=== PATIENT | female | born 1985 | race Caucasian/White ===

== ENCOUNTER 2016-05-05 07:38 | Inpatient (IN) | payer OTHER ==
[~2016-05-05] VITALS: Ht 160 cm; Wt 58.0 kg
[2016-05-05] MEDS ORDERED: CHARCOAL ACTIVATED LIQUID 25 GM/120 ML BTL As Ordered ONE (08:02)
[2016-05-05] MEDS ORDERED: ONDANSETRON 4MG/2ML VIAL (J2405) As Ordered ONE (08:16)
[2016-05-05 08:19] LABS: MEAN CORPUSCULAR HEMOGLOBIN 29.3 pg (27.0-33.0); MEAN CORPUSCULAR HGB CONC 34.2 g/dl (32.0-36.5); MEAN CORPUSCULAR VOLUME 85.6 fl (80.0-96.0); RED CELL DISTRIBUTION WIDTH 12.6 % (11.5-14.5); WHITE BLOOD COUNT 4.6 K/mm3 (4.0-10.0)
[2016-05-05 08:33] LABS: CONTROL LINE HCG INT CTR LINE PRESENT
[2016-05-05 08:56] LABS: ALBUMIN 4.1 GM/DL (3.2-5.2); ALBUMIN/GLOBULIN RATIO 1.78 (1.00-1.93); ALKALINE PHOSPHATASE 143 U/L (45-117); ALT/SGPT 32 U/L (12-78); ANION GAP 13 MEQ/L (8-16); AST/SGOT 27 U/L (15-37); BILIRUBIN,DIRECT 0.2 MG/DL (0.0-0.2); BILIRUBIN,TOTAL 1.1 MG/DL (0.2-1.0); BLOOD UREA NITROGEN 18 MG/DL (7-18); CALCIUM LEVEL 9.5 MG/DL (8.5-10.1); CARBON DIOXIDE LEVEL 29 MEQ/L (21-32); CHLORIDE LEVEL 101 MEQ/L (98-107); CREATININE FOR GFR 0.93 MG/DL (0.55-1.02); GLOMERULAR FILTRATION RATE > 60.0 (>60); GLUCOSE, FASTING 80 MG/DL (70-105); POTASSIUM SERUM 3.4 MEQ/L (3.5-5.1); SODIUM LEVEL 143 MEQ/L (136-145); TOTAL PROTEIN 6.4 GM/DL (6.4-8.2)
[2016-05-05 09:29] LABS: AMPHETAMINES LEVEL URINE NEGATIVE (NEGATIVE); BENZODIAZEPINES URINE POSITIVE (NEGATIVE); COCAINE METABOLITE URINE NEGATIVE (NEGATIVE); CONTROL LINE INT CTR LINE PRESENT; METHADONE URINE NEGATIVE (NEGATIVE); OPIATES URINE NEGATIVE (NEGATIVE); TRICYCLIC ANTIDEPRESS URINE NEGATIVE (NEGATIVE)
[2016-05-05] MEDS ORDERED: ALPR0.5T3 PO (15:35)
[2016-05-05] MEDS ORDERED: DRIS50002 PO (15:35)
[2016-05-05] MEDS ORDERED: OMEP40CA2 PO (15:35)
[2016-05-05] MEDS ORDERED: SERT-141 PO (15:35)
[2016-05-05] MEDS ORDERED: ACETAMINOPHEN 325 MG TAB As Ordered ONE (17:11)
--- NOTE | 2016-05-05 21:40 | EDDOCDS ---
Nurse's Notes [facility] Name: Farhana Pena Age: 30 yrs Sex: Female : 1985 Arrival Date: 05/05/2016 Time: 07:38 Bed [facility] MD: Diagnosis: Major depressive disorder, recurrent, moderate;Suicide attempt Presentation: 05/05 07:48 Presenting complaint: Patient states: ''I tried to overdose but it didn't work'', dwg admits to taking 15 Xanax last night at 830pm, 12 Zoloft at 530am today, and 5 ''painkillers'' at 7am today. Distraught after here kids were taken away from yesterday by their father. Suicide/Homicide risk assessment- The patient admits to and/or has been reported to be having suicidal ideations. The patient reports that he/she has experienced a significant life altering event in the last 30 days. Status: Patient is not a patient service rep or dependent. Transition of care: patient was not received from another setting of care. 07:48 Acuity: CECILLE Level 2 dw 07:48 Method Of Arrival: Wheelchair [facility] 07:56 Adult Sepsis Screening: Patient has new or worsening altered mentation (1 point). dwg Patient's respiratory rate is less than 22. Systolic blood pressure is greater than 100. Patient has a qSOFA score of 1- Negative Sepsis Screen. Red Flag criteria, patient assessed and taken directly to a bed. Triage Assessment: 07:53 General: Appears Awake and alert. Behavior is cooperative, flat. Pain: Location: lumbar dwg area, left low back and right low back. 21:37 HIV screening NA for this visit Offered previously. [facility] AUDITOR/QUALITY: 07:53 LMP 04/26/2016 dwg Historical: - Allergies: Denies any allergies; - Home Meds: 1. Unable to obtain, will contact [employer] on [email or web address] for med list 2. alprazolam 0.5 mg Oral tab 1 tab 3 times per day (Last dose: 05/05/2016) 3. Sertraline 50 mg daily - PMHx: Depression; iud in place; - PSHx: Gastric bypass Mar 2015; - The history from nurses notes was reviewed: and I agree with what is documented. - Social history: Smoking status: Patient uses tobacco products, current every day smoker. No barriers to communication noted, The patient speaks fluent Hungarian. - : Unable to assess if pt is on anticoagulants. Unable to Verify Home Med List with the patient / caregiver. - Hospitalizations: : No recent hospitalization is reported. - Exposure Risk Screening:: None identified. - Immunization history:: All immunizations up-to-date. - Family history: Not pertinent. - Social history:: the patient is a non-smoker, the patient drinks alcohol. Screenin:22 Screening information is obtained from the patient. Fall risk: No risks identified. mcp Assistance ADL's: requires no assistance with activities of daily living. Abuse/DV Screen: The patient / caregiver reports he/she is: not in a situation that causes fear, pain or injury. Nutritional screening: No deficits noted. Advance Directives: Currently, there is no health care proxy. There is no active DNR order. There is no Power of Oyster Un[employer]. home support is adequate. Assessment: 08:24 General: Appears in no apparent distress, Behavior is cooperative. Pain: Denies pain. mcp Neurological: Level of Consciousness is awake, alert, Oriented to person, place, time, Moves all extremities. Speech is normal, Pupils are PERRLA. Respiratory: Airway is patent Respiratory effort is even, unlabored, Breath sounds are clear bilaterally. GI: Abdomen is non- distended Bowel sounds present X 4 quads. Abd is soft and non tender X 4 quads. Derm: Skin is pink, warm & dry. 09:04 General: Awakened to give urine sample. OOB to bedside commode--steady gait. mcp 10:00 General: Appear sleeping on stretcher. . Respiratory: Airway is patent Respiratory mcp effort is even, unlabored. Derm: Skin is pink, warm & dry. 11:00 General: Appears in no apparent distress, comfortable, Behavior is cooperative. Pain: mcp Denies pain. Neurological: No deficits noted. Respiratory: Airway is patent Respiratory effort is even, unlabored. Derm: Skin is pink, warm & dry. 12:00 General: Appears in no apparent distress, comfortable, Behavior is cooperative. Pain: mcp Denies pain. Neurological: No deficits noted. Respiratory: Airway is patent Respiratory effort is even, unlabored. Derm: Skin is pink, warm & dry. 13:06 General: Took phone call from poison control, patient to be cleared for MHE at 2pm. NSR dwg on monitor. 14:19 Reassessment: Patient now resting on stretcher - had been retching. Now quiet and on kcs left side. Respirations easy. Color =pink. Security observing.. 15:22 Reassessment: Patient sleeping on stretcher - respirations easy. Color = pink. No kcs further retching. Security observing.. 16:42 Reassessment: Patient resting on stretcher - eyes closed. Respirations easy. Color = kcs pink. Security observing.. 17:03 Reassessment: Patient sleeping - roused with some urging. Denies nausea. States her kcs abdomen feels like it is on fire - provider informed. security observing.. 18:17 Reassessment: Dinner tray served - patient not eating.. kcs 20:00 General: Appears in no apparent distress, comfortable, Behavior is cooperative. slm General: security observing . Respiratory: Airway is patent Respiratory effort is even, unlabored. Derm: Skin is pink, warm & dry. 21:06 General: Appears in no apparent distress, comfortable, Behavior is appropriate for age, slm cooperative, pleasant, quiet. General: pt resting on stretcher security observing . Pain: Location: abdomen Pain currently is 6 out of 10 on a pain scale. Respiratory: Airway is patent Respiratory effort is even, unlabored. Derm: Skin is pink, warm & dry. Derm:. 21:36 General: Appears in no apparent distress, comfortable, Behavior is cooperative. slm General: pt admitted to [facility] . Respiratory: Airway is patent Respiratory effort is even, unlabored. Derm: Skin is pink, warm & dry. Mental Health Eval: 14:22 Mental health consult is initiated at 14:00. Status: The patient is not a ml4 patient service rep or dependent. [facility] Behavioral Health: The patient is not an established patient of [facility] Behavioral Health. Referral Information: Evaluation referral is generated by children's Father . The patient was referred for evaluation because pt admitted to her ex she intentionally took an OD in attempt to kill herself, therefore he brought her to [facility]. Subjective: The patients chief complaint is pt states, "I tried to kill myself, but apparently I didn't do a good job." Pt reports feeling depressed after boyfriend terminated their relationship 2 wks ago. Since the break-up, she's been drinking 1 bottle of vodka daily which triggered children's Father(ex ) to take away their 2 children(age 11 and 12) last night due to being an unfit Mother. Pt states, "I have nothing left to live for and I'm a horrible person." States she ingested 15 tablets of Xanax last night around 8:30 pm, then 12 tablets of Zoloft at 5:30 am, along with 5 painkillers at 7 am. Admits she would've ingested more medication, however did not have any left. Additionally, pt reports suffering from AH. She describes AH as "having conversations about me and saying I'm going to assisted." Pt denies command AH. She is very guarded at bedside and is not willing to discuss stressors further, yet continues to express SI with plan to OD. . Delusions are denied. Patient's mood is depressed, hopeless, Auditory Hallucinations are reported by the patient. 14:35 Mental Health history: depression, suicide attempt by OD(Ritalin) at age 12, was seen \\T\\ ml4 [facility] ED, but never transferred to an adolescent facility. Mental Health Admissions: [facility] OCT, 2006 Current Outpatient Mental Health Services: None. Current living environment is Family / Home Support: poor family support The patient currently lives alone after Father took away 2 children who were previously residing with pt. The patient is . Patient presents to Emergency Department with the following symptoms within the past 2 weeks: agitation, alcohol abuse, anger, anxiety, decreased appetite, depressed mood, auditory hallucinations stated by patient feelings of helplessness/hopelessness, poor concentration, poor impulse control, relational problem, sleep disturbance - insomnia, suicidal ideation with attempt/gesture by pills. Substance abuse: Patient uses of liquor, 1 bottle daily. Patient uses tobacco 1/2 pack Frequency daily. Mental status exam: Patients appearance is unkempt, Patient's behavior is cooperative, Speech is normal. Affect is restricted. Mood is depressed. Auditory Hallucinations are reported by the patient. Appetite is poor. Memory is good. Energy level is normal. Content of thought is depressive. due to suicide attempt and continues to express SI with plan Thought process is intact. Cognitive level is oriented to person, place, time and situation Patient's insight is poor. Judgement is poor. Rapport with interviewer is guarded. Suicidal Ideation present with a plan to kill self by pills. Homicidal ideation is denied. Disposition: Medically cleared for disposition by Vivek Waldron MD Psychiatric Consult is performed by phone with Dr Arlene Vargas. [facility] Admission Criteria: The patient has had a suicide attempt in the recent past. as described above . The patient is experiencing suicidal ideation. The patient requires continuous observation and/or control to protect self, others or property. The patient's care requires a multi-modal treatment plan under close supervision and coordination due to the complexity and severity of the patient's symptoms. The patient requires administration and monitoring of psychoactive medications by skilled medical providers due to the side effects of the psychoactive medications or significant dosage adjustments. Legal Status: Patient's legal status will be Emergency admission: . [place] Safe Act: [place] Safe Act is applicable to this patient. The patient poses a risk to self or other and the Nursing Progress Worker has been notified. He/She will enter the patient's data. DSM-V Differential Diagnosis: Major Depressive Disorder severe (F33.2). Narrative: Notice of Status and Rights, FAQ, and Bill of Rights was given at bedside. Awaiting: transfer to [facility]. Vital Signs: 07:53 BP 140 / 94; Pulse 87; Resp 20; Temp 96.6; Pulse Ox 98% on R/A; Weight 58.97 kg; Height dwg 5 ft. 6 in. (167.64 cm); Pain 8/10; 08:30 BP 153 / 95 (auto/); dwg 08:30 Pulse 79 MON; Pulse Ox 95% ; dwg 08:45 BP 150 / 99 (auto/); dwg 08:45 Pulse 73 MON; Pulse Ox 97% ; dwg 09:00 BP 147 / 89 (auto/); dwg 09:00 Pulse 73 MON; dwg 09:15 BP 149 / 88 (auto/); dwg 09:15 Pulse 79 MON; dwg 09:30 BP 148 / 85 (auto/); dwg 09:30 Pulse 80 MON; dwg 09:45 BP 150 / 90 (auto/); dwg 09:45 Pulse 81 MON; dwg 10:00 BP 149 / 90 (auto/); dwg 10:00 Pulse 79 MON; dwg 10:15 BP 146 / 92 (auto/); dwg 10:15 Pulse 81 MON; dwg 10:30 BP 133 / 87 (auto/); dwg 10:30 Pulse 78 MON; dwg 10:45 BP 139 / 86 (auto/); dwg 10:45 Pulse 81 MON; dwg 11:00 BP 138 / 84 (auto/); dwg 11:00 Pulse 80 MON; dwg 11:15 BP 147 / 85 (auto/); dwg 11:15 Pulse 74 MON; Pulse Ox 95% ; dwg 11:45 BP 154 / 88 (auto/); dwg 11:45 Pulse 70 MON; Pulse Ox 94% ; dwg 12:00 BP 147 / 87 (auto/); dwg 12:00 Pulse 71 MON; Pulse Ox 95% ; dwg 12:15 BP 146 / 86 (auto/); dwg 12:15 Pulse 69 MON; Pulse Ox 96% ; dwg 12:30 BP 149 / 83 (auto/); dwg 12:30 Pulse 70 MON; Pulse Ox 96% ; dwg 12:45 BP 148 / 78 (auto/); dwg 12:45 Pulse 77 MON; Pulse Ox 97% ; dwg 13:00 BP 137 / 74 (auto/); dwg 13:00 Pulse 71 MON; Pulse Ox 96% ; dwg 13:15 BP 134 / 79 (auto/); dwg 13:16 Pulse 68 MON; Pulse Ox 96% ; dwg 17:03 BP 143 / 78; Pulse 81; Resp 18; Temp 100.5(TE); Pulse Ox 96% on R/A; kcs 18:40 Temp 100.4(TE); kcs 20:00 BP 140 / 81; Pulse 67; Resp 16; Temp 96.5(T); Pulse Ox 95% ; Pain 5/10; mas 21:35 BP 136 / 90; Pulse 64; Resp 18; Temp 96.6(T); Pulse Ox 98% ; Pain 6/10; mas 07:53 Body Mass Index 20.98 (58.97 kg, 167.64 cm) [facility] Vitals: 07:53 Log In Time: May 05, 2016 at 07:35. [facility] ED Course: 07:39 Patient visited by Rico Xiao. mm15 07:39 Patient moved to Waiting mm15 07:47 Patient moved to 2 deg 07:50 Triage Initiated dwg 07:52 Vivek Waldron MD is Attending Physician. pc 07:52 Patient visited by Vivek Waldron MD. pc 07:55 EKG done. (by ED staff). Reviewed by Vivek Waldron MD. dem1 07:56 Pt greeted and oriented to ED. Patient advised of names of staff involved in care, dem1 location of call ya, wait times and NPO status. Patient has correct armband on for positive identification. Placed in psych safe attire. Bed in low position. Side rails up X2. boat canvas installer on. Pulse ox on. NIBP on. 07:57 Patient visited by Lindy Feldman. dem1 08:00 Security observing. pjf 08:00 Acetaminophen Level Sent. mcp 08:00 Basic Metabolic Profile Sent. [facility] 08:01 Complete Blood Count Sent. mcp 08:01 Ethyl Alcohol (ethanol) Sent. mcp 08:01 HCG,Serum Qualitative Sent. mcp 08:01 Liver Profile Sent. [facility] 08:01 Salicylate Level Sent. [facility] 08:01 Thyroid Stimulating Hormone Sent. mcp 08:15 Psych Safety Check: Location: Psych Room. Visual Assessment: Cooperative. pjf 08:22 The patient / caregiver is instructed regarding the plan of care and ED course. [facility] 08:22 Inserted saline lock: 18 gauge in right antecubital area and blood collected. The [facility] patient tolerated the procedure well. Labs drawn. (by ED staff). Sent per order to lab. 08:26 Patient visited by Rtuh Jasso RN. mcp 08:30 Patient visited by Zhen Gill Security Aide. pjf 08:43 Poison Control notified at 08:[address] Waldron. mcp 08:51 Patient visited by Zhen Gill Security Aide. pjf 08:55 Drug Eval Toxicology ED Only Sent. mcp 09:00 Patient visited by Zhen Gill Security Aide. pjf 09:04 Patient visited by Ruth Jasso RN. mcp 09:13 Patient visited by Zhen Gill Security Aide. pjf 10:16 Patient visited by Vivek Waldron MD. pc 10:48 Patient visited by Ruth Jasso, PAMELA. mcp 10:52 Property removed, secured in belongings bag- Placed in locker #3. pjf 12:13 Patient visited by Vivek Waldron MD. pc 13:23 Patient visited by Vivek Waldron MD. pc 13:30 Patient moved to [facility] dwg 13:31 [facility] Payment Agreement was scanned into [employer] and attached to record. mm15 13:34 Patient visited by Zhen Gill Security Aide. pjf 13:35 Patient visited by Ruth Jasso RN. mcp 13:59 Patient visited by Kathi Pritchett PSA. ml4 14:14 Patient visited by Zhen Gill Security Aide. pjf 14:34 Patient visited by Zhen Gill Security Aide. pjf 14:51 Patient visited by Zhen Gill Security Aide. pjf 15:04 Patient visited by Zhen Gill Security Aidwaqar. pjf 15:10 Arlene Vargas is Hospitalizing Provider. pc 15:15 Psych Safety Check: Location: Psych Room. Visual Assessment: Cooperative. pjf 15:30 Psych Safety Check: Location: Psych Room. Visual Assessment: Cooperative. pjf 15:45 Psych Safety Check: Location: Psych Room. Visual Assessment: Cooperative. pjf 16:00 Psych Safety Check: Location: Psych Room. Visual Assessment: Cooperative. pjf 16:58 Patient visited by Zhen Gill Security Aide. pjf 17:30 Patient visited by Zhen Gill Security Aide. pjf 17:57 Patient visited by Zhen Gill Security Aide. pjf 18:40 Patient visited by Zhen Gill Security Aide. pjf 18:54 Patient visited by Zhen Gill Security Aide. pjf 19:04 Patient visited by Zhen Gill Security Aidwaqar. pjf 19:06 Report given to Alaina Hart LPN. kcs 19:19 Patient visited by Francisco Hawthorne. mas 19:30 Patient visited by Francisco Hawthorne. mas 19:45 Patient visited by Francisco Hawthorne. mas 20:00 Alaina Hart LPN is Primary Nurse. slm 20:00 Patient visited by Francisco Hawthorne. mas 20:01 Patient visited by Alaina Hart LPN. slm 20:15 Patient visited by Francisco Hawthorne. mas 20:30 Patient visited by Francisco Hawthorne. mas 20:45 Patient visited by Francisco Hawthorne. mas 21:00 Patient visited by Francisco Hawthorne. mas 21:07 Patient visited by Alaina Hart LPN. slm 21:16 Patient visited by Francisco Hawthorne. mas 21:30 Patient visited by Francisco Hawthorne. mas 21:37 Patient visited by Alaina Hart LPN. slm 21:37 No procedures done that require assistance. slm Administered Medications: 08:15 Drug: Activated Charcoal (1g/kg) 50 grams [activated charcoal 25 gram/120 mL oral mcp suspension (4800 drps)] Route: PO; 08:22 Drug: Ondansetron 4 mg [ondansetron HCl 2 mg/mL intravenous solution (2 mL)] Route: mcp IVP; Site: right antecubital; 17:17 Drug: Acetaminophen 650 mg [acetaminophen 325 mg tablet (2 tabs)] Route: PO; kcs Order Results: Lab Order: Acetaminophen Level; SPEC'M 05/05/16 07:59 Test: ACETAMINOPHEN LEVEL; Value: 3.1; Range: 10.0-30.0; Abnormal: Below low normal; Units: UG/ML; Status: F Lab Order: Basic Metabolic Profile; SPEC'M 05/05/16 07:59 Test: GLUCOSE, FASTING; Value: 80; Range: 70-105; Units: MG/DL; Status: F Test: BLOOD UREA NITROGEN; Value: 18; Range: 7-18; Units: MG/DL; Status: F Test: CREATININE FOR GFR; Value: 0.93; Range: 0.55-1.02; Units: MG/DL; Status: F Test: SODIUM LEVEL; Range: 136-145; Units: MEQ/L; Status: I Test: POTASSIUM SERUM; Range: 3.5-5.1; Units: MEQ/L; Status: I Test: CHLORIDE LEVEL; Range: 98-107; Units: MEQ/L; Status: I Test: CARBON DIOXIDE LEVEL; Range: 21-32; Units: MEQ/L; Status: I Test: ANION GAP; Range: 8-16; Units: MEQ/L; Status: I Test: CALCIUM LEVEL; Range: 8.5-10.1; Units: MG/DL; Status: I Test: GLOMERULAR FILTRATION RATE; Value: > 60.0; Range: >60; Status: F Test: SODIUM LEVEL; Value: 143; Range: 136-145; Units: MEQ/L; Status: F Test: POTASSIUM SERUM; Value: 3.4; Range: 3.5-5.1; Abnormal: Below low normal; Units: MEQ/L; Status: F Test: CHLORIDE LEVEL; Value: 101; Range: 98-107; Units: MEQ/L; Status: F Test: CARBON DIOXIDE LEVEL; Value: 29; Range: 21-32; Units: MEQ/L; Status: F Test: ANION GAP; Value: 13; Range: 8-16; Units: MEQ/L; Status: F Test: CALCIUM LEVEL; Value: 9.5; Range: 8.5-10.1; Units: MG/DL; Status: F Test Note: ; Units are mL/min/1.73 m2 Chronic Kidney Disease Staging per NKF: Stage I & II GFR >=60 Normal to Mildly Decreased Stage III GFR 30-59 Moderately Decreased Stage IV GFR 15-29 Severely Decreased Stage V GFR <15 Very Little GFR Left ESRD GFR <15 on SAMPLE WEAVER Lab Order: Complete Blood Count; [facility]'M 05/05/16 07:59 Test: WHITE BLOOD COUNT; Value: 4.6; Range: 4.0-10.0; Units: K/mm3; Status: F Test: RED BLOOD COUNT; Value: 5.43; Range: 4.00-5.40; Abnormal: Above high normal; Units: M/mm3; Status: F Test: HEMOGLOBIN; Value: 15.9; Range: 12.0-16.0; Units: g/dl; Status: F Test: HEMATOCRIT; Value: 46.5; Range: 36.0-47.0; Units: %; Status: F Test: MEAN CORPUSCULAR VOLUME; Value: 85.6; Range: 80.0-96.0; Units: fl; Status: F Test: MEAN CORPUSCULAR HEMOGLOBIN; Value: 29.3; Range: 27.0-33.0; Units: pg; Status: F Test: MEAN CORPUSCULAR HGB CONC; Value: 34.2; Range: 32.0-36.5; Units: g/dl; Status: F Test: RED CELL DISTRIBUTION WIDTH; Value: 12.6; Range: 11.5-14.5; Units: %; Status: F Test: PLATELET COUNT, AUTOMATED; Value: 196; Range: 150-450; Units: k/mm3; Status: F Lab Order: Drug Eval Toxicology ED Only; [facility]' 05/05/16 08:53 Test: AMPHETAMINES LEVEL URINE; Value: NEGATIVE; Range: NEGATIVE; Status: F Test: BARBITURATES URINE; Value: NEGATIVE; Range: NEGATIVE; Status: F Test: BENZODIAZEPINES URINE; Value: POSITIVE; Range: NEGATIVE; Abnormal: Above high normal; Status: F Test: CANNABINOIDS URINE; Value: NEGATIVE; Range: NEGATIVE; Status: F Test: COCAINE METABOLITE URINE; Value: NEGATIVE; Range: NEGATIVE; Status: F Test: METHADONE URINE; Value: NEGATIVE; Range: NEGATIVE; Status: F Test: OPIATES URINE; Value: NEGATIVE; Range: NEGATIVE; Status: F Test: TRICYCLIC ANTIDEPRESS URINE; Value: NEGATIVE; Range: NEGATIVE; Status: F Test Note: ; ALL PRESUMPTIVE POSITIVE FINDINGS ARE UNCONFIRMED NORMAL VALUES THRESHOLD IN NG/ML AMPHETAMINES 1000 METHAMPHETAMINES 1000 BARBITURATES 300 BENZODIAZEPINES 300 CANNABINOIDS (THC) 50 COCAINE METABOLITE 300 METHADONE 300 OPIATES 300 PHENCYCLIDINE 25 TRICYCLIC ANTIDEPRESSANTS 1000 RESULTS ARE FOR MEDICAL PURPOSES ONLY. ALL URINE SPECIMENS WILL BE SAVED FOR 3 DAYS. IF CONFIRMATION OF A PRESUMPTIVE POSTIVE SCREEN RESULT IS DESIRED, CALL CHEMISTRY ([phone]) AND REQUEST URINE TO BE SENT TO REFERENCE LAB. FOR A LIST OF CLOSELY RELATED COMPOUNDS PLEASE CALL THE LAB. Lab Order: Ethyl Alcohol (ethanol); SPEC'M 05/05/16 07:59 Test: ETHYL ALCOHOL (ETHANOL); Value: 0.004; Range: 0.000-0.010; Units: %; Status: F Lab Order: HCG,Serum Qualitative; SPEC'M 05/05/16 07:59 Test: HCG, SERUM QUALITATIVE; Value: NEGATIVE; Range: NEGATIVE; Status: F Lab Order: Liver Profile; SPEC'M 05/05/16 07:59 Test: AST/SGOT; Value: 27; Range: 15-37; Units: U/L; Status: F Test: ALT/SGPT; Value: 32; Range: 12-78; Units: U/L; Status: F Test: ALKALINE PHOSPHATASE; Value: 143; Range: 45-117; Abnormal: Above high normal; Units: U/L; Status: F Test: BILIRUBIN,TOTAL; Value: 1.1; Range: 0.2-1.0; Abnormal: Above high normal; Units: MG/DL; Status: F Test: BILIRUBIN,DIRECT; Value: 0.2; Range: 0.0-0.2; Units: MG/DL; Status: F Test: TOTAL PROTEIN; Value: 6.4; Range: 6.4-8.2; Units: GM/DL; Status: F Test: ALBUMIN; Value: 4.1; Range: 3.2-5.2; Units: GM/DL; Status: F Test: ALBUMIN/GLOBULIN RATIO; Value: 1.78; Range: 1.00-1.93; Status: F Lab Order: Salicylate Level; SPEC'M 05/05/16 07:59 Test: SALICYLATE LEVEL; Value: 3.3; Range: 5.0-30.0; Abnormal: Below low normal; Units: MG/DL; Status: F Lab Order: Thyroid Stimulating Hormone; SPEC'M 05/05/16 07:59 Test: THYROID STIMULATING HORMONE; Value: 0.765; Range: 0.358-3.740; Units: uIU/ML; Status: F Outcome: 15:10 Decision to Hospitalize by Provider. 21:36 Discharge Assessment: Patient awake, alert and oriented x 3. No cognitive and/or slm functional deficits noted. Patient verbalized understanding of disposition instructions. patient administered narcotics - no. The following High Risk Discharge criteria are identified: None. Admitted to Psych accompanied by tech, via wheelchair, with chart. Condition: stable. No special radiology studies were completed. 21:39 Patient left the ED. slm Signatures: Vivek Waldron MD MD pc Sleeman, Kacey RN Maribel Arriaga, Japanese Interpreter Unit deg Jovani Brumfield RN RN dwg Peters, Mary, RN RN mcp Ferendzo, Paul, Security Aide Securpjf Yarely, Kathi, PSA PSA ml4 Francisco Hawthorne Demeishia dem1 Rico Xiao mm15 Alaina Hart LPN LPN nena Corrections: (The following items were deleted from the chart) 14:22 Referral Information: Evaluation referral is generated by children's Father . The ml4 patient was referred for evaluation because pt admitted to her children's Father she intentionally took an OD in attempt to kill herself, therefore he brought her to [facility]. ml4 14:22 Subjective: The patients chief complaint is pt states, "I tried to kill myself, ml4 but apparently I didn't do a good job." . ml4 MTDD
--- NOTE | 2016-05-05 21:40 | EDDOCDS ---
Physician Documentation [facility] Name: Farhana Pena Age: 30 yrs Sex: Female : 1985 Arrival Date: 05/05/2016 Time: 07:38 Bed U3 Private MD: Disposition: 05/05 15:09 Critical Care: Critical care not applicable. pc Disposition: 05/05/16 15:10 Hospitalization ordered by Arlene Vargas for Inpatient Admission. Preliminary diagnosis are Major depressive disorder, recurrent, moderate, Suicide attempt. - Bed requested for Admit. - Status is Inpatient Admission. slm - Condition is Stable. - Problem is new. - Symptoms are unchanged. HPI: 08:00 This 30 yrs old Female presents to ER via Wheelchair with complaints of pc Possible Overdose. 08:00 The history is obtained from the patient. The patient presents to the emergency pc department with depression, suicide attempt, intentional drug overdose. The patient's intention was to commit suicide. At their worst, the symptoms were moderate. In the emergency department, the symptoms are unchanged. Her children were taken away by there father yesterday and she attempted suicide by taking Xanax last evening, Zoloft and a narcotic this morning, without success. The patient has not experienced similar symptoms in the past. The patient has not recently seen a physician. Historical: - Allergies: Denies any allergies; - Home Meds: 1. Unable to obtain, [facility] for med list 2. alprazolam 0.5 mg Oral tab 1 tab 3 times per day (Last dose: 05/05/2016) 3. Sertraline 50 mg daily - PMHx: Depression; iud in place; - PSHx: Gastric bypass Mar 2015; - The history from nurses notes was reviewed: and I agree with what is documented. - Social history: Smoking status: Patient uses tobacco products, current every day smoker. No barriers to communication noted, The patient speaks fluent [place]. - : Unable to assess if pt is on anticoagulants. Unable to Verify Home Med List with the patient / caregiver. - Hospitalizations: : No recent hospitalization is reported. - Exposure Risk Screening:: None identified. - Immunization history:: All immunizations up-to-date. - Family history: Not pertinent. - Social history:: the patient is a non-smoker, the patient drinks alcohol. DIRECTOR OF INTELLIGENCE: 07:53 LMP 04/26/2016 dwg ROS: 08:00 All systems are negative except as listed. The psychiatric and neurological components pc are also addressed in the HPI. Exam: 08:00 General Appearance: alert, no acute distress. pc 08:00 ENT: ear, nose and throat normal, pharynx normal. 08:00 Eyes: pupils equal, round and reactive to light, extraocular motions intact. 08:00 Neck: The exam reveals no acute abnormalities. ROM is normal and painless. No nuchal rigidity is noted.. 08:00 Respiratory: breathing is even and unlabored, breath sounds are normal. 08:00 Cardiovascular: regular pulse rate, regular heart rhythm, normal heart sounds, equal and full pulses bilaterally. 08:00 Abdomen: soft, non-tender, no organomegaly, normal bowel sounds. 08:00 Skin: skin color is normal, warm, dry. 08:00 Extremities: The extremities have a grossly normal appearance, are non-tender, without acute ROM abnormalities. 08:00 Neuro: alert, oriented to person, place and time, cranial nerves normal as tested, no motor deficits, no sensory deficits. 08:00 Psych: mood is depressed, suicidal, affect is flat. Vital Signs: 07:53 BP 140 / 94; Pulse 87; Resp 20; Temp 96.6; Pulse Ox 98% on R/A; Weight 58.97 kg / dwg 130.01 lbs; Height 5 ft. 6 in. (167.64 cm); Pain 8/10; 08:30 BP 153 / 95 (auto/); dwg 08:30 Pulse 79 MON; Pulse Ox 95% ; dwg 08:45 BP 150 / 99 (auto/); dwg 08:45 Pulse 73 MON; Pulse Ox 97% ; dwg 09:00 BP 147 / 89 (auto/); dwg 09:00 Pulse 73 MON; dwg 09:15 BP 149 / 88 (auto/); dwg 09:15 Pulse 79 MON; dwg 09:30 BP 148 / 85 (auto/); dwg 09:30 Pulse 80 MON; dwg 09:45 BP 150 / 90 (auto/); dwg 09:45 Pulse 81 MON; dwg 10:00 BP 149 / 90 (auto/); dwg 10:00 Pulse 79 MON; dwg 10:15 BP 146 / 92 (auto/); dwg 10:15 Pulse 81 MON; dwg 10:30 BP 133 / 87 (auto/); dwg 10:30 Pulse 78 MON; dwg 10:45 BP 139 / 86 (auto/); dwg 10:45 Pulse 81 MON; dwg 11:00 BP 138 / 84 (auto/); dwg 11:00 Pulse 80 MON; dwg 11:15 BP 147 / 85 (auto/); dwg 11:15 Pulse 74 MON; Pulse Ox 95% ; dwg 11:45 BP 154 / 88 (auto/); dwg 11:45 Pulse 70 MON; Pulse Ox 94% ; dwg 12:00 BP 147 / 87 (auto/); dwg 12:00 Pulse 71 MON; Pulse Ox 95% ; dwg 12:15 BP 146 / 86 (auto/); dwg 12:15 Pulse 69 MON; Pulse Ox 96% ; dwg 12:30 BP 149 / 83 (auto/); dwg 12:30 Pulse 70 MON; Pulse Ox 96% ; dwg 12:45 BP 148 / 78 (auto/); dwg 12:45 Pulse 77 MON; Pulse Ox 97% ; dwg 13:00 BP 137 / 74 (auto/); dwg 13:00 Pulse 71 MON; Pulse Ox 96% ; dwg 13:15 BP 134 / 79 (auto/); dwg 13:16 Pulse 68 MON; Pulse Ox 96% ; dwg 17:03 BP 143 / 78; Pulse 81; Resp 18; Temp 100.5(TE); Pulse Ox 96% on R/A; kcs 18:40 Temp 100.4(TE); kcs 20:00 BP 140 / 81; Pulse 67; Resp 16; Temp 96.5(T); Pulse Ox 95% ; Pain 5/10; mas 21:35 BP 136 / 90; Pulse 64; Resp 18; Temp 96.6(T); Pulse Ox 98% ; Pain 6/10; mas 07:53 Body Mass Index 20.98 (58.97 kg, 167.64 cm) dwg MDM: 07:54 Activated Charcoal (1g/kg) Suspension 50 grams PO once ordered. pc 07:54 Consult PFS/PSA/Teachers Aide: Patient's case requires discussion with on-call pc Psychiatrist ordered. 07:54 PSA/PFS to call Nursing Microfiche Camera Operator, to enter patient data on [place] Safe [place] if patient pc involuntarily admitted or transferred for SI or HI ordered. 07:54 Call Poison Control ordered. pc 07:54 Service Manager/Pulse Ox/q 15 min VS ordered. pc 07:54 Confirm accurate psychiatric medication list and times of last dosage ordered. pc 07:54 Detain Pt Until Medically/PFS Cleared ordered. pc 07:54 IV Saline Lock ordered. pc 07:55 Acetaminophen Level Ordered. EDMS 07:56 Basic Metabolic Profile Ordered. EDMS 07:56 Complete Blood Count Ordered. EDMS 07:56 Drug Eval Toxicology ED Only Ordered. EDMS 07:56 Ethyl Alcohol (ethanol) Ordered. EDMS 07:56 HCG,Serum Qualitative Ordered. EDMS 07:56 Liver Profile Ordered. EDMS 07:56 Salicylate Level Ordered. EDMS 07:56 Thyroid Stimulating Hormone Ordered. EDMS 07:56 ECG WITH READING ER PHYS+CARDIAG ordered. EDMS 08:00 Differential diagnosis: depression, suicide attempt, polysubstance overdose. Plan: pc labs, EKG, Poison Control, PFS. Test interpretation: EKG. 08:14 Ondansetron 4 mg IVP once ordered. pc 09:34 Acetaminophen Level Reviewed. pc 09:34 Basic Metabolic Profile Reviewed. pc 09:34 Complete Blood Count Reviewed. pc 09:34 Drug Eval Toxicology ED Only Reviewed. pc 09:34 Liver Profile Reviewed. pc 09:34 Salicylate Level Reviewed. pc 09:34 Ethyl Alcohol (ethanol) Reviewed. pc 09:34 HCG,Serum Qualitative Reviewed. pc 09:34 Thyroid Stimulating Hormone Reviewed. pc 13:26 Financial registration complete. mm15 13:31 [facility] [place] Payment Agreement was scanned into legalPAD and attached to record. mm15 14:13 Consult PFS/PSA/Teachers Aide: Patient's case requires discussion with on-call ml4 Psychiatrist complete. 14:13 PSA/PFS to call Nursing Microfiche Camera Operator, to enter patient data [place] Safe [place] if patient ml4 involuntarily admitted or transferred for SI or HI complete. 15:09 The patient has been medically cleared for psychiatric evaluation, admission and/or pc transfer. [place] Safe Act reporting: The patient poses a significant risk to self or others, and PSA/PFS has notified the Nursing Microfiche Camera Operator and he/she will complete the required marketing database analyst. Data reviewed: old medical records, vital signs, nurses notes, EKG(s), lab test results. Test interpretation: LAB - all labs as ordered have been reviewed, interpreted and considered in the overall management of the clinical presentation;. The patient has been re-examined and re-evaluated. There is no appreciated change of the patient's symptoms at this time. Disposition: The historical points, examination findings, and any diagnostic results supporting the provided diagnosis, were discussed with the patient or legal guardian. The need for further work-up and/or treatment in the hospital was explained. 16:23 REGULAR DIET PLASTIC MCDANIEL+DIET ordered. EDMS 17:13 Acetaminophen Tablet 650 mg PO once ordered. kcs 18:57 Admit to [facility]: ordered. EDMS EC:00 Rate is 86 beats/min. Rhythm is regular, Normal Sinus Rhythm. QRS [place] is Normal. HI pc interval is normal. QRS interval is normal. QT interval is normal. No Q waves. T waves are Normal. No ST changes noted. Clinical impression: Normal Sinus Rhythm. Administered Medications: 08:15 Drug: Activated Charcoal (1g/kg) 50 grams [activated charcoal 25 gram/120 mL oral mcp suspension (4800 drps)] Route: PO; 08:22 Drug: Ondansetron 4 mg [ondansetron HCl 2 mg/mL intravenous solution (2 mL)] Route: mcp IVP; Site: right antecubital; 17:17 Drug: Acetaminophen 650 mg [acetaminophen 325 mg tablet (2 tabs)] Route: PO; [facility] Signatures: Dispatcher [employer] EDNH Vivek Waldron MD MD pc Sleeman, Kacey RN Jovani Zuniga RN RN dwg Treadwell, Michelle, PSA PSA ml4 Rico Xiao mm15 Alaina Hart LPN LPN slm Peters, Mary RN [facility] The chart was reviewed and I authenticate all verbal orders and agree with the evaluation and treatment provided.Attachments: 13:31 [facility] Payment Agreement mm15 MTDD
[2016-05-05 21:45] VITALS: BP 160/89
[2016-05-05] MEDS ORDERED: MAALOX 30 ML SUSP *UDC PO PRN (23:15)
[2016-05-05] MEDS ORDERED: MOM 30ML SUSPENSION UDC PO PRN (23:15)
[2016-05-05] MEDS: traZODone 50 MG TAB PO PRN (23:44)
[2016-05-05] MEDS: ACETAMINOPHEN TAB 650MG DOSE (2X325MG) PO PRN (23:45)
[2016-05-06 06:28] VITALS: BP 143/78
[2016-05-06] MEDS ORDERED: SERTRALINE 100 MG TAB PO SCH (09:00)
--- NOTE | 2016-05-06 09:47 | HPEPDOC ---
Medical History and Physical Date of Admission May 05, 2016 at 21:48 History and Physical PCP: Dr Andersen ATTENDING: Dr. Julián Courtney HPI: 30yoF admitted to [facility] for Unspecified depressive disorder, being medically examined today. Patient had admitted to taking 15 Xanax, 12 Zoloft and 5 "pain killers " prior to admission. Patient was medically stabilized in the emergency room and received activated charcoal. Pt states she has vomited x 8 since admission. Reports upper abdominal discomfort. Across the right upper quadrant and left upper quadrant. States she has been keeping some liquids down. She has history of gastric bypass procedure 08/02. She states she does have history of intermittent vomiting. She is requesting STI screening related to recent sexual contact. She reports it was consensual intercourse. Denies any fevers, chills, weakness, fatigue, NICK, CP, SOB, cough, palpitations, or changes in bowel or bladder habits. PMHx: Depression History of SI Anxiety GERD Tobacco use PSHX: History of gastric sleeve Gastric dilation procedures Cholecystectomy Gastric bypass 08/02- follows with Dr. 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 Illicit Drugs: Denies IV Drug Use: Denies Tattoos done unprofessionally: Denies FAMHX: Mother: Alive, history of MS Father: Alive, well Siblings: Alive, well Children: Alive, daughter with history of depression Unexpected deaths due to medical reasons: None. ROS: As noted in HPI, otherwise 11pt ROS of systems reviewed and remarkable only for LMP 04/26/16 PE: GEN: 30 yo F, appears stated age. Well-nourished, well developed. No acute distress. Alert and oriented x 3. Pleasant, interactive. HEENT: Normocephalic, atraumatic. Pupils are equal, round, and reactive to light. Extraocular movements are intact. No nystagmus appreciated. Sclera are nonicteric. Conjunctiva without injection. Nose midline. Nasal turbinates without bogginess. EACs both patent BL. TMs both visualized and haro with good cone of light, no bulging or erythema. No facial asymmetry. Dry mucous membranes. Dentition fair. Pharynx pink and moist, no cobblestoning. Neck supple , trachea midline. No lymphadenopathy or thyromegaly appreciated. CHEST: Regular rate and rhythm, +S1, +S2 LUNGS: Clear to auscultation bilaterally. No wheezes, rales, or rhonchi. Breathing appears symmetric and easy. Patient is speaking in full sentences. No accessory muscle use. ABD: Flat, soft, TTP RUQ/LUQ, non-distended. +Bowel sounds throughout. No rebound or guarding. No costovertebral angle tenderness. EXT: Pulses 2+ bilaterally dorsalis pedis and radial. No lower extremity edema appreciated. SKIN: Wells, dry, warm. Capillary refill <2sec. No rashes. NEURO: Alert and oriented x 3. Cranial nerves III-XII are intact. No focal deficits appreciated. EKG: pending. A&P: 30yoF admitted to [facility] for Unspecified depressive disorder 1. Psych. Plan per Psychiatry. Obtain baseline EKG to assure the safety of psychiatric medications as they can prolong the QT interval. 2. Nicotine dependence. Patch available. 3. Abdominal pain/vomiting. CBC, CMP, lipase. Consider further testing pending results. 4. Follow up with PCP on discharge. 5. STI screening. Urine for chlamydia and gonorrhea requested. HIV/hepatitis/ RPR screening requested. 6. GERD. Remains on Prilosec 40 mg daily. 7. Hypokalemia. CMP pending. 8. Pt has requested Plan B contraception related to recent unprotected intercourse. Quant HCG <1.0. Discussed with Dr Castillo RESIDENT IN DIAGNOSTIC RADIOLOGY, who agrees no contraindications to administering. This was ordered, discussed again with pt, who wishes to proceed. 9. Staff member present throughout exam, [place] Pyrometallurgical Engineer. Vital Signs Vital Signs Label Value Date Time Patient Temperature 96.3 degrees F 05/06/16627 Temperature Source Tympanic 05/06/16627 Pulse 61 05/06/16627 Respiratory Rate 18 bpm 05/06/16627 Blood Pressure Assessment 143/78 (99) 05/06/16627 Laboratory Data Labs 24H Item Value Date Time White Blood Count 4.6 K/mm3 05/05/16 075 Red Blood Count 5.43 M/mm3 H 05/05/16 075 Hemoglobin 15.9 g/dl 05/05/16758 Hematocrit 46.5 % 05/05/16758 Mean Corpuscular Volume 85.6 fl 05/05/16758 Mean Corpuscular Hemoglobin 29.3 pg 05/05/16758 Mean Corpuscular Hemoglobin Concent 34.2 g/dl 05/05/16758 Red Cell Distribution Width 12.6 % 05/05/16758 Platelet Count 196 k/mm3 05/05/16 0759 Sodium Level 143 MEQ/L 05/05/16 0759 Potassium Level 3.4 MEQ/L L 05/05/16758 Chloride Level 101 MEQ/L 05/05/16 075 Carbon Dioxide Level 29 MEQ/L 05/05/16 075 Anion Gap 13 MEQ/L 05/05/16 075 Blood Urea Nitrogen 18 MG/DL 05/05/16 075 Creatinine 0.93 MG/DL 05/05/16758 Glomerular Filtration Rate > 60.0 05/05/16758 Fasting Glucose 80 MG/DL 05/05/16 0759 Calcium Level 9.5 MG/DL 05/05/16 0759 Total Bilirubin 1.1 MG/DL H 05/05/16 0759 Direct Bilirubin 0.2 MG/DL 05/05/16 075 Aspartate Amino Transf (AST/SGOT) 27 U/L 05/05/16 075 Alanine Aminotransferase (ALT/SGPT) 32 U/L 05/05/16 075 Alkaline Phosphatase 143 U/L H 05/05/16 0759 Total Protein 6.4 GM/DL 05/05/16758 Albumin 4.1 GM/DL 05/05/16 075 Albumin/Globulin Ratio 1.78 05/05/16 075 Thyroid Stimulating Hormone (TSH) 0.765 uIU/ML 05/05/16 075 Human Chorionic Gonadotropin, Qual NEGATIVE 05/05/16758 Home Medications Scheduled Omeprazole (Omeprazole) 40 Mg Cap 40 MG PO DAILY Sertraline Hcl (Sertraline HCl) 50 Mg Tab 50 MG PO DAILY Vitamin D (Drisdol) 50,000 Unit Cap 50,000 UNIT PO QWEEK TAKES ON SUNDAYS Scheduled PRN Alprazolam (Alprazolam) 0.5 Mg Tab 0.5 MG PO TID PRN PRN ANXIETY Allergies Coded Allergies: No Known Allergies (Verified Allergy, Unknown, 11/01/06) Sherry Talavera May 06, 2016 09:47
[2016-05-06] MEDS: OMEPRAZOLE 20 MG CAP PO SCH (10:06)
[2016-05-06 10:07] LABS: BASO % 0.3 % (0.0-1.0); EOS # 0.1 K/mm3 (0.0-0.50); EOS % 2.3 % (0.0-3.0); LARGE UNSTAINED CELL # 0.1 K/mm3 (0.0-0.4); LARGE UNSTAINED CELL % 1.4 % (0.0-4.0); LYMPH % 17.4 % (24.0-44.0); MEAN CORPUSCULAR HEMOGLOBIN 29.1 pg (27.0-33.0); MEAN CORPUSCULAR VOLUME 85.5 fl (80.0-96.0); MONO # 0.2 K/mm3 (0.0-0.8); MONO % 3.7 % (0.0-5.0); NEUTROPHILS # 4.2 K/mm3 (1.8-7.7); NEUTROPHILS % 74.9 % (36.0-66.0); PLATELET COUNT, AUTOMATED 195 k/mm3 (150-450); RED CELL DISTRIBUTION WIDTH 12.6 % (11.5-14.5); WHITE BLOOD COUNT 5.6 K/mm3 (4.0-10.0)
[2016-05-06 10:25] LABS: ALBUMIN 3.7 GM/DL (3.2-5.2); ALBUMIN/GLOBULIN RATIO 1.42 (1.00-1.93); ALKALINE PHOSPHATASE 127 U/L (45-117); ALT/SGPT 26 U/L (12-78); ANION GAP 10 MEQ/L (8-16); AST/SGOT 20 U/L (15-37); BILIRUBIN,TOTAL 0.9 MG/DL (0.2-1.0); BLOOD UREA NITROGEN 17 MG/DL (7-18); CARBON DIOXIDE LEVEL 31 MEQ/L (21-32); CHLORIDE LEVEL 100 MEQ/L (98-107); CREATININE FOR GFR 0.87 MG/DL (0.55-1.02); GLOMERULAR FILTRATION RATE > 60.0 (>60); GLUCOSE, FASTING 84 MG/DL (70-105); HCG, SERUM QUANTITATIVE < 1.0 MIU/ML; SODIUM LEVEL 141 MEQ/L (136-145); TOTAL PROTEIN 6.3 GM/DL (6.4-8.2)
[2016-05-06 11:43] LABS: CONTROL LINE INT CTR LINE PRESENT; HIV SCRN NEGATIVE (NEGATIVE); HIV SCRN1 NEGATIVE (NEGATIVE)
[2016-05-06] MEDS ORDERED: ULIPRISTAL ACETATE 30 MG TAB (ELLA) PO ONE (13:00)
[2016-05-06] MEDS: ACETAMINOPHEN TAB 650MG DOSE (2X325MG) PO PRN (17:38)
[2016-05-06 18:00] VITALS: BP 140/88
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
--- NOTE | 2016-05-06 19:34 | ECGEPIP ---
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
[2016-05-07 06:59] VITALS: BP 121/85
[2016-05-07 07:00] VITALS: BP 121/85
[2016-05-07] MEDS: OMEPRAZOLE 20 MG CAP PO SCH (08:40)
[2016-05-07] MEDS: SERTRALINE 100 MG TAB PO SCH (08:40)
[2016-05-07 11:21] VITALS: BP 129/81
[2016-05-07 14:00] VITALS: BP 138/77
--- NOTE | 2016-05-07 17:31 | ECGEPIP ---
Stationary ECG Study [facility] [place] Test Date: 2016-05-07 Pat Name: ROSANNE KEE Department: Room: [place] [address] Gender: F Software Lead: SANA : 1985 Requested By: Sherry Talavera Order Number: [id number] Reading MD: Denver Tellez Measurements Intervals [place] Rate: 67 P: 71 NM: 127 QRS: 73 QRSD: 88 T: 58 QT: 415 QTc: 440 Interpretive Statements SINUS RHYTHM Normal Electronically Signed On 05-07-2016 17:31:00 EST by Denver Tellez
[2016-05-07] MEDS: ALPRAZolam 0.5 MG TAB PO PRN (17:56)
[2016-05-07 18:00] VITALS: BP 124/81
[2016-05-07 21:00] VITALS: BP 128/82
[2016-05-07] MEDS: traZODone 50 MG TAB PO PRN (21:49)
--- NOTE | 2016-05-07 22:39 | EDDOCDS ---
Nurse's Notes [facility] Name: Farhana Pena Age: 30 yrs Sex: Female : 1985 Arrival Date: 05/05/2016 Time: 07:38 Bed [facility] MD: Diagnosis: Major depressive disorder, recurrent, moderate;Suicide attempt Presentation: 05/05 07:48 Presenting complaint: Patient states: ''I tried to overdose but it didn't work'', dwg admits to taking 15 Xanax last night at 830pm, 12 Zoloft at 530am today, and 5 ''painkillers'' at 7am today. Distraught after here kids were taken away from yesterday by their father. Suicide/Homicide risk assessment- The patient admits to and/or has been reported to be having suicidal ideations. The patient reports that he/she has experienced a significant life altering event in the last 30 days. 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 Transition of care: patient was not received from another setting of care. 07:48 Acuity: CECILLE Level 2 dw 07:48 Method Of Arrival: Wheelchair [facility] 07:56 Adult Sepsis Screening: Patient has new or worsening altered mentation (1 point). dwg Patient's respiratory rate is less than 22. Systolic blood pressure is greater than 100. Patient has a qSOFA score of 1- Negative Sepsis Screen. Red Flag criteria, patient assessed and taken directly to a bed. Triage Assessment: 07:53 General: Appears Awake and alert. Behavior is cooperative, flat. Pain: Location: lumbar dwg area, left low back and right low back. 21:37 HIV screening NA for this visit Offered previously. 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 Unable to obtain, [facility] [employer] for med list 2. alprazolam 0.5 mg Oral tab 1 tab 3 times per day (Last dose: 05/05/2016) 3. Sertraline 50 mg daily - PMHx: Depression; iud in place; - PSHx: Gastric bypass Mar 2015; - The history from nurses notes was reviewed: and I agree with what is documented. - Social history: Smoking status: Patient uses tobacco products, current every day smoker. No barriers to communication noted, The patient speaks fluent Mohawk. - : Unable to assess if pt is on anticoagulants. Unable to Verify Home Med List with the patient / caregiver. - Hospitalizations: : No recent hospitalization is reported. - Exposure Risk Screening:: None identified. - Immunization history:: All immunizations up-to-date. - Family history: Not pertinent. - Social history:: the patient is a non-smoker, the patient drinks alcohol. Screenin:22 Screening information is obtained from the patient. Fall risk: No risks identified. mcp Assistance ADL's: requires no assistance with activities of daily living. Abuse/DV Screen: The patient / caregiver reports he/she is: not in a situation that causes fear, pain or injury. Nutritional screening: No deficits noted. Advance Directives: Currently, there is no health care proxy. There is no active DNR order. There is no Power of Apiarist. home support is adequate. Assessment: 08:24 General: Appears in no apparent distress, Behavior is cooperative. Pain: Denies pain. mcp Neurological: Level of Consciousness is awake, alert, Oriented to person, place, time, Moves all extremities. Speech is normal, Pupils are PERRLA. Respiratory: Airway is patent Respiratory effort is even, unlabored, Breath sounds are clear bilaterally. GI: Abdomen is non- distended Bowel sounds present X 4 quads. Abd is soft and non tender X 4 quads. Derm: Skin is pink, warm & dry. 09:04 General: Awakened to give urine sample. OOB to bedside commode--steady gait. mcp 10:00 General: Appear sleeping on stretcher. . Respiratory: Airway is patent Respiratory mcp effort is even, unlabored. Derm: Skin is pink, warm & dry. 11:00 General: Appears in no apparent distress, comfortable, Behavior is cooperative. Pain: mcp Denies pain. Neurological: No deficits noted. Respiratory: Airway is patent Respiratory effort is even, unlabored. Derm: Skin is pink, warm & dry. 12:00 General: Appears in no apparent distress, comfortable, Behavior is cooperative. Pain: mcp Denies pain. Neurological: No deficits noted. Respiratory: Airway is patent Respiratory effort is even, unlabored. Derm: Skin is pink, warm & dry. 13:06 General: Took phone call from poison control, patient to be cleared for MHE at 2pm. NSR dwg on monitor. 14:19 Reassessment: Patient now resting on stretcher - had been retching. Now quiet and on kcs left side. Respirations easy. Color =pink. Security observing.. 15:22 Reassessment: Patient sleeping on stretcher - respirations easy. Color = pink. No kcs further retching. Security observing.. 16:42 Reassessment: Patient resting on stretcher - eyes closed. Respirations easy. Color = kcs pink. Security observing.. 17:03 Reassessment: Patient sleeping - roused with some urging. Denies nausea. States her kcs abdomen feels like it is on fire - provider informed. security observing.. 18:17 Reassessment: Dinner tray served - patient not eating.. kcs 20:00 General: Appears in no apparent distress, comfortable, Behavior is cooperative. slm General: security observing . Respiratory: Airway is patent Respiratory effort is even, unlabored. Derm: Skin is pink, warm & dry. 21:06 General: Appears in no apparent distress, comfortable, Behavior is appropriate for age, slm cooperative, pleasant, quiet. General: pt resting on stretcher security observing . Pain: Location: abdomen Pain currently is 6 out of 10 on a pain scale. Respiratory: Airway is patent Respiratory effort is even, unlabored. Derm: Skin is pink, warm & dry. Derm:. 21:36 General: Appears in no apparent distress, comfortable, Behavior is cooperative. slm General: pt admitted to [facility] . Respiratory: Airway is patent Respiratory effort is even, unlabored. Derm: Skin is pink, warm & dry. Mental Health Eval: 14:22 Mental health consult is initiated at 14:00. 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 [facility] Behavioral Health: The patient is not an established patient of [facility] Behavioral Health. Referral Information: Evaluation referral is generated by children's Father . The patient was referred for evaluation because pt admitted to her ex she intentionally took an OD in attempt to kill herself, therefore he brought her to [facility]. Subjective: The patients chief complaint is pt states, "I tried to kill myself, but apparently I didn't do a good job." Pt reports feeling depressed after boyfriend terminated their relationship 2 wks ago. Since the break-up, she's been drinking 1 bottle of vodka daily which triggered children's Father(ex ) to take away their 2 children(age 11 and 12) last night due to being an unfit Mother. Pt states, "I have nothing left to live for and I'm a horrible person." States she ingested 15 tablets of Xanax last night around 8:30 pm, then 12 tablets of Zoloft at 5:30 am, along with 5 painkillers at 7 am. Admits she would've ingested more medication, however did not have any left. Additionally, pt reports suffering from AH. She describes AH as "having conversations about me and saying I'm going to senior living." Pt denies command AH. She is very guarded at bedside and is not willing to discuss stressors further, yet continues to express SI with plan to OD. . Delusions are denied. Patient's mood is depressed, hopeless, Auditory Hallucinations are reported by the patient. 14:35 Mental Health history: depression, suicide attempt by OD(Ritalin) at age 12, was seen \\T\\ ml4 [facility] ED, but never transferred to an adolescent facility. Mental Health Admissions: [facility], 2006 Current Outpatient Mental Health Services: None. Current living environment is Family / Home Support: poor family support The patient currently lives alone after Father took away 2 children who were previously residing with pt. The patient is . Patient presents to Emergency Department with the following symptoms within the past 2 weeks: agitation, alcohol abuse, anger, anxiety, decreased appetite, depressed mood, auditory hallucinations stated by patient feelings of helplessness/hopelessness, poor concentration, poor impulse control, relational problem, sleep disturbance - insomnia, suicidal ideation with attempt/gesture by pills. Substance abuse: Patient uses of liquor, 1 bottle daily. Patient uses tobacco 1/2 pack Frequency daily. Mental status exam: Patients appearance is unkempt, Patient's behavior is cooperative, Speech is normal. Affect is restricted. Mood is depressed. Auditory Hallucinations are reported by the patient. Appetite is poor. Memory is good. Energy level is normal. Content of thought is depressive. due to suicide attempt and continues to express SI with plan Thought process is intact. Cognitive level is oriented to person, place, time and situation Patient's insight is poor. Judgement is poor. Rapport with interviewer is guarded. Suicidal Ideation present with a plan to kill self by pills. Homicidal ideation is denied. Disposition: Medically cleared for disposition by Vivek Waldron MD Psychiatric Consult is performed by phone with Dr Arlene Vargas. [facility] Admission Criteria: The patient has had a suicide attempt in the recent past. as described above . The patient is experiencing suicidal ideation. The patient requires continuous observation and/or control to protect self, others or property. The patient's care requires a multi-modal treatment plan under close supervision and coordination due to the complexity and severity of the patient's symptoms. The patient requires administration and monitoring of psychoactive medications by skilled medical providers due to the side effects of the psychoactive medications or significant dosage adjustments. Legal Status: Patient's legal status will be Emergency admission: . [place] Safe Act: [place] Safe [place] is applicable to this patient. The patient poses a risk to self or other and the Nursing Production Recovery Operator has been notified. He/She will enter the patient's data. DSM-V Differential Diagnosis: Major Depressive Disorder severe (F33.2). Narrative: Notice of Status and Rights, FAQ, and Bill of Rights was given at bedside. Awaiting: transfer to [facility]. 05/06 13:15 Insurance Pre-Certification: approved by: Approved by Fritz Patel\\ [facility] for 5 days with ms review on 05/09 with Ruth Patel\\ [phone]. [phone] Authorization # [id number].. Vital Signs: 05/05 07:53 BP 140 / 94; Pulse 87; Resp 20; Temp 96.6; Pulse Ox 98% on R/A; Weight 58.97 kg; Height dwg 5 ft. 6 in. (167.64 cm); Pain 8/10; 08:30 BP 153 / 95 (auto/); dwg 08:30 Pulse 79 MON; Pulse Ox 95% ; dwg 08:45 BP 150 / 99 (auto/); dwg 08:45 Pulse 73 MON; Pulse Ox 97% ; dwg 09:00 BP 147 / 89 (auto/); dwg 09:00 Pulse 73 MON; dwg 09:15 BP 149 / 88 (auto/); dwg 09:15 Pulse 79 MON; dwg 09:30 BP 148 / 85 (auto/); dwg 09:30 Pulse 80 MON; dwg 09:45 BP 150 / 90 (auto/); dwg 09:45 Pulse 81 MON; dwg 10:00 BP 149 / 90 (auto/); dwg 10:00 Pulse 79 MON; dwg 10:15 BP 146 / 92 (auto/); dwg 10:15 Pulse 81 MON; dwg 10:30 BP 133 / 87 (auto/); dwg 10:30 Pulse 78 MON; dwg 10:45 BP 139 / 86 (auto/); dwg 10:45 Pulse 81 MON; dwg 11:00 BP 138 / 84 (auto/); dwg 11:00 Pulse 80 MON; dwg 11:15 BP 147 / 85 (auto/); dwg 11:15 Pulse 74 MON; Pulse Ox 95% ; dwg 11:45 BP 154 / 88 (auto/); dwg 11:45 Pulse 70 MON; Pulse Ox 94% ; dwg 12:00 BP 147 / 87 (auto/); dwg 12:00 Pulse 71 MON; Pulse Ox 95% ; dwg 12:15 BP 146 / 86 (auto/); dwg 12:15 Pulse 69 MON; Pulse Ox 96% ; dwg 12:30 BP 149 / 83 (auto/); dwg 12:30 Pulse 70 MON; Pulse Ox 96% ; dwg 12:45 BP 148 / 78 (auto/); dwg 12:45 Pulse 77 MON; Pulse Ox 97% ; dwg 13:00 BP 137 / 74 (auto/); dwg 13:00 Pulse 71 MON; Pulse Ox 96% ; dwg 13:15 BP 134 / 79 (auto/); dwg 13:16 Pulse 68 MON; Pulse Ox 96% ; dwg 17:03 BP 143 / 78; Pulse 81; Resp 18; Temp 100.5(TE); Pulse Ox 96% on R/A; kcs 18:40 Temp 100.4(TE); kcs 20:00 BP 140 / 81; Pulse 67; Resp 16; Temp 96.5(T); Pulse Ox 95% ; Pain 5/10; mas 21:35 BP 136 / 90; Pulse 64; Resp 18; Temp 96.6(T); Pulse Ox 98% ; Pain 6/10; mas 07:53 Body Mass Index 20.98 (58.97 kg, 167.64 cm) dwg Vitals: 07:53 Log In Time: May 05, 2016 at 07:35. [facility] ED Course: 07:39 Patient visited by Rico Xiao. mm15 07:39 Patient moved to Waiting mm15 07:47 Patient moved to 2 deg 07:50 Triage Initiated dwg 07:52 Vivek Waldron MD is Attending Physician. pc 07:52 Patient visited by Vivek Waldron MD. pc 07:55 EKG done. (by ED staff). Reviewed by Vivek Waldron MD. dem1 07:56 Pt greeted and oriented to ED. Patient advised of names of staff involved in care, dem1 location of call ya, wait times and NPO status. Patient has correct armband on for positive identification. Placed in psych safe attire. Bed in low position. Side rails up X2. surveillance monitor on. Pulse ox on. NIBP on. 07:57 Patient visited by Lindy Feldman. dem1 08:00 Security observing. pjf 08:00 Acetaminophen Level Sent. mcp 08:00 Basic Metabolic Profile Sent. [facility] 08:01 Complete Blood Count Sent. mcp 08:01 Ethyl Alcohol (ethanol) Sent. mcp 08:01 HCG,Serum Qualitative Sent. mcp 08:01 Liver Profile Sent. mcp 08:01 Salicylate Level Sent. mcp 08:01 Thyroid Stimulating Hormone Sent. [facility] 08:15 Psych Safety Check: Location: Psych Room. Visual Assessment: Cooperative. pjf 08:22 The patient / caregiver is instructed regarding the plan of care and ED course. [facility] 08:22 Inserted saline lock: 18 gauge in right antecubital area and blood collected. The [facility] patient tolerated the procedure well. Labs drawn. (by ED staff). Sent per order to lab. 08:26 Patient visited by Ruth Jasso RN. mcp 08:30 Patient visited by Zhen Gill Security Aide. pjf 08:43 Poison Control notified at 08:[address] Waldron. mcp 08:51 Patient visited by Zhen Gill Security Aide. pjf 08:55 Drug Eval Toxicology ED Only Sent. mcp 09:00 Patient visited by Zhen Gill Security Aide. pjf 09:04 Patient visited by Ruth Jasso RN. mcp 09:13 Patient visited by Zhen Gill Security Aide. pjf 10:16 Patient visited by Vivek Waldron MD. pc 10:48 Patient visited by Ruth Jasso, PAMELA. mcp 10:52 Property removed, secured in belongings bag- Placed in locker #3. pjf 12:13 Patient visited by Vivek Waldron MD. pc 13:23 Patient visited by Vivek Waldron MD. pc 13:30 Patient moved to [facility] dwg 13:31 [facility] Payment Agreement was scanned into [employer] and attached to record. mm15 13:34 Patient visited by Zhen Gill Security Aide. pjf 13:35 Patient visited by Ruth Jasso, PAMELA. mcp 13:59 Patient visited by Kathi Pritchett PSA. ml4 14:14 Patient visited by Zhen Gill Security Aide. pjf 14:34 Patient visited by Zhen Gill Security Aide. pjf 14:51 Patient visited by Zhen Gill Security Aide. pjf 15:04 Patient visited by Zhen Gill Security Aide. pjf 15:10 Arlene Vargas is Hospitalizing Provider. pc 15:15 Psych Safety Check: Location: Psych Room. Visual Assessment: Cooperative. pjf 15:30 Psych Safety Check: Location: Psych Room. Visual Assessment: Cooperative. pjf 15:45 Psych Safety Check: Location: Psych Room. Visual Assessment: Cooperative. pjf 16:00 Psych Safety Check: Location: Psych Room. Visual Assessment: Cooperative. pjf 16:58 Patient visited by Zhen Gill Security Aidwaqar. pjf 17:30 Patient visited by Zhen Gill Security Aide. pjf 17:57 Patient visited by Zhen Gill Security Aidwaqar. pjf 18:40 Patient visited by Zhen Gill Security Aidwaqar. pjf 18:54 Patient visited by Zhen Gill Security Aide. pjf 19:04 Patient visited by Zhen Gill Security Aide. pjf 19:06 Report given to Alaina Hart LPN. kcs 19:19 Patient visited by Francisco Hawthorne. mas 19:30 Patient visited by Francisco Hawthorne. mas 19:45 Patient visited by Francisco Hawthorne. mas 20:00 Alaina Hart LPN is Primary Nurse. slm 20:00 Patient visited by Francisco Hawthorne. mas 20:01 Patient visited by Alaina Hart LPN. slm 20:15 Patient visited by Francisco Hawthorne. mas 20:30 Patient visited by Francisco Hawthorne. mas 20:45 Patient visited by Francisco Hawthorne. mas 21:00 Patient visited by Francisco Hawthorne. mas 21:07 Patient visited by Alaina Hart LPN. slm 21:16 Patient visited by Francisco Hawthorne. mas 21:30 Patient visited by Francisco Hawthorne. mas 21:37 Patient visited by Alaina Hart LPN. slm 21:37 No procedures done that require assistance. [facility] 05/06 11:54 ECG/EKG was scanned into [employer] and attached to record. gb Administered Medications: 05/05 08:15 Drug: Activated Charcoal (1g/kg) 50 grams [activated charcoal 25 gram/120 mL oral mcp suspension (4800 drps)] Route: PO; 08:22 Drug: Ondansetron 4 mg [ondansetron HCl 2 mg/mL intravenous solution (2 mL)] Route: mcp IVP; Site: right antecubital; 17:17 Drug: Acetaminophen 650 mg [acetaminophen 325 mg tablet (2 tabs)] Route: PO; kcs Order Results: Lab Order: Acetaminophen Level; SPEC'M 05/05/16 07:59 Test: ACETAMINOPHEN LEVEL; Value: 3.1; Range: 10.0-30.0; Abnormal: Below low normal; Units: UG/ML; Status: F Lab Order: Basic Metabolic Profile; SPEC'M 05/05/16 07:59 Test: GLUCOSE, FASTING; Value: 80; Range: 70-105; Units: MG/DL; Status: F Test: BLOOD UREA NITROGEN; Value: 18; Range: 7-18; Units: MG/DL; Status: F Test: CREATININE FOR GFR; Value: 0.93; Range: 0.55-1.02; Units: MG/DL; Status: F Test: SODIUM LEVEL; Range: 136-145; Units: MEQ/L; Status: I Test: POTASSIUM SERUM; Range: 3.5-5.1; Units: MEQ/L; Status: I Test: CHLORIDE LEVEL; Range: 98-107; Units: MEQ/L; Status: I Test: CARBON DIOXIDE LEVEL; Range: 21-32; Units: MEQ/L; Status: I Test: ANION GAP; Range: 8-16; Units: MEQ/L; Status: I Test: CALCIUM LEVEL; Range: 8.5-10.1; Units: MG/DL; Status: I Test: GLOMERULAR FILTRATION RATE; Value: > 60.0; Range: >60; Status: F Test: SODIUM LEVEL; Value: 143; Range: 136-145; Units: MEQ/L; Status: F Test: POTASSIUM SERUM; Value: 3.4; Range: 3.5-5.1; Abnormal: Below low normal; Units: MEQ/L; Status: F Test: CHLORIDE LEVEL; Value: 101; Range: 98-107; Units: MEQ/L; Status: F Test: CARBON DIOXIDE LEVEL; Value: 29; Range: 21-32; Units: MEQ/L; Status: F Test: ANION GAP; Value: 13; Range: 8-16; Units: MEQ/L; Status: F Test: CALCIUM LEVEL; Value: 9.5; Range: 8.5-10.1; Units: MG/DL; Status: F Test Note: ; Units are mL/min/1.73 m2 Chronic Kidney Disease Staging per NKF: Stage I & II GFR >=60 Normal to Mildly Decreased Stage III GFR 30-59 Moderately Decreased Stage IV GFR 15-29 Severely Decreased Stage V GFR <15 Very Little GFR Left ESRD GFR <15 on [employer] Lab Order: Complete Blood Count; SPEC'M 05/05/16 07:59 Test: WHITE BLOOD COUNT; Value: 4.6; Range: 4.0-10.0; Units: K/mm3; Status: F Test: RED BLOOD COUNT; Value: 5.43; Range: 4.00-5.40; Abnormal: Above high normal; Units: M/mm3; Status: F Test: HEMOGLOBIN; Value: 15.9; Range: 12.0-16.0; Units: g/dl; Status: F Test: HEMATOCRIT; Value: 46.5; Range: 36.0-47.0; Units: %; Status: F Test: MEAN CORPUSCULAR VOLUME; Value: 85.6; Range: 80.0-96.0; Units: fl; Status: F Test: MEAN CORPUSCULAR HEMOGLOBIN; Value: 29.3; Range: 27.0-33.0; Units: pg; Status: F Test: MEAN CORPUSCULAR HGB CONC; Value: 34.2; Range: 32.0-36.5; Units: g/dl; Status: F Test: RED CELL DISTRIBUTION WIDTH; Value: 12.6; Range: 11.5-14.5; Units: %; Status: F Test: PLATELET COUNT, AUTOMATED; Value: 196; Range: 150-450; Units: k/mm3; Status: F Lab Order: Drug Eval Toxicology ED Only; SPEC'05/05/16 08:53 Test: AMPHETAMINES LEVEL URINE; Value: NEGATIVE; Range: NEGATIVE; Status: F Test: BARBITURATES URINE; Value: NEGATIVE; Range: NEGATIVE; Status: F Test: BENZODIAZEPINES URINE; Value: POSITIVE; Range: NEGATIVE; Abnormal: Above high normal; Status: F Test: CANNABINOIDS URINE; Value: NEGATIVE; Range: NEGATIVE; Status: F Test: COCAINE METABOLITE URINE; Value: NEGATIVE; Range: NEGATIVE; Status: F Test: METHADONE URINE; Value: NEGATIVE; Range: NEGATIVE; Status: F Test: OPIATES URINE; Value: NEGATIVE; Range: NEGATIVE; Status: F Test: TRICYCLIC ANTIDEPRESS URINE; Value: NEGATIVE; Range: NEGATIVE; Status: F Test Note: ; ALL PRESUMPTIVE POSITIVE FINDINGS ARE UNCONFIRMED NORMAL VALUES THRESHOLD IN NG/ML AMPHETAMINES 1000 METHAMPHETAMINES 1000 BARBITURATES 300 BENZODIAZEPINES 300 CANNABINOIDS (THC) 50 COCAINE METABOLITE 300 METHADONE 300 OPIATES 300 PHENCYCLIDINE 25 TRICYCLIC ANTIDEPRESSANTS 1000 RESULTS ARE FOR MEDICAL PURPOSES ONLY. ALL URINE SPECIMENS WILL BE SAVED FOR 3 DAYS. IF CONFIRMATION OF A PRESUMPTIVE POSTIVE SCREEN RESULT IS DESIRED, CALL CHEMISTRY ([phone]) AND REQUEST URINE TO BE SENT TO REFERENCE LAB. FOR A LIST OF CLOSELY RELATED COMPOUNDS PLEASE CALL THE LAB. Lab Order: Ethyl Alcohol (ethanol); SPEC'M 05/05/16 07:59 Test: ETHYL ALCOHOL (ETHANOL); Value: 0.004; Range: 0.000-0.010; Units: %; Status: F Lab Order: HCG,Serum Qualitative; SPEC'M 05/05/16 07:59 Test: HCG, SERUM QUALITATIVE; Value: NEGATIVE; Range: NEGATIVE; Status: F Lab Order: Liver Profile; SPEC'M 05/05/16 07:59 Test: AST/SGOT; Value: 27; Range: 15-37; Units: U/L; Status: F Test: ALT/SGPT; Value: 32; Range: 12-78; Units: U/L; Status: F Test: ALKALINE PHOSPHATASE; Value: 143; Range: 45-117; Abnormal: Above high normal; Units: U/L; Status: F Test: BILIRUBIN,TOTAL; Value: 1.1; Range: 0.2-1.0; Abnormal: Above high normal; Units: MG/DL; Status: F Test: BILIRUBIN,DIRECT; Value: 0.2; Range: 0.0-0.2; Units: MG/DL; Status: F Test: TOTAL PROTEIN; Value: 6.4; Range: 6.4-8.2; Units: GM/DL; Status: F Test: ALBUMIN; Value: 4.1; Range: 3.2-5.2; Units: GM/DL; Status: F Test: ALBUMIN/GLOBULIN RATIO; Value: 1.78; Range: 1.00-1.93; Status: F Lab Order: Salicylate Level; SPEC'05/05/16 07:59 Test: SALICYLATE LEVEL; Value: 3.3; Range: 5.0-30.0; Abnormal: Below low normal; Units: MG/DL; Status: F Lab Order: Thyroid Stimulating Hormone; SPEC'05/05/16 07:59 Test: THYROID STIMULATING HORMONE; Value: 0.765; Range: 0.358-3.740; Units: uIU/ML; Status: F Outcome: 15:10 Decision to Hospitalize by Provider. 21:36 Discharge Assessment: Patient awake, alert and oriented x 3. No cognitive and/or slm functional deficits noted. Patient verbalized understanding of disposition instructions. patient administered narcotics - no. The following High Risk Discharge criteria are identified: None. Admitted to Psych accompanied by tech, via wheelchair, with chart. Condition: stable. No special radiology studies were completed. 21:39 Patient left the ED. slm Signatures: Vivek Waldron MD MD pc Sleeman, Kacey, RN RN Maribel Gutierrez, Studio Engineer Unit deg Jovani Brumfield, RN Ruth June, RN PAMELA Khan, Ruth, PSA PSA ms Nick, Tracy, Reg Reg Bridget, Zhen, Security Aide Securp Yarely, Kathi, PSA PSA ml4 Christoph, Francisco gary Feldman, Lindy dem1 Rico Xiao mm15 Alaina Hart,HOT MILL SHEARER HOT MILL SHEARER slm Corrections: (The following items were deleted from the chart) 14:22 Referral Information: Evaluation referral is generated by children's Father . The ml4 patient was referred for evaluation because pt admitted to her children's Father she intentionally took an OD in attempt to kill herself, therefore he brought her to [facility]. ml4 14:22 Subjective: The patients chief complaint is pt states, "I tried to kill myself, ml4 but apparently I didn't do a good job." . ml4 Chart Complete MTDD
--- NOTE | 2016-05-07 22:39 | EDDOCDS ---
Physician Documentation [facility] Name: Farhana Pena Age: 30 yrs Sex: Female : 1985 Arrival Date: 05/05/2016 Time: 07:38 Bed U3 Private MD: Disposition: 05/05 15:09 Critical Care: Critical care not applicable. pc Disposition: 05/05/16 15:10 Hospitalization ordered by Arlene Vargas for Inpatient Admission. Preliminary diagnosis are Major depressive disorder, recurrent, moderate, Suicide attempt. - Bed requested for Admit. - Status is Inpatient Admission. slm - Condition is Stable. - Problem is new. - Symptoms are unchanged. HPI: 08:00 This 30 yrs old Female presents to ER via Wheelchair with complaints of pc Possible Overdose. 08:00 The history is obtained from the patient. The patient presents to the emergency pc department with depression, suicide attempt, intentional drug overdose. The patient's intention was to commit suicide. At their worst, the symptoms were moderate. In the emergency department, the symptoms are unchanged. Her children were taken away by there father yesterday and she attempted suicide by taking Xanax last evening, Zoloft and a narcotic this morning, without success. The patient has not experienced similar symptoms in the past. The patient has not recently seen a physician. Historical: - Allergies: Denies any allergies; - Home Meds: 1. Unable to obtain, will contact [facility] [address] for med list 2. alprazolam 0.5 mg Oral tab 1 tab 3 times per day (Last dose: 05/05/2016) 3. Sertraline 50 mg daily - PMHx: Depression; iud in place; - PSHx: Gastric bypass Mar 2015; - The history from nurses notes was reviewed: and I agree with what is documented. - Social history: Smoking status: Patient uses tobacco products, current every day smoker. No barriers to communication noted, The patient speaks fluent Serbian. - : Unable to assess if pt is on anticoagulants. Unable to Verify Home Med List with the patient / caregiver. - Hospitalizations: : No recent hospitalization is reported. - Exposure Risk Screening:: None identified. - Immunization history:: All immunizations up-to-date. - Family history: Not pertinent. - Social history:: the patient is a non-smoker, the patient drinks alcohol. 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 The psychiatric and neurological components pc are also addressed in the HPI. Exam: 08:00 General Appearance: alert, no acute distress. pc 08:00 ENT: ear, nose and throat normal, pharynx normal. 08:00 Eyes: pupils equal, round and reactive to light, extraocular motions intact. 08:00 Neck: The exam reveals no acute abnormalities. ROM is normal and painless. No nuchal rigidity is noted.. 08:00 Respiratory: breathing is even and unlabored, breath sounds are normal. 08:00 Cardiovascular: regular pulse rate, regular heart rhythm, normal heart sounds, equal and full pulses bilaterally. 08:00 Abdomen: soft, non-tender, no organomegaly, normal bowel sounds. 08:00 Skin: skin color is normal, warm, dry. 08:00 Extremities: The extremities have a grossly normal appearance, are non-tender, without acute ROM abnormalities. 08:00 Neuro: alert, oriented to person, place and time, cranial nerves normal as tested, no motor deficits, no sensory deficits. 08:00 Psych: mood is depressed, suicidal, affect is flat. Vital Signs: 07:53 BP 140 / 94; Pulse 87; Resp 20; Temp 96.6; Pulse Ox 98% on R/A; Weight 58.97 kg / dwg 130.01 lbs; Height 5 ft. 6 in. (167.64 cm); Pain 8/10; 08:30 BP 153 / 95 (auto/); dwg 08:30 Pulse 79 MON; Pulse Ox 95% ; dwg 08:45 BP 150 / 99 (auto/); dwg 08:45 Pulse 73 MON; Pulse Ox 97% ; dwg 09:00 BP 147 / 89 (auto/); dwg 09:00 Pulse 73 MON; dwg 09:15 BP 149 / 88 (auto/); dwg 09:15 Pulse 79 MON; dwg 09:30 BP 148 / 85 (auto/); dwg 09:30 Pulse 80 MON; dwg 09:45 BP 150 / 90 (auto/); dwg 09:45 Pulse 81 MON; dwg 10:00 BP 149 / 90 (auto/); dwg 10:00 Pulse 79 MON; dwg 10:15 BP 146 / 92 (auto/); dwg 10:15 Pulse 81 MON; dwg 10:30 BP 133 / 87 (auto/); dwg 10:30 Pulse 78 MON; dwg 10:45 BP 139 / 86 (auto/); dwg 10:45 Pulse 81 MON; dwg 11:00 BP 138 / 84 (auto/); dwg 11:00 Pulse 80 MON; dwg 11:15 BP 147 / 85 (auto/); dwg 11:15 Pulse 74 MON; Pulse Ox 95% ; dwg 11:45 BP 154 / 88 (auto/); dwg 11:45 Pulse 70 MON; Pulse Ox 94% ; dwg 12:00 BP 147 / 87 (auto/); dwg 12:00 Pulse 71 MON; Pulse Ox 95% ; dwg 12:15 BP 146 / 86 (auto/); dwg 12:15 Pulse 69 MON; Pulse Ox 96% ; dwg 12:30 BP 149 / 83 (auto/); dwg 12:30 Pulse 70 MON; Pulse Ox 96% ; dwg 12:45 BP 148 / 78 (auto/); dwg 12:45 Pulse 77 MON; Pulse Ox 97% ; dwg 13:00 BP 137 / 74 (auto/); dwg 13:00 Pulse 71 MON; Pulse Ox 96% ; dwg 13:15 BP 134 / 79 (auto/); dwg 13:16 Pulse 68 MON; Pulse Ox 96% ; dwg 17:03 BP 143 / 78; Pulse 81; Resp 18; Temp 100.5(TE); Pulse Ox 96% on R/A; kcs 18:40 Temp 100.4(TE); kcs 20:00 BP 140 / 81; Pulse 67; Resp 16; Temp 96.5(T); Pulse Ox 95% ; Pain 5/10; mas 21:35 BP 136 / 90; Pulse 64; Resp 18; Temp 96.6(T); Pulse Ox 98% ; Pain 6/10; mas 07:53 Body Mass Index 20.98 (58.97 kg, 167.64 cm) dwg MDM: 07:54 Activated Charcoal (1g/kg) Suspension 50 grams PO once ordered. pc 07:54 Consult PFS/PSA/Accounts Receivable Representative: Patient's case requires discussion with on-call pc Psychiatrist ordered. 07:54 PSA/PFS to call Nursing Engineering Designer, to enter patient data on [place] if patient pc involuntarily admitted or transferred for SI or HI ordered. 07:54 Call Poison Control ordered. pc 07:54 Power Generation Turbine Room Operator/Pulse Ox/q 15 min VS ordered. pc 07:54 Confirm accurate psychiatric medication list and times of last dosage ordered. pc 07:54 Detain Pt Until Medically/PFS Cleared ordered. pc 07:54 IV Saline Lock ordered. pc 07:55 Acetaminophen Level Ordered. EDMS 07:56 Basic Metabolic Profile Ordered. EDMS 07:56 Complete Blood Count Ordered. EDMS 07:56 Drug Eval Toxicology ED Only Ordered. EDMS 07:56 Ethyl Alcohol (ethanol) Ordered. EDMS 07:56 HCG,Serum Qualitative Ordered. EDMS 07:56 Liver Profile Ordered. EDMS 07:56 Salicylate Level Ordered. EDMS 07:56 Thyroid Stimulating Hormone Ordered. EDMS 07:56 ECG WITH READING ER PHYS+CARDIAG ordered. EDMS 08:00 Differential diagnosis: depression, suicide attempt, polysubstance overdose. Plan: pc labs, EKG, Poison Control, PFS. Test interpretation: EKG. 08:14 Ondansetron 4 mg IVP once ordered. pc 09:34 Acetaminophen Level Reviewed. pc 09:34 Basic Metabolic Profile Reviewed. pc 09:34 Complete Blood Count Reviewed. pc 09:34 Drug Eval Toxicology ED Only Reviewed. pc 09:34 Liver Profile Reviewed. pc 09:34 Salicylate Level Reviewed. pc 09:34 Ethyl Alcohol (ethanol) Reviewed. pc 09:34 HCG,Serum Qualitative Reviewed. pc 09:34 Thyroid Stimulating Hormone Reviewed. pc 13:26 Financial registration complete. mm15 13:31 [facility] Payment Agreement was scanned into [employer] and attached to record. mm15 14:13 Consult PFS/PSA/Accounts Receivable Representative: Patient's case requires discussion with on-call ml4 Psychiatrist complete. 14:13 PSA/PFS to call Nursing Engineering Designer, to enter patient data [place] if patient ml4 involuntarily admitted or transferred for SI or HI complete. 15:09 The patient has been medically cleared for psychiatric evaluation, admission and/or pc transfer. [place] Safe [place] reporting: The patient poses a significant risk to self or others, and PSA/PFS has notified the Nursing Engineering Designer and he/she will complete the required data integrity specialist. Data reviewed: old medical records, vital signs, nurses notes, EKG(s), lab test results. Test interpretation: LAB - all labs as ordered have been reviewed, interpreted and considered in the overall management of the clinical presentation;. The patient has been re-examined and re-evaluated. There is no appreciated change of the patient's symptoms at this time. Disposition: The historical points, examination findings, and any diagnostic results supporting the provided diagnosis, were discussed with the patient or legal guardian. The need for further work-up and/or treatment in the hospital was explained. 16:23 REGULAR DIET PLASTIC MCDANIEL+DIET ordered. EDMS 17:13 Acetaminophen Tablet 650 mg PO once ordered. kcs 18:57 Admit to [facility]: ordered. EDAR 05/06 11:54 ECG/EKG was scanned into [employer] and attached to record. EC/16 08:00 Rate is 86 beats/min. Rhythm is regular, Normal Sinus Rhythm. QRS [place] is Normal. [place] pc interval is normal. QRS interval is normal. QT interval is normal. No Q waves. T waves are Normal. No ST changes noted. Clinical impression: Normal Sinus Rhythm. Administered Medications: 08:15 Drug: Activated Charcoal (1g/kg) 50 grams [activated charcoal 25 gram/120 mL oral mcp suspension (4800 drps)] Route: PO; 08:22 Drug: Ondansetron 4 mg [ondansetron HCl 2 mg/mL intravenous solution (2 mL)] Route: mcp IVP; Site: right antecubital; 17:17 Drug: Acetaminophen 650 mg [acetaminophen 325 mg tablet (2 tabs)] Route: PO; [facility] Signatures: Dispatcher [email or web address] [facility] Vivek Waldron MD MD pc Sleeman, Kacey RN Jovani Zuniga RN RN Tracy Hernandez, Reg Reg gb Yarely, Kathi, PSA PSA ml4 Rico Xiao mm15 Alaina Hart LPN LPN slm Peters, Mary RN [facility] The chart was reviewed and I authenticate all verbal orders and agree with the evaluation and treatment provided.Attachments: 13:31 [facility] Payment Agreement mm15 05/06 11:54 ECG/EKG Chart Complete MTDD
--- NOTE | 2016-05-07 22:39 | EDDOCDS ---
Physician Documentation [facility] Name: Farhana Pena Age: 30 yrs Sex: Female : 1985 Arrival Date: 05/05/2016 Time: 07:38 Bed U3 Private MD: Disposition: 05/05 15:09 Critical Care: Critical care not applicable. pc Disposition: 05/05/16 15:10 Hospitalization ordered by Arlene Vargas for Inpatient Admission. Preliminary diagnosis are Major depressive disorder, recurrent, moderate, Suicide attempt. - Bed requested for Admit. - Status is Inpatient Admission. slm - Condition is Stable. - Problem is new. - Symptoms are unchanged. HPI: 08:00 This 30 yrs old Female presents to ER via Wheelchair with complaints of pc Possible Overdose. 08:00 The history is obtained from the patient. The patient presents to the emergency pc department with depression, suicide attempt, intentional drug overdose. The patient's intention was to commit suicide. At their worst, the symptoms were moderate. In the emergency department, the symptoms are unchanged. Her children were taken away by there father yesterday and she attempted suicide by taking Xanax last evening, Zoloft and a narcotic this morning, without success. The patient has not experienced similar symptoms in the past. The patient has not recently seen a physician. Historical: - Allergies: Denies any allergies; - Home Meds: 1. Unable to obtain, will contact [facility] on [address] for med list 2. alprazolam 0.5 mg Oral tab 1 tab 3 times per day (Last dose: 05/05/2016) 3. Sertraline 50 mg daily - PMHx: Depression; iud in place; - PSHx: Gastric bypass Mar 2015; - The history from nurses notes was reviewed: and I agree with what is documented. - Social history: Smoking status: Patient uses tobacco products, current every day smoker. No barriers to communication noted, The patient speaks fluent Ghanaian. - : Unable to assess if pt is on anticoagulants. Unable to Verify Home Med List with the patient / caregiver. - Hospitalizations: : No recent hospitalization is reported. - Exposure Risk Screening:: None identified. - Immunization history:: All immunizations up-to-date. - Family history: Not pertinent. - Social history:: the patient is a non-smoker, the patient drinks alcohol. 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 The psychiatric and neurological components pc are also addressed in the HPI. Exam: 08:00 General Appearance: alert, no acute distress. pc 08:00 ENT: ear, nose and throat normal, pharynx normal. 08:00 Eyes: pupils equal, round and reactive to light, extraocular motions intact. 08:00 Neck: The exam reveals no acute abnormalities. ROM is normal and painless. No nuchal rigidity is noted.. 08:00 Respiratory: breathing is even and unlabored, breath sounds are normal. 08:00 Cardiovascular: regular pulse rate, regular heart rhythm, normal heart sounds, equal and full pulses bilaterally. 08:00 Abdomen: soft, non-tender, no organomegaly, normal bowel sounds. 08:00 Skin: skin color is normal, warm, dry. 08:00 Extremities: The extremities have a grossly normal appearance, are non-tender, without acute ROM abnormalities. 08:00 Neuro: alert, oriented to person, place and time, cranial nerves normal as tested, no motor deficits, no sensory deficits. 08:00 Psych: mood is depressed, suicidal, affect is flat. Vital Signs: 07:53 BP 140 / 94; Pulse 87; Resp 20; Temp 96.6; Pulse Ox 98% on R/A; Weight 58.97 kg / dwg 130.01 lbs; Height 5 ft. 6 in. (167.64 cm); Pain 8/10; 08:30 BP 153 / 95 (auto/); dwg 08:30 Pulse 79 MON; Pulse Ox 95% ; dwg 08:45 BP 150 / 99 (auto/); dwg 08:45 Pulse 73 MON; Pulse Ox 97% ; dwg 09:00 BP 147 / 89 (auto/); dwg 09:00 Pulse 73 MON; dwg 09:15 BP 149 / 88 (auto/); dwg 09:15 Pulse 79 MON; dwg 09:30 BP 148 / 85 (auto/); dwg 09:30 Pulse 80 MON; dwg 09:45 BP 150 / 90 (auto/); dwg 09:45 Pulse 81 MON; dwg 10:00 BP 149 / 90 (auto/); dwg 10:00 Pulse 79 MON; dwg 10:15 BP 146 / 92 (auto/); dwg 10:15 Pulse 81 MON; dwg 10:30 BP 133 / 87 (auto/); dwg 10:30 Pulse 78 MON; dwg 10:45 BP 139 / 86 (auto/); dwg 10:45 Pulse 81 MON; dwg 11:00 BP 138 / 84 (auto/); dwg 11:00 Pulse 80 MON; dwg 11:15 BP 147 / 85 (auto/); dwg 11:15 Pulse 74 MON; Pulse Ox 95% ; dwg 11:45 BP 154 / 88 (auto/); dwg 11:45 Pulse 70 MON; Pulse Ox 94% ; dwg 12:00 BP 147 / 87 (auto/); dwg 12:00 Pulse 71 MON; Pulse Ox 95% ; dwg 12:15 BP 146 / 86 (auto/); dwg 12:15 Pulse 69 MON; Pulse Ox 96% ; dwg 12:30 BP 149 / 83 (auto/); dwg 12:30 Pulse 70 MON; Pulse Ox 96% ; dwg 12:45 BP 148 / 78 (auto/); dwg 12:45 Pulse 77 MON; Pulse Ox 97% ; dwg 13:00 BP 137 / 74 (auto/); dwg 13:00 Pulse 71 MON; Pulse Ox 96% ; dwg 13:15 BP 134 / 79 (auto/); dwg 13:16 Pulse 68 MON; Pulse Ox 96% ; dwg 17:03 BP 143 / 78; Pulse 81; Resp 18; Temp 100.5(TE); Pulse Ox 96% on R/A; kcs 18:40 Temp 100.4(TE); kcs 20:00 BP 140 / 81; Pulse 67; Resp 16; Temp 96.5(T); Pulse Ox 95% ; Pain 5/10; mas 21:35 BP 136 / 90; Pulse 64; Resp 18; Temp 96.6(T); Pulse Ox 98% ; Pain 6/10; mas 07:53 Body Mass Index 20.98 (58.97 kg, 167.64 cm) dwg MDM: 07:54 Activated Charcoal (1g/kg) Suspension 50 grams PO once ordered. pc 07:54 Consult PFS/PSA/Staff Combat Information Center Officer: Patient's case requires discussion with on-call pc Psychiatrist ordered. 07:54 PSA/PFS to call Nursing Route Process Administrator, to enter patient data [place] if patient pc involuntarily admitted or transferred for SI or HI ordered. 07:54 Call Poison Control ordered. pc 07:54 Senior Production Planner/Pulse Ox/q 15 min VS ordered. pc 07:54 Confirm accurate psychiatric medication list and times of last dosage ordered. pc 07:54 Detain Pt Until Medically/PFS Cleared ordered. pc 07:54 IV Saline Lock ordered. pc 07:55 Acetaminophen Level Ordered. EDMS 07:56 Basic Metabolic Profile Ordered. EDMS 07:56 Complete Blood Count Ordered. EDMS 07:56 Drug Eval Toxicology ED Only Ordered. EDMS 07:56 Ethyl Alcohol (ethanol) Ordered. EDMS 07:56 HCG,Serum Qualitative Ordered. EDMS 07:56 Liver Profile Ordered. EDMS 07:56 Salicylate Level Ordered. EDMS 07:56 Thyroid Stimulating Hormone Ordered. EDMS 07:56 ECG WITH READING ER PHYS+CARDIAG ordered. EDMS 08:00 Differential diagnosis: depression, suicide attempt, polysubstance overdose. Plan: pc labs, EKG, Poison Control, PFS. Test interpretation: EKG. 08:14 Ondansetron 4 mg IVP once ordered. pc 09:34 Acetaminophen Level Reviewed. pc 09:34 Basic Metabolic Profile Reviewed. pc 09:34 Complete Blood Count Reviewed. pc 09:34 Drug Eval Toxicology ED Only Reviewed. pc 09:34 Liver Profile Reviewed. pc 09:34 Salicylate Level Reviewed. pc 09:34 Ethyl Alcohol (ethanol) Reviewed. pc 09:34 HCG,Serum Qualitative Reviewed. pc 09:34 Thyroid Stimulating Hormone Reviewed. pc 13:26 Financial registration complete. mm15 13:31 [facility] [place] Agreement was scanned into [employer] and attached to record. mm15 14:13 Consult PFS/PSA/Staff Combat Information Center Officer: Patient's case requires discussion with on-call ml4 Psychiatrist complete. 14:13 PSA/PFS to call Nursing Route Process Administrator, to enter patient data on [place] if patient ml4 involuntarily admitted or transferred for SI or HI complete. 15:09 The patient has been medically cleared for psychiatric evaluation, admission and/or pc transfer. [place] Safe Act reporting: The patient poses a significant risk to self or others, and PSA/PFS has notified the Nursing Route Process Administrator and he/she will complete the required enterprise data architect. Data reviewed: old medical records, vital signs, nurses notes, EKG(s), lab test results. Test interpretation: LAB - all labs as ordered have been reviewed, interpreted and considered in the overall management of the clinical presentation;. The patient has been re-examined and re-evaluated. There is no appreciated change of the patient's symptoms at this time. Disposition: The historical points, examination findings, and any diagnostic results supporting the provided diagnosis, were discussed with the patient or legal guardian. The need for further work-up and/or treatment in the hospital was explained. 16:23 REGULAR DIET PLASTIC MCDANIEL+DIET ordered. EDMS 17:13 Acetaminophen Tablet 650 mg PO once ordered. kcs 18:57 Admit to [facility]: ordered. EDKY 05/06 11:54 ECG/EKG was scanned into [employer] and attached to record. EC/16 08:00 Rate is 86 beats/min. Rhythm is regular, Normal Sinus Rhythm. QRS [place] is Normal. [place] pc interval is normal. QRS interval is normal. QT interval is normal. No Q waves. T waves are Normal. No ST changes noted. Clinical impression: Normal Sinus Rhythm. Administered Medications: 08:15 Drug: Activated Charcoal (1g/kg) 50 grams [activated charcoal 25 gram/120 mL oral mcp suspension (4800 drps)] Route: PO; 08:22 Drug: Ondansetron 4 mg [ondansetron HCl 2 mg/mL intravenous solution (2 mL)] Route: mcp IVP; Site: right antecubital; 17:17 Drug: Acetaminophen 650 mg [acetaminophen 325 mg tablet (2 tabs)] Route: PO; [place] Signatures: Dispatcher [employer] [facility] Vivek Waldron MD MD pc Sleeman, Kacey RN Jovani Zuniga RN RN Tracy Hernandez, Reg Reg gb Yarely, Kathi, PSA PSA ml4 Rico Xiao mm15 Alaina Hart LPN LPN slm Peters, Mary RN [facility] The chart was reviewed and I authenticate all verbal orders and agree with the evaluation and treatment provided.Attachments: 13:31 [facility] Payment Agreement mm15 05/06 11:54 ECG/EKG Chart Complete MTDD
[2016-05-08 06:17] VITALS: BP 97/52
[2016-05-08] MEDS ORDERED: VITAMIN D 50,000 UNITS CAPSULE (ERGOCALCIFEROL 1.25MG) PO SCH (09:00)
[2016-05-08] MEDS: OMEPRAZOLE 20 MG CAP PO SCH (09:10)
[2016-05-08] MEDS: SERTRALINE 100 MG TAB PO SCH (09:10)
[2016-05-08 10:44] VITALS: BP 105/64
[2016-05-08 18:00] VITALS: BP 108/76
[2016-05-08] MEDS: ALPRAZolam 0.5 MG TAB PO PRN (18:52)
[2016-05-08] MEDS: traZODone 50 MG TAB PO PRN (21:03)
[2016-05-09 06:44] VITALS: BP 104/70
[2016-05-09] MEDS: OMEPRAZOLE 20 MG CAP PO SCH (08:17)
[2016-05-09] MEDS: SERTRALINE 100 MG TAB PO SCH (08:18)
[2016-05-09] MEDS: BACTRIM 160MG/800MG DS TAB PO SCH ×2 (09:30→21:13)
[2016-05-09] MEDS: DOCUSATE SODIUM 100 MG CAP PO SCH ×2 (09:30→21:13)
--- NOTE | 2016-05-09 09:54 | IPNPDOC ---
Subjective Date Seen The patient was seen on 05/09/16. Subjective Chief Complaint/HPI The patient is a 30-year-old female admitted with a reason for visit of Unspecified Depressive D/O. Events since last encounter Requested to re evaluate related to UC result. Pt reports constipation and requests Colace. Skin: Denies: Breakdown, Lesions, Rash Pulmonary: Denies: Cough, Dyspnea Cardiovascular: Denies: Chest Pain, Lt Headedness, Orthopnea, Palpitations, Paroxysmal Noc. Dyspnea Genitourinary: Reports: Other Symptoms (decreased UO. ), Denies: Dysuria, Frequency, Incontinence, Retention Objective Physical Examination General Exam: Positive: Alert Eye Exam: Positive: PERRLA Chest Exam: Positive: Clear to auscultation, Normal air movement Heart Exam: Positive: Normal S1, Normal S2, Rate Normal, Regular Rhythm, Negative: Murmurs, Rubs Abdomen Exam: Positive: Normal bowel sounds, Soft, Negative: Hepatospenomegaly, Tenderness Skin Exam: Positive: Nl turgor and temperature Neuro Exam: Positive: Normal Gait Assessment /Plan Problems (1) UTI (urinary tract infection) Status: Acute Problem Text: * UC E Coli >100,000CFU. * Add Bactrim DS BID x 7 days. * SCr WNL. * Monitor. (2) Constipation Status: Acute Problem Text: * Colace 100mg BIS * MOM as needed. Plan/VTE VTE Prophylaxis Ordered?: No (ambulatory. ) VS, I&O, 24H, Fishbone Vital Signs/I&O Vital Signs Date Time Temp Pulse Resp B/P Pulse Ox O2 Delivery O2 Flow Rate FiO2 05/09/16 06:44 97.9 68 18 104/70 05/05/16 21:45 98 Room Air Laboratory Data Microbiology Microbiology 05/06/16 Urine Culture - Final, Complete Escherichia Coli Sherry Talavera May 09, 2016 09:53
--- NOTE | 2016-05-09 10:05 | IPN ---
DATE: 05/07/2016 SUBJECTIVE: "I'm feeling a little better." OBJECTIVE: Patient is improving slowly. Patient is motivated for treatment. Denies side effect from medication. Is sleeping well with the help of trazodone. No evidence of psychotic symptoms. MENTAL STATUS EXAMINATION: Patient is dressed in [facility]. Patient is cooperative during the exam, has fair eye contact. Speech is slow and monotone. Mood is depressed and anxious. Affect is congruent with mood. No delusions or hallucinations. Memory is fair. Patient is fully oriented. Associations are intact. Thinking is logical. Thought content is appropriate. Patient is able to contract for safety during the interview. Denies suicidal or homicidal ideation. Insight and judgment is limited. ASSESSMENT: 1. Depression. 2. Overdose. PLAN: 1. Continue with Zoloft 100 mg by mouth every morning. 2. Continue with Xanax as needed for anxiety. 3. Continue with trazodone 50 mg by mouth nightly as needed for insomnia. 4. Continue medication management and individual and group therapy.
--- NOTE | 2016-05-09 11:40 | IPN ---
DATE: 05/08/2016 SUBJECTIVE: "I'm sleeping better now with the help of the medication." OBJECTIVE: Patient reports some improvement. Although, she continues depressed with some degree of psychomotor retardation and restricted facial expression. No evidence of psychotic symptoms. Denies side effect from the medication. MENTAL STATUS EXAMINATION: Patient is dressed in [facility]. Patient is cooperative during exam. Has fair eye contact. Speech is slow and monotone. Mood is depressed and anxious. Affect is restricted. No delusions or hallucinations. Memory is intact. Patient is fully oriented. Associations are intact. Thinking is logical. Thought content is appropriate. Patient is able to contract for safety in our unit and denies suicidal or homicidal ideation during the interview. Insight and judgment is limited. ASSESSMENT: 1. Major depressive disorder. 2. Suicidal ideation/status post overdose prior to admission. PLAN: 1. Continue with Zoloft 100 mg by mouth every morning. 2. Continue with Xanax 0.5 mg by mouth twice a day as needed. 3. Continue with trazodone 50 mg by mouth nightly as needed for insomnia.
--- NOTE | 2016-05-09 13:21 | IPNPDOC ---
[facility] Progress Note Progress Note DATE OF SERVICE: 05/09/16 SUBJECTIVE: Patient reports speaking with her girls over the weekend. She reports regret for her overdose. Patient has been attending groups. Patient is encouraged to continue attending groups and to participate in them. Patient reports sleep and appetite are within normal limits. Patient is med compliant. She denies medication side effects. Patient has displayed no bizarre or inappropriate behaviors nor has she made any inappropriate or bizarre statements. Patient denies SI and HI. Patient denies AH and VH. OBJECTIVE: VITAL SIGNS: See below. NEW TEST RESULTS: See below. CURRENT MEDICATIONS: See below. MENTAL STATUS EXAMINATION: Patient is dressed in [facility]. Patient is Calm, cooperative during exam. She has fair eye contact. Speech is slow but spontaneous Mood is depressed and anxious. Affect is restricted. No delusions or hallucinations. Memory is intact. Patient is fully oriented. Associations are intact. Thinking is linear and goal-directed. Thought content is worry about her girls. Patient is able to contract for safety in our unit and denies suicidal or homicidal ideation during the interview. Insight and judgment is limited. ASSESSMENT: 1. Major depressive disorder. 2. Suicidal ideation/status post overdose prior to admission. PLAN: 1. Continue with Zoloft 100 mg by mouth every morning. 2. Continue with Xanax 0.5 mg by mouth twice a day as needed. 3. Continue with Trazodone 50 mg by mouth nightly as needed for insomnia. TIME SPENT: 30 minutes. Vital Signs Vital Signs Date Time Temp Pulse Resp B/P Pulse Ox O2 Delivery O2 Flow Rate FiO2 05/09/16 06:44 97.9 68 18 104/70 05/05/16 21:45 98 Room Air Current Medications Current Medications Acetaminophen (Tylenol Tab) 650 mg Q6HP PRN PO HEADACHE or DISCOMFORT Last administered on 05/06/16 17:38; Start 05/05/16 at 23:15; Stop 06/04/16 at 23:14 Al Hydrox/Mg Hydrox/Simethicone (Mylanta) 30 ml Q4HP PRN PO HEARTBURN/ INDIGESTION Last administered on 05/06/16 10:43; Start 05/05/16 at 23:15; Stop 06/04/16 at 23:14 Alprazolam (Xanax) 0.5 mg BIDP PRN PO ANXIETY Last administered on 05/08/16 18 :52; Start 05/06/16 at 18:15; Stop 05/13/16 at 18:14 Docusate Sodium (Colace) 100 mg BID PO Last administered on 05/09/16 09:30; Start 05/09/16 at 09:00; Stop 06/08/16 at 08:59 Home Med (Med Rec Complete!) ASDIRECTED XX ; Start 05/05/16 at 15:45; Stop at 15:45; Status DC Magnesium Hydroxide (Milk Of Magnesia) 30 ml DAILYPRN PRN PO CONSTIPATION; Start 05/05/16 at 23:15; Stop 06/04/16 at 23:14 Omeprazole (PriLOSEC) 40 mg DAILY PO Last administered on 05/09/16 08:17; Start 05/06/16 at 09:00; Stop 06/05/16 at 08:59 Sertraline HCl (Zoloft) 100 mg QAM PO ; Start 05/06/16 at 09:00; Stop 06/05/16 at 08:59; Status Cancel Sertraline HCl (Zoloft) 100 mg QAM PO Last administered on 05/09/16 08:18; Start 05/07/16 at 09:00; Stop 06/06/16 at 08:59 Trazodone HCl (Desyrel) 50 mg QHSP PRN PO INSOMNIA Last administered on 21:03; Start 05/05/16 at 23:15; Stop 06/04/16 at 23:14 Trimethoprim/ Sulfamethoxazole (Bactrim Ds, Septra Ds 160mg/ 800mg) 1 tab BID PO Last administered on 05/09/16 09:30; Start 05/09/16 at 09:00; Stop at 23:59 Vitamin D (Drisdol) 50,000 units De Guzman@09 PO Last administered on 05/08/16 09:10 ; Start 05/08/16 at 09:00; Stop 06/07/16 at 08:59 Allergies Coded Allergies: No Known Allergies (Verified Allergy, Unknown, 11/01/06) ELÍAS VILLEGAS MD May 09, 2016 13:20 ELÍAS VILLEGAS MD May 09, 2016 13:20
[2016-05-09 18:00] VITALS: BP 112/65
[2016-05-09] MEDS: traZODone 50 MG TAB PO PRN (21:13)
[2016-05-09] MEDS: ALPRAZolam 0.5 MG TAB PO PRN (21:14)
[2016-05-10 06:36] VITALS: BP 162/88
[2016-05-10] MEDS: DOCUSATE SODIUM 100 MG CAP PO SCH ×2 (08:36→21:06)
[2016-05-10] MEDS: SERTRALINE 100 MG TAB PO SCH (08:36)
[2016-05-10] MEDS: BACTRIM 160MG/800MG DS TAB PO SCH ×2 (08:36→21:06)
[2016-05-10] MEDS: OMEPRAZOLE 20 MG CAP PO SCH (08:36)
[2016-05-10 18:00] VITALS: BP 128/68
[2016-05-10] MEDS: ALPRAZolam 0.5 MG TAB PO PRN (21:06)
[2016-05-10] MEDS: traZODone 50 MG TAB PO PRN (21:09)
[2016-05-11 06:42] VITALS: BP 112/62
[2016-05-11] MEDS: OMEPRAZOLE 20 MG CAP PO SCH (08:25)
[2016-05-11] MEDS: SERTRALINE 100 MG TAB PO SCH (08:25)
[2016-05-11] MEDS: DOCUSATE SODIUM 100 MG CAP PO SCH (08:25)
[2016-05-11] MEDS: BACTRIM 160MG/800MG DS TAB PO SCH (08:25)
[2016-05-11] MEDS ORDERED: SMZ-800T PO (08:44)
[2016-05-11] MEDS ORDERED: SERT-138 PO (11:53)
[2016-05-11] MEDS ORDERED: TRAZO50TA PO (11:55)
[2016-05-11] MEDS ORDERED: XANA0.5T PO (11:56)
--- NOTE | 2016-05-11 12:10 | IPNPDOC ---
[facility] Progress Note Progress Note DATE OF SERVICE: 05/10/16 TIME SPENT: minutes. Vital Signs Vital Signs Date Time Temp Pulse Resp B/P Pulse Ox O2 Delivery O2 Flow Rate FiO2 05/11/16 06:42 97.3 87 20 112/62 05/05/16 21:45 98 Room Air Current Medications Current Medications Acetaminophen (Tylenol Tab) 650 mg Q6HP PRN PO HEADACHE or DISCOMFORT Last administered on 05/06/16 17:38; Start 05/05/16 at 23:15; Stop 06/04/16 at 23:14 Al Hydrox/Mg Hydrox/Simethicone (Mylanta) 30 ml Q4HP PRN PO HEARTBURN/ INDIGESTION Last administered on 05/06/16 10:43; Start 05/05/16 at 23:15; Stop 06/04/16 at 23:14 Alprazolam (Xanax) 0.5 mg BIDP PRN PO ANXIETY Last administered on 05/10/16 21 :06; Start 05/06/16 at 18:15; Stop 05/13/16 at 18:14 Docusate Sodium (Colace) 100 mg BID PO Last administered on 05/11/16 08:25; Start 05/09/16 at 09:00; Stop 06/08/16 at 08:59 Home Med (Med Rec Complete!) ASDIRECTED XX ; Start 05/05/16 at 15:45; Stop at 15:45; Status DC Magnesium Hydroxide (Milk Of Magnesia) 30 ml DAILYPRN PRN PO CONSTIPATION; Start 05/05/16 at 23:15; Stop 06/04/16 at 23:14 Omeprazole (PriLOSEC) 40 mg DAILY PO Last administered on 05/11/16 08:25; Start 05/06/16 at 09:00; Stop 06/05/16 at 08:59 Sertraline HCl (Zoloft) 100 mg QAM PO ; Start 05/06/16 at 09:00; Stop 06/05/16 at 08:59; Status Cancel Sertraline HCl (Zoloft) 100 mg QAM PO Last administered on 05/11/16 08:25; Start 05/07/16 at 09:00; Stop 06/06/16 at 08:59 Trazodone HCl (Desyrel) 50 mg QHSP PRN PO INSOMNIA Last administered on 21:09; Start 05/05/16 at 23:15; Stop 06/04/16 at 23:14 Trimethoprim/ Sulfamethoxazole (Bactrim Ds, Septra Ds 160mg/ 800mg) 1 tab BID PO Last administered on 05/11/16 08:25; Start 05/09/16 at 09:00; Stop at 23:59 Vitamin D (Drisdol) 50,000 units De Guzman@09 PO Last administered on 05/08/16 09:10 ; Start 05/08/16 at 09:00; Stop 06/07/16 at 08:59 Allergies Coded Allergies: No Known Allergies (Verified Allergy, Unknown, 11/01/06) ELÍAS VILLEGAS MD May 11, 2016 12:10
--- NOTE | 2016-05-11 12:33 | DS.PDOC ---
[facility] Discharge Summary Discharge Summary DATE OF ADMISSION: May 05, 2016 at 21:48 DATE OF DISCHARGE: 05/11/16 DISCHARGE DIAGNOSES: 1. . 2. . 3. . REASON FOR ADMISSION: CONSULTANTS INVOLVED: TREATMENT AND PROGRESS ON THE UNIT : . HOSPITAL COURSE: DISCHARGE ASSESSMENT: MENTAL STATUS EXAMINATION ON DISCHARGE: Patient is a -year old female, who is [pleasant, cooperative, well kempt], [tall , overweight, thin, elderly, obese, frail build]. Speech is [pressured, tangential, circumstantial, flight of ideas, [normal in rate, volume, and articulation, and is coherent and spontaneous]. Language skills are . Thought processes including: [clear, Not goal-directed or Goal directed]. Thought content: [irrational, logical, illogical, tangential, paranoid]. Abstract reasoning, and computation: . Description of associations: [loose, tangential, circumstantial, intact]. Description of abnormal or psychotic thoughts: [hallucinations, delusions, preoccupation with violence, homicidal or suicidal ideation, and obsessions]. Judgment: [fair, good, very limited, poor,]. Insight: [very limited, good, fair. poor]. Orientation to [time, place and person]. Recent and remote memory: [Immediate, short-term and long-term memory is intact] . Attention span and concentration: [Poor, good, fair]. Language: [Normal]. Fund of knowledge: [adequate, intact, poor, fair, good]. Mood: [irrational, elated, irritable, distracted, depressed, anxious, restricted , neutral, fully communicative]. Affect: [appropriate, reactive, flat, constricted, animated, irrational, expansive, restricted, depressed, anxious, agitated, hypomania, lability]. MEDICATIONS ON DISCHARGE: - for . - for . - for . PLAN/FOLLOWUP ARRANGEMENTS: . The amount of time spent in the coordination of care for this patient was approximately minutes. Vital Signs Vital Sign - Last 24 Hours 05/10/16 05/11/16 18:00 06:42 Temp 98.1 97.3 Pulse 71 87 Resp 16 20 B/P 128/68 112/62 Laboratory Data Microbiology Microbiology 05/06/16 Urine Culture - Final, Complete Escherichia Coli Medications Scheduled Omeprazole (Omeprazole) 40 Mg Cap 40 MG PO DAILY (Reported) Sertraline HCl (Sertraline HCl) 100 Mg Tab #7 100 MG PO QAM DEPRESSION Sertraline Hcl (Sertraline HCl) 50 Mg Tab 50 MG PO DAILY (Reported) Trimethoprim/Sulfamethoxazole (Smz-Tmp Ds 800-160 mg) 1 Tab Tab #8 1 TAB PO BID infection Vitamin D (Drisdol) 50,000 Unit Cap 50,000 UNIT PO QWEEK (Reported) TAKES ON SUNDAYS Scheduled PRN Alprazolam (Alprazolam) 0.5 Mg Tab 0.5 MG PO TID PRN PRN ANXIETY (Reported) Alprazolam (Xanax) 0.5 Mg Tab #7 0.5 MG PO DAILYPRN PRN PRN ANXIETY/AGITATION Trazodone HCl (Trazodone HCl) 50 Mg Tab #7 50 MG PO QHSP PRN PRN INSOMNIA Allergies Coded Allergies: No Known Allergies (Verified Allergy, Unknown, 11/01/06) ELÍAS VILLEGAS MD May 11, 2016 12:33
[2016-05-11] MEDS ORDERED: COLA100C PO (12:40)
== END 2016-05-11 13:30 | disposition home or self-care (01) | DRG 753 ==
LOC: M ED 07:38 → M PSY 21:48
PROVIDERS: ADMIT Psychiatry & Neurology Psychiatry; ATTEND Psychiatry & Neurology Psychiatry
DX: F31.60 Bipolar disorder, current episode mixed, unspecified (principal); F10.20 Alcohol dependence, uncomplicated; E87.6 Hypokalemia; K21.9 Gastro-esophageal reflux disease without esophagitis; F17.200 Nicotine dependence, unspecified, uncomplicated; K59.00 Constipation, unspecified

== ENCOUNTER → 2016-05-12 | Outpatient (CLI) | payer OTHER ==
[~2016-05-12] MED LIST: ALPR0.5T3 PO; COLA100C PO; DRIS50002 PO; OMEP40CA2 PO; SERT-138 PO; SERT-141 PO; SMZ-800T PO; TRAZO50TA PO; XANA0.5T PO
== END ==
LOC: M OUTALCOH 08:26
PROVIDERS: ATTEND Psychiatry & Neurology Psychiatry
DX: Z13.9 Encounter for screening, unspecified (principal); F10.20 Alcohol dependence, uncomplicated

== ENCOUNTER → 2016-06-17 | Outpatient (RCR) | payer OTHER ==
[~2016-06-17] MED LIST changes: -SERT-141 PO; +SERT50TA PO
== END ==
LOC: M OUTALCOH 05-20 09:46
PROVIDERS: ATTEND Psychiatry & Neurology Psychiatry
DX: F10.20 Alcohol dependence, uncomplicated (principal); F17.200 Nicotine dependence, unspecified, uncomplicated

== ENCOUNTER 2016-06-30 14:04 | Emergency (ER) | payer OTHER ==
[~2016-06-30] VITALS: Ht 160 cm; Wt 56.7 kg
[~2016-06-30 14:04] MED LIST changes: -COLA100C PO; +COLA100C3 PO
[2016-06-30] MEDS ORDERED: LAMO100T PO (14:14)
[2016-06-30] MEDS ORDERED: LITH300C PO (14:14)
[2016-06-30] MEDS ORDERED: LATU20TA PO (14:14)
[2016-06-30] MEDS ORDERED: VIVI380I IM (14:14)
[2016-06-30] MEDS ORDERED: NS 1,000 ML IV ONE (15:00)
[2016-06-30] MEDS ORDERED: DICYCLOMINE INJ 20MG/2ML (J0500) IM ONE (15:15)
[2016-06-30] MEDS ORDERED: METOCLOPRAMIDE INJ 10MG/2ML VIAL (J2765) IV ONE (15:15)
[2016-06-30 16:05] LABS: BASO # 0.1 K/mm3 (0.0-0.2); BASO % 1.5 % (0.0-1.0); EOS # 0.2 K/mm3 (0.0-0.50); EOS % 5.2 % (0.0-3.0); LARGE UNSTAINED CELL # 0.1 K/mm3 (0.0-0.4); LARGE UNSTAINED CELL % 1.7 % (0.0-4.0); MEAN CORPUSCULAR HEMOGLOBIN 29.3 pg (27.0-33.0); MEAN CORPUSCULAR VOLUME 88.9 fl (80.0-96.0); MONO # 0.3 K/mm3 (0.0-0.8); MONO % 6.2 % (0.0-5.0); NEUTROPHILS % 65.4 % (36.0-66.0); PLATELET COUNT, AUTOMATED 182 k/mm3 (150-450); RED CELL DISTRIBUTION WIDTH 12.4 % (11.5-14.5); WHITE BLOOD COUNT 4.6 K/mm3 (4.0-10.0)
[2016-06-30 16:17] LABS: ALBUMIN 3.7 GM/DL (3.2-5.2); ALBUMIN/GLOBULIN RATIO 1.48 (1.00-1.93); ALKALINE PHOSPHATASE 77 U/L (45-117); ALT/SGPT 24 U/L (12-78); AMYLASE 38 U/L (25-115); ANION GAP 5 MEQ/L (8-16); AST/SGOT 11 U/L (15-37); BILIRUBIN,DIRECT 0.1 MG/DL (0.0-0.2); BILIRUBIN,TOTAL 0.4 MG/DL (0.2-1.0); BLOOD UREA NITROGEN 18 MG/DL (7-18); CALCIUM LEVEL 8.8 MG/DL (8.5-10.1); CARBON DIOXIDE LEVEL 29 MEQ/L (21-32); CHLORIDE LEVEL 106 MEQ/L (98-107); CREATININE FOR GFR 0.88 MG/DL (0.55-1.02); GLOMERULAR FILTRATION RATE > 60.0 (>60); GLUCOSE, FASTING 89 MG/DL (70-105); POTASSIUM SERUM 4.3 MEQ/L (3.5-5.1); SODIUM LEVEL 140 MEQ/L (136-145); TOTAL PROTEIN 6.2 GM/DL (6.4-8.2)
[2016-06-30] MEDS ORDERED: SIME1CAP PO (17:52)
--- NOTE | 2016-06-30 17:53 | REP ---
ABDOMINAL SERIES: Supine and erect views of the abdomen demonstrate no free air and no compelling evidence for small bowel obstruction. There is moderate fecal retention. Metallic clips and sutures are seen in the upper abdomen. No abnormal calcifications are seen. An accompanying view of the chest demonstrates no acute infiltrate. Heart is normal in size. IMPRESSION: No free air and no compelling evidence for small bowel obstruction. Moderate fecal retention. Signed by Jovani Tran MD 07/01/2016 03:20 P
[2016-06-30 18:00] VITALS: BP 128/70
== END 2016-06-30 18:02 | disposition home or self-care (01) ==
LOC: M ED 15:40
DX: K56.41 Fecal impaction (principal); R14.1 Gas pain; Z98.84 Bariatric surgery status; F41.9 Anxiety disorder, unspecified; F33.9 Major depressive disorder, recurrent, unspecified; Z79.899 Other long term (current) drug therapy; F17.210 Nicotine dependence, cigarettes, uncomplicated
CPT/HCPCS: 74022; 80048; 80076; 80178; 81025; 82150; 83605; 83690; 85025; 96372; 96374; 99283; J0500; J2765

== ENCOUNTER → 2016-07-01 | Outpatient (CLI) | payer OTHER ==
[~2016-07-01] MED LIST changes: +LAMO100T PO; +LATU20TA PO; +LITH300C PO; +SIME1CAP PO; +VIVI380I IM
[2016-07-01 13:25] LABS: MEAN CORPUSCULAR HEMOGLOBIN 29.8 pg (27.0-33.0); MEAN CORPUSCULAR HGB CONC 33.3 g/dl (32.0-36.5); MEAN CORPUSCULAR VOLUME 89.5 fl (80.0-96.0); RED CELL DISTRIBUTION WIDTH 12.3 % (11.5-14.5); WHITE BLOOD COUNT 4.4 K/mm3 (4.0-10.0)
[2016-07-01 13:39] LABS: LITHIUM LEVEL 0.31 MEQ/L (0.60-1.20)
== END ==
LOC: M LAB 12:41
PROVIDERS: ATTEND Psychiatry & Neurology Psychiatry
DX: Z51.81 Encounter for therapeutic drug level monitoring (principal); Z79.899 Other long term (current) drug therapy

== ENCOUNTER 2016-07-15 08:45 | Outpatient (RCR) | payer OTHER | END 2016-07-17 | LOC: M OUTALCOH 08:45 | PROVIDERS: ATTEND Psychiatry & Neurology Psychiatry | DX: Z13.9 Encounter for screening, unspecified (principal); F10.20 Alcohol dependence, uncomplicated; F17.200 Nicotine dependence, unspecified, uncomplicated ==

== ENCOUNTER → 2016-08-16 | Outpatient (CLI) | payer OTHER | LOC: M LAB 11:42 | PROVIDERS: ATTEND Psychiatry & Neurology Psychiatry | DX: Z79.899 Other long term (current) drug therapy (principal) ==

== ENCOUNTER → 2016-08-17 | Outpatient (RCR) | payer OTHER | LOC: M OUTALCOH 07-18 13:41 | PROVIDERS: ATTEND Psychiatry & Neurology Psychiatry | DX: Z13.9 Encounter for screening, unspecified (principal); F10.20 Alcohol dependence, uncomplicated; F17.200 Nicotine dependence, unspecified, uncomplicated ==

== ENCOUNTER → 2016-09-16 | Outpatient (RCR) | payer MEDICAID ==
[~2016-09-16] MED LIST changes: +CHAN1PAK11 PO; -COLA100C3 PO; +COLA100C5 PO; +HYDR-3363 PO; +LATU40TA PO; -SMZ-800T PO; +SULF1TAB23 PO
== END ==
LOC: M OUTALCOH 08-22 10:59
PROVIDERS: ATTEND Psychiatry & Neurology Psychiatry
DX: Z13.9 Encounter for screening, unspecified (principal); F10.20 Alcohol dependence, uncomplicated; F17.200 Nicotine dependence, unspecified, uncomplicated

== ENCOUNTER 2016-10-14 14:00 | Outpatient (RCR) | payer MEDICAID ==
[~2016-10-14 14:00] MED LIST changes: -CHAN1PAK11 PO; -HYDR-3363 PO; -LATU40TA PO
== END 2016-10-17 ==
LOC: M OUTALCOH 14:00
PROVIDERS: ATTEND Psychiatry & Neurology Psychiatry
DX: Z13.9 Encounter for screening, unspecified (principal); F10.20 Alcohol dependence, uncomplicated; F17.200 Nicotine dependence, unspecified, uncomplicated

== ENCOUNTER 2016-11-16 11:00 | Outpatient (RCR) | payer MEDICAID | END 2016-11-17 | LOC: M OUTALCOH 11:00 | PROVIDERS: ATTEND Psychiatry & Neurology Psychiatry | DX: Z13.9 Encounter for screening, unspecified (principal); F10.20 Alcohol dependence, uncomplicated; F17.200 Nicotine dependence, unspecified, uncomplicated ==

== ENCOUNTER → 2016-11-29 | Outpatient (REF) | payer MEDICAID ==
[~2016-11-29] MED LIST changes: +CHAN1PAK11 PO; +HYDR-3363 PO; +LATU40TA PO
[2016-11-29 12:06] LABS: CONTROL LINE HCG INT CTR LINE PRESENT
[2016-11-29 12:22] LABS: BASO # 0.1 K/mm3 (0.0-0.2); EOS # 0.2 K/mm3 (0.0-0.50); LARGE UNSTAINED CELL # 0.1 K/mm3 (0.0-0.4); LYMPH # 1.2 K/mm3 (1.5-4.5); LYMPH % 37.5 % (24.0-44.0); MEAN CORPUSCULAR HEMOGLOBIN 29.7 pg (27.0-33.0); MEAN CORPUSCULAR HGB CONC 33.2 g/dl (32.0-36.5); MEAN CORPUSCULAR VOLUME 89.4 fl (80.0-96.0); MONO # 0.2 K/mm3 (0.0-0.8); MONO % 6.6 % (0.0-5.0); NEUTROPHILS # 1.4 K/mm3 (1.8-7.7); NEUTROPHILS % 45.9 % (36.0-66.0); PLATELET COUNT, AUTOMATED 156 k/mm3 (150-450); RED CELL DISTRIBUTION WIDTH 11.9 % (11.5-14.5)
[2016-11-29 12:27] LABS: ALBUMIN 3.6 GM/DL (3.2-5.2); ALBUMIN/GLOBULIN RATIO 1.57 (1.00-1.93); ALKALINE PHOSPHATASE 65 U/L (45-117); ALT/SGPT 19 U/L (12-78); ANION GAP 7 MEQ/L (8-16); AST/SGOT 12 U/L (15-37); BILIRUBIN,TOTAL 0.4 MG/DL (0.2-1.0); BLOOD UREA NITROGEN 18 MG/DL (7-18); CARBON DIOXIDE LEVEL 28 MEQ/L (21-32); CHLORIDE LEVEL 109 MEQ/L (98-107); CREATININE FOR GFR 0.64 MG/DL (0.55-1.02); FREE T4 0.93 NG/DL (0.76-1.46); GLOMERULAR FILTRATION RATE > 60.0 (>60); GLUCOSE, FASTING 71 MG/DL (70-105); POTASSIUM SERUM 3.9 MEQ/L (3.5-5.1); SODIUM LEVEL 144 MEQ/L (136-145); TOTAL PROTEIN 5.9 GM/DL (6.4-8.2)
== END ==
LOC: M LAB REF 11:44
PROVIDERS: ATTEND Family Medicine Addiction Medicine
DX: N91.0 Primary amenorrhea (principal)

== ENCOUNTER 2016-12-16 11:00 | Outpatient (RCR) | payer MEDICAID ==
[~2016-12-16 11:00] MED LIST changes: -CHAN1PAK11 PO; -HYDR-3363 PO; -LATU40TA PO
== END 2016-12-17 ==
LOC: M OUTALCOH 11:00
PROVIDERS: ATTEND Psychiatry & Neurology Psychiatry
DX: F10.20 Alcohol dependence, uncomplicated (principal); F17.200 Nicotine dependence, unspecified, uncomplicated

== ENCOUNTER → 2016-12-20 | Outpatient (CLI) | payer OTHER ==
[~2016-12-20] MED LIST changes: +CHAN1PAK11 PO; +HYDR-3363 PO; +LATU40TA PO
[2016-12-20 10:44] LABS: MEAN CORPUSCULAR HEMOGLOBIN 28.9 pg (27.0-33.0); MEAN CORPUSCULAR VOLUME 87.6 fl (80.0-96.0); RED CELL DISTRIBUTION WIDTH 11.9 % (11.5-14.5); WHITE BLOOD COUNT 4.1 10^3/uL (4.0-10.0)
[2016-12-20 11:20] LABS: VITAMIN B12 LEVEL 299 PG/ML (247-911)
[2016-12-20 11:25] LABS: ALKALINE PHOSPHATASE 65 U/L (45-117); ALT/SGPT 21 U/L (12-78); ANION GAP 1 MEQ/L (8-16); AST/SGOT 12 U/L (15-37); BILIRUBIN,TOTAL 0.4 MG/DL (0.2-1.0); BLOOD UREA NITROGEN 14 MG/DL (7-18); CALCIUM LEVEL 8.7 MG/DL (8.5-10.1); CARBON DIOXIDE LEVEL 33 MEQ/L (21-32); CHLORIDE LEVEL 106 MEQ/L (98-107); CHOLESTEROL LEVEL 118 MG/DL (<200); CREATININE FOR GFR 0.62 MG/DL (0.55-1.02); GLOMERULAR FILTRATION RATE > 60.0 (>60); GLUCOSE, FASTING 77 MG/DL (70-105); POTASSIUM SERUM 4.5 MEQ/L (3.5-5.1); SODIUM LEVEL 140 MEQ/L (136-145); TRIGLYCERIDES LEVEL 59 MG/DL (<150)
[2016-12-20 11:26] LABS: ALBUMIN 3.5 GM/DL (3.2-5.2); ALBUMIN/GLOBULIN RATIO 1.59 (1.00-1.93); FERRITIN 22 NG/ML (8-252); PERCENT SATURATION 13.9 % (13.2-45.0); T UPTAKE 31 % (30-39); THYROXINE (T4) 9.1 UG/DL (4.5-12.0); TOTAL IRON BINDING CAPACITY 287 UG/DL (250-450); TOTAL PROTEIN 5.7 GM/DL (6.4-8.2)
== END ==
LOC: M LAB 10:11
PROVIDERS: ATTEND Registered Nurse
DX: K91.2 Postsurgical malabsorption, not elsewhere classified (principal)

== ENCOUNTER 2017-01-14 11:47 | Emergency (ER) | payer MEDICAID, OTHER ==
[~2017-01-14] VITALS: Ht 160 cm; Wt 56.8 kg
[2017-01-14 11:47] VITALS: BP 128/81
[~2017-01-14 11:47] MED LIST changes: -CHAN1PAK11 PO; -HYDR-3363 PO; -LATU40TA PO
[2017-01-14] MEDS ORDERED: CHAN1PAK11 PO (11:58)
[2017-01-14] MEDS ORDERED: LITH300C PO (11:58)
[2017-01-14] MEDS ORDERED: LATU40TA PO (11:58)
[2017-01-14] MEDS ORDERED: HYDR-3363 PO (12:54)
[2017-01-14] MEDS ORDERED: hydrOXYzine 25 MG TAB PO ONE (13:00)
== END 2017-01-14 13:11 | disposition home or self-care (01) ==
LOC: M ED 11:47
DX: F41.9 Anxiety disorder, unspecified (principal); F33.9 Major depressive disorder, recurrent, unspecified; Z98.84 Bariatric surgery status; Z79.899 Other long term (current) drug therapy; F17.210 Nicotine dependence, cigarettes, uncomplicated

== ENCOUNTER 2017-02-14 10:00 | Outpatient (RCR) | payer MEDICAID ==
[~2017-02-14 10:00] MED LIST changes: +CHAN1PAK11 PO; +HYDR-3363 PO; +LATU40TA PO
== END 2017-02-16 ==
LOC: M OUTALCOH 10:00
PROVIDERS: ATTEND Psychiatry & Neurology Psychiatry
DX: F10.20 Alcohol dependence, uncomplicated (principal); F17.200 Nicotine dependence, unspecified, uncomplicated

== ENCOUNTER 2017-02-17 10:56 | Outpatient (RCR) | payer MEDICAID | END 2017-03-19 | LOC: M OUTALCOH 02-20 16:00 | DX: F10.20 Alcohol dependence, uncomplicated (principal); F17.200 Nicotine dependence, unspecified, uncomplicated ==

== ENCOUNTER 2017-03-21 14:10 | Outpatient (RCR) | payer MEDICAID | END 2017-04-19 | LOC: M OUTALCOH 14:10 | DX: F10.20 Alcohol dependence, uncomplicated (principal); F17.200 Nicotine dependence, unspecified, uncomplicated ==

== ENCOUNTER → 2017-04-28 | Outpatient (CLI) | payer OTHER ==
[2017-04-28 10:00] LABS: ESTIMATED AVERAGE GLUCOSE 94 MG/DL (60-110); HEMOGLOBIN A1c 4.9 %
[2017-04-28 10:15] LABS: ALBUMIN 3.7 GM/DL (3.2-5.2); ALBUMIN/GLOBULIN RATIO 1.61 (1.00-1.93); ALKALINE PHOSPHATASE 66 U/L (45-117); ALT/SGPT 20 U/L (12-78); ANION GAP 3 MEQ/L (8-16); AST/SGOT 10 U/L (7-37); BILIRUBIN,TOTAL 0.4 MG/DL (0.2-1.0); BLOOD UREA NITROGEN 15 MG/DL (7-18); CALCIUM LEVEL 8.6 MG/DL (8.5-10.1); CARBON DIOXIDE LEVEL 31 MEQ/L (21-32); CHLORIDE LEVEL 108 MEQ/L (98-107); CHOLESTEROL LEVEL 138 MG/DL (<200); CREATININE FOR GFR 0.79 MG/DL (0.55-1.30); GLOMERULAR FILTRATION RATE > 60.0 (>60); GLUCOSE, FASTING 81 MG/DL (70-100); HDL CHOLESTEROL 60 MG/DL (>40); LDL CHOLESTEROL 66.4 MG/DL (<100); NON-HDL-C 78 MG/DL; POTASSIUM SERUM 4.3 MEQ/L (3.5-5.1); SODIUM LEVEL 142 MEQ/L (136-145); TRIGLYCERIDES LEVEL 58 MG/DL (<150)
[2017-04-28 10:16] LABS: LITHIUM LEVEL 0.85 MEQ/L (0.60-1.20)
== END ==
LOC: M LAB 08:49
DX: Z51.81 Encounter for therapeutic drug level monitoring (principal); Z79.899 Other long term (current) drug therapy
CPT/HCPCS: 80178

== ENCOUNTER 2017-05-02 14:22 | Outpatient (RCR) | payer MEDICAID | END 2017-05-17 | LOC: M OUTALCOH 14:22 | DX: F10.20 Alcohol dependence, uncomplicated (principal); F17.200 Nicotine dependence, unspecified, uncomplicated ==

== ENCOUNTER → 2017-05-22 | Outpatient (REF) | payer MEDICAID ==
[2017-05-22 15:07] LABS: URIC ACID 2.9 MG/DL (2.6-6.0)
[2017-05-22 15:07] LABS: RHEUMATOID FACTOR QUANT < 10.0 IU/ML (0-15.0)
[2017-05-23 14:14] LABS: ANTINUCLEAR ANTIBODIES DIRECT Negative (Negative)
== END ==
LOC: M LAB REF 14:28
DX: M25.50 Pain in unspecified joint (principal)

== ENCOUNTER 2017-06-09 08:00 | Outpatient (RCR) | payer MEDICAID | END 2017-06-17 | LOC: M OUTALCOH 08:00 | DX: F10.20 Alcohol dependence, uncomplicated (principal); F17.200 Nicotine dependence, unspecified, uncomplicated ==

== ENCOUNTER 2017-06-13 11:44 | Emergency (ER) | payer OTHER, MEDICAID | END 2017-06-13 16:08 | disposition left against medical advice (07) | LOC: M ED 16:08 | DX: M79.641 Pain in right hand (principal); M25.569 Pain in unspecified knee; Z53.21 Procedure and treatment not carried out due to patient leaving prior to being seen by health care provider ==

== ENCOUNTER → 2017-06-22 | Outpatient (REF) | payer OTHER ==
[2017-06-22 18:00] LABS: C REACTIVE PROTEIN QUANTITATIV < 0.30 MG/DL (0.00-0.30)
[2017-06-22 18:49] LABS: ERYTHROCYTE SEDIMENTATION RATE 4 mm/hr (0-20)
== END ==
LOC: M LAB REF 16:26
DX: M06.4 Inflammatory polyarthropathy (principal)

== ENCOUNTER 2018-06-08 20:08 | Emergency (ER) | payer OTHER ==
[~2018-06-08] VITALS: Ht 160 cm; Wt 65.9 kg
[~2018-06-08 20:08] MED LIST changes: -DRIS50002 PO; +DRIS50003 PO; +SERT-141 PO; -SERT50TA PO; -SULF1TAB23 PO; +SULF1TAB93 PO
[2018-06-08 21:04] LABS: BASO # 0.1 10^3/uL (0.0-0.2); BASO % 0.7 % (0.0-1.0); EOS # 0.2 10^3/uL (0.0-0.50); EOS % 2.3 % (0.0-3.0); HEMATOCRIT 35.2 % (36.0-47.0); HEMOGLOBIN 11.6 g/dl (12.0-15.5); LYMPH # 1.7 10^3/uL (1.5-4.5); LYMPH % 24.5 % (24.0-44.0); MEAN CORPUSCULAR HEMOGLOBIN 29.5 pg (27.0-33.0); MEAN CORPUSCULAR VOLUME 89.6 fl (80.0-96.0); MONO # 0.5 10^3/uL (0.0-0.8); MONO % 7.5 % (0.0-5.0); NEUTROPHILS # 4.5 10^3/uL (1.8-7.7); NEUTROPHILS % 64.6 % (36.0-66.0); PLATELET COUNT, AUTOMATED 178 10^3/uL (150-450); RED BLOOD COUNT 3.93 10^6/uL (4.00-5.40)
--- NOTE | 2018-06-08 21:59 | REPVR ---
EXAM: US First Trimester, Transabdominal EXAM DATE/TIME: 06/08/2018 9:16 PM CLINICAL HISTORY: 33 years old, female; Signs and symptoms; Lmp or gestational age (in weeks): 11w 1d; Other: Vaginal bleeding; ; Additional info: Vaginal bleeding/11 weeks TECHNIQUE: Imaging protocol: Real-time transabdominal obstetrical ultrasound of the maternal pelvis and a first trimester , less than 14 weeks 0 days, with image documentation. COMPARISON: No relevant prior studies available. FINDINGS: GESTATION: Gestation: Single gestational sac within the uterus. Heart rate: heart rate is 169 beats per minute. Placenta: Unremarkable. No subchorionic bleed. Amniotic fluid: Amniotic and chorionic fluid are normal for gestational age. BIOMETRY: Estimated gestational age: Gestational age based on crown-rump length is 11 weeks 3 days. Gestational age based on LMP is 11 weeks 1 day. [place]-Rump length: Single fetus demonstrated with a crown-rump length of 46 millimeters. MATTI 12/25/2018. MATERNAL: Uterus: Unremarkable. Cervix: Unremarkable. Right adnexa: Unremarkable. Left adnexa: Unremarkable. Intraperitoneal: No intraperitoneal free fluid. IMPRESSION: Unremarkable oral gestation of 11 weeks 3 days based on crown-rump length. Electronically signed by: Zhen Feng On 06/08/2018 21:59:17 PM
[2018-06-08 22:46] VITALS: BP 113/62
== END 2018-06-08 22:49 | disposition home or self-care (01) ==
LOC: M ED 20:08
DX: O20.0 Threatened abortion (principal); Z3A.11 11 weeks gestation of pregnancy

== ENCOUNTER → 2018-10-03 | Outpatient (CLI) | payer OTHER ==
[~2018-10-03] MED LIST changes: +TRAZ1TAB10 PO; -TRAZO50TA PO
[2018-10-03 09:45] LABS: BASO % 0.5 % (0.0-1.0); EOS # 0.1 10^3/uL (0.0-0.50); EOS % 1.6 % (0.0-3.0); HEMATOCRIT 32.8 % (36.0-47.0); HEMOGLOBIN 10.5 g/dl (12.0-15.5); LYMPH # 1.7 10^3/uL (1.5-4.5); LYMPH % 22.4 % (24.0-44.0); MEAN CORPUSCULAR HEMOGLOBIN 30.3 pg (27.0-33.0); MEAN CORPUSCULAR VOLUME 94.8 fl (80.0-96.0); MONO # 0.6 10^3/uL (0.0-0.8); MONO % 7.2 % (0.0-5.0); NEUTROPHILS # 5.2 10^3/uL (1.8-7.7); NEUTROPHILS % 67.6 % (36.0-66.0); PLATELET COUNT, AUTOMATED 143 10^3/uL (150-450); RED BLOOD COUNT 3.46 10^6/uL (4.00-5.40); WHITE BLOOD COUNT 7.7 10^3/uL (4.0-10.0)
== END ==
LOC: M LAB 08:55
PROVIDERS: ATTEND Obstetrics & Gynecology Obstetrics
DX: Z34.82 Encounter for supervision of other normal pregnancy, second trimester (principal)

== ENCOUNTER → 2019-08-28 | Outpatient (CLI) | payer OTHER ==
[~2019-08-28] MED LIST changes: -LAMO100T PO; +LAMO100T3 PO; -OMEP40CA2 PO; +OMEP40CA97 PO
--- NOTE | 2019-08-28 11:26 | REP ---
LEFT KNEE, SIX VIEWS: Six views of the left knee performed. There is no acute fracture or dislocation. There is an unfused ossicle at the anterior tibial tubercle. Joint spaces appear unremarkable. I see no joint effusion. IMPRESSION: No acute abnormalities. Electronically Signed by Jovani Tran MD 08/29/2019 11:14 A
== END ==
LOC: M WUC 10:23
PROVIDERS: ATTEND Physician Assistant
DX: M25.562 Pain in left knee (principal)

== ENCOUNTER → 2019-08-28 | Outpatient (CLI) | payer OTHER ==
[2019-08-28 12:33] LABS: BASO # 0.1 10^3/uL (0.0-0.2); BASO % 1.6 % (0.0-1.0); EOS # 0.2 10^3/uL (0.0-0.5); EOS % 4.3 % (0.0-3.0); HEMATOCRIT 38.3 % (36.0-47.0); LYMPH % 21.7 % (24.0-44.0); MEAN CORPUSCULAR HEMOGLOBIN 25.8 pg (27.0-33.0); MEAN CORPUSCULAR HGB CONC 31.3 g/dl (32.0-36.5); MEAN CORPUSCULAR VOLUME 82.2 fl (80.0-96.0); MONO # 0.4 10^3/uL (0.0-0.8); MONO % 8.1 % (0.0-5.0); NEUTROPHILS # 2.9 10^3/uL (1.5-8.5); NEUTROPHILS % 64.1 % (36.0-66.0); PLATELET COUNT, AUTOMATED 193 10^3/uL (150-450); RED BLOOD COUNT 4.66 10^6/uL (4.00-5.40); WHITE BLOOD COUNT 4.5 10^3/uL (4.0-10.0)
[2019-08-28 13:11] LABS: BLOOD UREA NITROGEN 18 MG/DL (7-18); CREATININE FOR GFR 0.86 MG/DL (0.55-1.30); GLUCOSE, FASTING 81 MG/DL (70-100)
[2019-08-28 13:12] LABS: ALBUMIN 3.7 GM/DL (3.2-5.2); ALT/SGPT 23 U/L (12-78); BILIRUBIN,DIRECT 0.1 MG/DL (0.0-0.2); BILIRUBIN,TOTAL 0.4 MG/DL (0.2-1.0); CALCIUM LEVEL 9.3 MG/DL (8.5-10.1); CARBON DIOXIDE LEVEL 30 MEQ/L (21-32); CHLORIDE LEVEL 106 MEQ/L (98-107); CHOLESTEROL LEVEL 201 MG/DL (<200); CHOLESTEROL RISK RATIO 3.526 (<5); GLOMERULAR FILTRATION RATE > 60.0 (>60); HDL CHOLESTEROL 57 MG/DL (>40); LDL CHOLESTEROL 111 MG/DL (<100); LITHIUM LEVEL < 0.20 MEQ/L (0.60-1.20); NON-HDL-C 144 MG/DL; POTASSIUM SERUM 4.2 MEQ/L (3.5-5.1); SODIUM LEVEL 139 MEQ/L (136-145); TOTAL 25(OH) VITAMIN D 27.8 NG/ML (30.0-100.0); TOTAL PROTEIN 6.7 GM/DL (6.4-8.2); TRIGLYCERIDES LEVEL 163 MG/DL (<150); VITAMIN B12 LEVEL 423 PG/ML (247-911)
== END ==
LOC: M WUC 10:34
PROVIDERS: ATTEND Nurse Practitioner Psychiatric/Mental Health
DX: Z51.81 Encounter for therapeutic drug level monitoring (principal); Z79.899 Other long term (current) drug therapy; F31.81 Bipolar II disorder

== ENCOUNTER → 2020-04-02 | Outpatient (CLI) | payer OTHER ==
[2020-04-02 10:38] LABS: BASO # 0.1 10^3/uL (0.0-0.2); BASO % 1.7 % (0.0-1.0); EOS # 0.3 10^3/uL (0.0-0.5); EOS % 6.3 % (0.0-3.0); HEMATOCRIT 40.9 % (36.0-47.0); HEMOGLOBIN 12.4 g/dl (12.0-15.5); LYMPH % 19.1 % (24.0-44.0); MEAN CORPUSCULAR HEMOGLOBIN 25.1 pg (27.0-33.0); MEAN CORPUSCULAR HGB CONC 30.3 g/dl (32.0-36.5); MEAN CORPUSCULAR VOLUME 82.8 fl (80.0-96.0); MONO # 0.4 10^3/uL (0.0-0.8); MONO % 7.1 % (0.0-5.0); NEUTROPHILS # 3.4 10^3/uL (1.5-8.5); NEUTROPHILS % 65.6 % (36.0-66.0); PLATELET COUNT, AUTOMATED 239 10^3/uL (150-450); RED BLOOD COUNT 4.94 10^6/uL (4.00-5.40); WHITE BLOOD COUNT 5.2 10^3/uL (4.0-10.0)
[2020-04-02 11:20] LABS: ALBUMIN 3.8 GM/DL (3.2-5.2); ALT/SGPT 14 U/L (12-78); BILIRUBIN,DIRECT 0.1 MG/DL (0.0-0.2); BILIRUBIN,TOTAL 0.5 MG/DL (0.2-1.0); BLOOD UREA NITROGEN 12 MG/DL (7-18); CALCIUM LEVEL 8.9 MG/DL (8.5-10.1); CARBON DIOXIDE LEVEL 28 MEQ/L (21-32); CHLORIDE LEVEL 104 MEQ/L (98-107); CHOLESTEROL LEVEL 179 MG/DL (<200); CHOLESTEROL RISK RATIO 3.314 (<5); CREATININE FOR GFR 0.91 MG/DL (0.55-1.30); GLOMERULAR FILTRATION RATE > 60.0 (>60); GLUCOSE, FASTING 71 MG/DL (70-100); GLUCOSE,RANDOM 71 MG/DL (LESS THAN 200); HDL CHOLESTEROL 54 MG/DL (>40); LDL CHOLESTEROL 96 MG/DL (<100); LITHIUM LEVEL 0.39 MEQ/L (0.60-1.20); NON-HDL-C 125 MG/DL; PHOSPHORUS LEVEL 3.3 MG/DL (2.5-4.9); POTASSIUM SERUM 4.5 MEQ/L (3.5-5.1); SODIUM LEVEL 139 MEQ/L (136-145); TOTAL PROTEIN 6.3 GM/DL (6.4-8.2); TRIGLYCERIDES LEVEL 144 MG/DL (<150)
[2020-04-02 11:25] LABS: THYROGLOBULIN ANTIBODY < 15.0 U/ML (<60.0); TOTAL 25(OH) VITAMIN D 17.6 NG/ML (30.0-100.0)
== END ==
LOC: M PLALAB 08:50
PROVIDERS: ATTEND Registered Nurse
DX: F31.81 Bipolar II disorder (principal); Z51.81 Encounter for therapeutic drug level monitoring; E55.9 Vitamin D deficiency, unspecified; Z13.6 Encounter for screening for cardiovascular disorders; Z13.1 Encounter for screening for diabetes mellitus

== ENCOUNTER 2020-09-25 20:44 | Emergency (ER) | payer OTHER ==
[~2020-09-25] VITALS: Ht 160 cm; Wt 68.0 kg
[~2020-09-25 20:44] MED LIST changes: +BACTDSTA PO; -LATU40TA PO; +LATU40TA2 PO; +OMEP40CA4 PO; -OMEP40CA97 PO; -SULF1TAB93 PO
[2020-09-25] MEDS ORDERED: EMGA120I SC (20:53)
[2020-09-25] MEDS ORDERED: LATU1TAB PO (20:53)
[2020-09-25] MEDS ORDERED: LITH300T2 PO (20:53)
[2020-09-25] MEDS ORDERED: NORE1PAT TD (20:53)
[2020-09-25 21:15] LABS: HEMATOCRIT 42.8 % (36.0-47.0); HEMOGLOBIN 12.9 g/dl (12.0-15.5); MEAN CORPUSCULAR HEMOGLOBIN 24.4 pg (27.0-33.0); MEAN CORPUSCULAR HGB CONC 30.1 g/dl (32.0-36.5); MEAN CORPUSCULAR VOLUME 81.1 fl (80.0-96.0); PLATELET COUNT, AUTOMATED 284 10^3/uL (150-450); RED BLOOD COUNT 5.28 10^6/uL (4.00-5.40); WHITE BLOOD COUNT 8.7 10^3/uL (4.0-10.0)
[2020-09-25 21:39] LABS: AMPHETAMINES LEVEL URINE NEGATIVE (NEGATIVE); BARBITURATES URINE NEGATIVE (NEGATIVE); BENZODIAZEPINES URINE NEGATIVE (NEGATIVE); CANNABINOIDS URINE NEGATIVE (NEGATIVE); COCAINE METABOLITE URINE NEGATIVE (NEGATIVE); METHADONE URINE NEGATIVE (NEGATIVE); OPIATES URINE NEGATIVE (NEGATIVE); PHENCYCLIDINE URINE NEGATIVE (NEGATIVE)
[2020-09-25 21:45] LABS: ACETAMINOPHEN LEVEL < 2.0 UG/ML (10.0-30.0); ALT/SGPT 14 U/L (12-78); BILIRUBIN,DIRECT 0.1 MG/DL (0.0-0.2); BILIRUBIN,TOTAL 0.2 MG/DL (0.2-1.0); BLOOD UREA NITROGEN 17 MG/DL (7-18); CALCIUM LEVEL 9.2 MG/DL (8.5-10.1); CARBON DIOXIDE LEVEL 31 MEQ/L (21-32); CHLORIDE LEVEL 105 MEQ/L (98-107); CREATININE FOR GFR 1.08 MG/DL (0.55-1.30); ETHYL ALCOHOL (ETHANOL) < 0.003 % (0.000-0.010); GLOMERULAR FILTRATION RATE > 60.0 (>60); GLUCOSE, FASTING 82 MG/DL (70-100); POTASSIUM SERUM 3.8 MEQ/L (3.5-5.1); SODIUM LEVEL 140 MEQ/L (136-145); TOTAL PROTEIN 7.3 GM/DL (6.4-8.2)
[2020-09-25 21:49] LABS: HCG, SERUM QUALITATIVE NEGATIVE (NEGATIVE)
[2020-09-26 00:19] VITALS: BP 176/98
== END 2020-09-26 00:39 | disposition home or self-care (01) ==
LOC: M ED 20:44
DX: F43.0 Acute stress reaction (principal); F31.9 Bipolar disorder, unspecified; F17.210 Nicotine dependence, cigarettes, uncomplicated; Z79.3 Long term (current) use of hormonal contraceptives; Z79.899 Other long term (current) drug therapy; Z98.84 Bariatric surgery status

== ENCOUNTER → 2020-12-01 | Outpatient (CLI) | payer OTHER ==
[~2020-12-01] MED LIST changes: +EMGA120I SC; +LATU1TAB PO; +LATU40TA PO; -LATU40TA2 PO; +LITH300T2 PO; +NORE1PAT TD
== END ==
LOC: M WUC 09:28
PROVIDERS: ATTEND Registered Nurse
DX: Z51.81 Encounter for therapeutic drug level monitoring (principal); Z13.9 Encounter for screening, unspecified

== ENCOUNTER → 2021-02-16 | Outpatient (CLI) | payer OTHER ==
[~2021-02-16] MED LIST changes: -LATU40TA PO; +LATU40TA2 PO
== END ==
LOC: M WUC 09:53
PROVIDERS: ATTEND Nurse Practitioner Family
DX: F31.81 Bipolar II disorder (principal)

== ENCOUNTER 2022-02-07 20:24 | Emergency (ER) | payer OTHER ==
[~2022-02-07] VITALS: Ht 160 cm; Wt 66.4 kg
[2022-02-07 20:25] VITALS: BP 174/100
[2022-02-07 21:07] LABS: APPEARANCE, URINE MANUAL CLOUDY (CLEAR); COLOR, URINE MANUAL RED (YELLOW)
[2022-02-07 21:08] LABS: BILIRUBIN, URINE MANUAL NEGATIVE (NEGATIVE); BLOOD URINE MANUAL POSITIVE (NEGATIVE); GLUCOSE, URINE (UA) MANUAL NEGATIVE (NEGATIVE); KETONE, URINE MANUAL NEGATIVE (NEGATIVE); NITRITE, URINE MANUAL NEGATIVE (NEGATIVE); PROTEIN, URINE MANUAL 2+ mg/dL (NEGATIVE); UROBILINOGEN, URINE MANUAL NORMAL (NORMAL)
[2022-02-07 21:09] LABS: LEUKOCYTE ESTERASE, URINE MAN TRACE (NEGATIVE)
[2022-02-07 21:19] LABS: BACTERIA, URINE SMALL AMOUNT; HYALINE CAST, URINE NONE SEEN /lpf (0-1); RBC, URINE TNTC /hpf (0-3); SQUAMOUS EPITHELIAL CELL URINE MOD AMOUNT /hpf (SMALL AMT)
[2022-02-07 21:20] LABS: MUCUS, URINE SMALL AMOUNT (NEGATIVE)
[2022-02-07 21:38] LABS: BASO # 0.1 10^3/uL (0.0-0.2); BASO % 0.8 % (0.0-1.0); EOS # 0.3 10^3/uL (0.0-0.5); EOS % 3.4 % (0.0-3.0); HEMATOCRIT 34.6 % (36.0-47.0); HEMOGLOBIN 10.6 g/dl (12.0-15.5); LYMPH # 1.5 10^3/uL (1.5-5.0); LYMPH % 20.5 % (24.0-44.0); MEAN CORPUSCULAR HEMOGLOBIN 23.1 pg (27.0-33.0); MEAN CORPUSCULAR HGB CONC 30.6 g/dl (32.0-36.5); MEAN CORPUSCULAR VOLUME 75.5 fl (80.0-96.0); MONO # 0.5 10^3/uL (0.0-0.8); MONO % 6.4 % (2.0-8.0); NEUTROPHILS # 5.1 10^3/uL (1.5-8.5); NEUTROPHILS % 68.5 % (36.0-66.0); PLATELET COUNT, AUTOMATED 223 10^3/uL (150-450); RED BLOOD COUNT 4.58 10^6/uL (4.00-5.40); WHITE BLOOD COUNT 7.4 10^3/uL (4.0-10.0)
[2022-02-07 22:43] LABS: BLOOD UREA NITROGEN 19 MG/DL (9-23); CALCIUM LEVEL 8.5 MG/DL (8.5-10.1); CARBON DIOXIDE LEVEL 26 MMOL/L (20-31); CHLORIDE LEVEL 104 MMOL/L (98-107); CREATININE FOR GFR 0.69 MG/DL (0.55-1.30); GLOMERULAR FILTRATION RATE > 60.0 (>60); GLUCOSE, FASTING 88 MG/DL (60-100); HCG, SERUM QUANTITATIVE 75589.6 MIU/ML (<4.2); SODIUM LEVEL 138 MMOL/L (136-145)
== END 2022-02-07 23:08 | disposition left against medical advice (07) ==
LOC: M ED 20:24
DX: Z53.21 Procedure and treatment not carried out due to patient leaving prior to being seen by health care provider (principal)

== ENCOUNTER → 2022-02-18 | Outpatient (CLI) | payer OTHER ==
[2022-02-18 18:21] LABS: HEMOGLOBIN 9.9 g/dl (12.0-15.5); MEAN CORPUSCULAR HEMOGLOBIN 23.3 pg (27.0-33.0); MEAN CORPUSCULAR VOLUME 77.8 fl (80.0-96.0); PLATELET COUNT, AUTOMATED 221 10^3/uL (150-450); RED BLOOD COUNT 4.24 10^6/uL (4.00-5.40); WHITE BLOOD COUNT 7.2 10^3/uL (4.0-10.0)
[2022-02-18 19:40] LABS: FOLATE 17.86 NG/ML (>5.4)
[2022-02-18 19:41] LABS: TOTAL 25(OH) VITAMIN D 17.1 NG/ML (20.0-100.0); URIC ACID 2.6 MG/DL (3.1-7.8); VITAMIN B12 LEVEL 667 PG/ML (211-911)
[2022-02-18 19:43] LABS: LDH LACTATE DEHYDROGENASE 176 U/L (120-246)
[2022-02-18 19:44] LABS: ALT/SGPT 15 U/L (7.0-40); AST/SGOT 18 U/L (<34); BILIRUBIN,TOTAL 0.2 MG/DL (0.3-1.2); GLOMERULAR FILTRATION RATE > 60.0 (>60); IRON (FE) 15 UG/DL (50-170)
[2022-02-18 20:05] LABS: HIV 1&2 SCREEN CENTAUR NEGATIVE (NEGATIVE)
[2022-02-18 20:13] LABS: HEPATITIS C VIRUS ABY INDEX 0.1 INDEX (<0.8)
[2022-02-18 22:46] LABS: HEMOGLOBIN A1c 4.9 % (4.0-6.0)
== END ==
LOC: M PLALAB 15:47
PROVIDERS: ATTEND Advanced Practice Midwife
DX: O10.019 Pre-existing essential hypertension complicating pregnancy, unspecified trimester (principal); Z3A.00 Weeks of gestation of pregnancy not specified

== ENCOUNTER → 2022-03-04 | Outpatient (CLI) | payer OTHER ==
[2022-03-04 15:35] LABS: HEMATOCRIT 29.3 % (36.0-47.0); HEMOGLOBIN 9.1 g/dl (12.0-15.5); MEAN CORPUSCULAR HEMOGLOBIN 23.5 pg (27.0-33.0); MEAN CORPUSCULAR HGB CONC 31.1 g/dl (32.0-36.5); MEAN CORPUSCULAR VOLUME 75.5 fl (80.0-96.0); PLATELET COUNT, AUTOMATED 156 10^3/uL (150-450); RED BLOOD COUNT 3.88 10^6/uL (4.00-5.40); WHITE BLOOD COUNT 7.3 10^3/uL (4.0-10.0)
== END ==
LOC: M RAD 14:17
PROVIDERS: ATTEND Advanced Practice Midwife
DX: O46.90 Antepartum hemorrhage, unspecified, unspecified trimester (principal); Z3A.15 15 weeks gestation of pregnancy

== ENCOUNTER → 2022-03-08 | Outpatient (REF) | payer OTHER ==
[2022-03-08 19:59] LABS: GC DNA AMPLIFICATION NEGATIVE (NEGATIVE)
== END ==
LOC: M PLALAB 15:38
PROVIDERS: ATTEND Obstetrics & Gynecology
DX: O46.92 Antepartum hemorrhage, unspecified, second trimester (principal)

== ENCOUNTER 2022-04-10 07:11 | Inpatient (IN) | payer OTHER ==
[2022-04-10] VITALS (19 sets, daily range): BP systolic 119–204; BP diastolic 57–113
[~2022-04-10] VITALS: Ht 160 cm; Wt 69.4 kg
[2022-04-10] MEDS ORDERED: LABE100T71 PO (08:03)
[2022-04-10] MEDS ORDERED: PREN1CHW4 PO (08:03)
[2022-04-10] MEDS ORDERED: REGL10TA6 PO (08:03)
[2022-04-10] MEDS ORDERED: OXYTOCIN DRIP 30 UNITS in IV 1 EA IV PRN (08:05)
[2022-04-10] MEDS ORDERED: BENA25CA4 PO (08:06)
[2022-04-10] MEDS ORDERED: ACET-907 PO (08:06)
[2022-04-10] MEDS ORDERED: HYDR-643 PO (08:08)
[2022-04-10] MEDS ORDERED: HOME MED LIST COMPLETE! XX SCH (08:10)
[2022-04-10 09:46] LABS: HEMATOCRIT 29.3 % (36.0-47.0); HEMOGLOBIN 9.1 g/dl (12.0-15.5); MEAN CORPUSCULAR HEMOGLOBIN 23.3 pg (27.0-33.0); MEAN CORPUSCULAR HGB CONC 31.1 g/dl (32.0-36.5); MEAN CORPUSCULAR VOLUME 75.1 fl (80.0-96.0); PLATELET COUNT, AUTOMATED 209 10^3/uL (150-450)
[2022-04-10 10:13] LABS: URIC ACID 3.2 MG/DL (3.1-7.8)
[2022-04-10 10:15] LABS: TOTAL PROTEIN,RANDOM URINE 49.4 MG/DL (0.0-14.0)
[2022-04-10 10:15] LABS: LDH LACTATE DEHYDROGENASE 173 U/L (120-246)
[2022-04-10 10:16] LABS: ALT/SGPT < 9 U/L (7.0-40); AST/SGOT 18 U/L (<34); BILIRUBIN,TOTAL 0.4 MG/DL (0.3-1.2); CREATININE FOR GFR 0.54 MG/DL (0.55-1.30); GLOMERULAR FILTRATION RATE > 60.0 (>60)
[2022-04-10 10:17] LABS: AMPHETAMINES URINE REFLEX NEGATIVE (NEGATIVE); BARBITURATES URINE REFLEX NEGATIVE (NEGATIVE); BENZODIAZEPINES URINE REFLEX NEGATIVE (NEGATIVE); CANNABINOIDS URINE REFLEX NEGATIVE (NEGATIVE); COCAINE METABOLITE URINE REFLE NEGATIVE (NEGATIVE); PHENCYCLIDINE URINE REFLEX NEGATIVE (NEGATIVE)
[2022-04-10 10:18] LABS: METHADONE URINE REFLEX NEGATIVE (NEGATIVE)
[2022-04-10 10:20] LABS: CREATININE,RANDOM URINE 109.5 MG/DL
[2022-04-10 10:40] LABS: OPIATES URINE REFLEX NEGATIVE (NEGATIVE)
[2022-04-10] MEDS ORDERED: NIFEdipine 10 MG CAP PO ONE (10:50)
[2022-04-10] MEDS: LR 1,000 ML IV SCH ×2 (11:55→15:01)
[2022-04-10] MEDS ORDERED: MIDAZOLAM INJ 2MG/2ML VIAL As Ordered ONE (15:00)
[2022-04-10] MEDS ORDERED: propofoL 200 MG/20 ML VIAL As Ordered ONE ×2 (15:00→15:01)
[2022-04-10] MEDS ORDERED: fentaNYL 100 MCG/2 ML INJECTION As Ordered ONE (15:00)
[2022-04-10] MEDS ORDERED: LIDOCAINE 2% 100MG/5ML SDV (FOR ANES.) As Ordered ONE ×2 (15:00→15:01)
[2022-04-10] MEDS ORDERED: ROCURONIUM BROMIDE 50MG/5ML VIAL As Ordered ONE (15:25)
[2022-04-10] MEDS ORDERED: PHENYLephrine 500MCG 5ML (100MCG/ML) SYRINGE As Ordered ONE (15:30)
[2022-04-10] MEDS ORDERED: ACETAMINOPHEN 1000MG 100ML IV BAG As Ordered ONE (15:37)
[2022-04-10] MEDS ORDERED: ONDANSETRON 4MG 2ML VIAL As Ordered ONE (15:37)
[2022-04-10] MEDS ORDERED: METOCLOPRAMIDE INJ 10MG/2ML VIAL As Ordered ONE (15:37)
[2022-04-10] MEDS ORDERED: KETOROLAC 60MG 2ML VIAL As Ordered ONE (15:37)
[2022-04-10] MEDS ORDERED: SUGAMMADEX SODIUM 500 MG/5 ML VIAL (BRIDION) As Ordered ONE (15:49)
[2022-04-10] MEDS ORDERED: OXYTOCIN INJ 10UNITS/ML 1ML VIAL As Ordered ONE (16:00)
[2022-04-10] MEDS ORDERED: ONDANSETRON 4MG 2ML VIAL IV PRN (16:20)
[2022-04-10] MEDS ORDERED: HYDROMORPHONE HCL 0.5 MG/ 0.5 ML SYRINGE IV PRN (16:20)
[2022-04-10] MEDS ORDERED: LR 1,000 ML IV SCH (16:20)
[2022-04-10] MEDS ORDERED: METOCLOPRAMIDE INJ 10MG/2ML VIAL IV PRN (16:20)
[2022-04-10] MEDS ORDERED: fentaNYL 100 MCG/2 ML INJECTION IV PRN (16:20)
[2022-04-10] MEDS ORDERED: oxyCODONE 5MG TAB PO PRN (16:20)
[2022-04-10] MEDS ORDERED: DOCUSATE SODIUM 100MG CAPSULE PO PRN (16:55)
[2022-04-10] MEDS ORDERED: IBUPROFEN 800 MG TAB PO PRN (16:55)
[2022-04-10] MEDS ORDERED: DIBUCAINE 1% OINTMENT 30GM TOP PRN (16:55)
[2022-04-10] MEDS ORDERED: RHOGAM 300MCG (1500IU) INJ IM SCH (16:55)
[2022-04-10] MEDS ORDERED: ACETAMINOPHEN 500 MG TAB PO PRN (16:55)
[2022-04-10] MEDS ORDERED: IBUPROFEN 600MG TAB PO PRN (16:55)
[2022-04-10] MEDS ORDERED: ACETAMINOPHEN TAB 650MG DOSE (2X325MG) PO PRN (16:55)
[2022-04-10] MEDS ORDERED: AMPICILLIN SOD/SULBACTAM SOD 3 GM in D5W MINI-BAG PLUS 100 ML IV ONE (17:30)
[2022-04-10] MEDS: LABETALOL 100MG TAB PO SCH (21:20)
[2022-04-11 02:15] VITALS: BP 125/64
[2022-04-11 06:00] VITALS: BP 126/68
[2022-04-11 07:31] LABS: HEMATOCRIT 26.8 % (36.0-47.0); HEMOGLOBIN 8.7 g/dl (12.0-15.5); MEAN CORPUSCULAR HEMOGLOBIN 25.7 pg (27.0-33.0); MEAN CORPUSCULAR HGB CONC 32.5 g/dl (32.0-36.5); MEAN CORPUSCULAR VOLUME 79.1 fl (80.0-96.0); PLATELET COUNT, AUTOMATED 176 10^3/uL (150-450); RED BLOOD COUNT 3.39 10^6/uL (4.00-5.40); WHITE BLOOD COUNT 6.9 10^3/uL (4.0-10.0)
[2022-04-11 08:25] VITALS: BP 135/71
[2022-04-11] MEDS: LABETALOL 100MG TAB PO SCH (08:25)
[2022-04-11 08:40] VITALS: BP 135/71
[2022-04-11] MEDS ORDERED: PRENATAL VITAMINS CHEWABLE TABLET PO SCH (09:00)
[2022-04-11 10:00] VITALS: BP 128/65
[2022-04-12] MEDS ORDERED: MEASLES,MUMPS,RUBELLA VACCINE INJ (MMR-II) SC.IMMUN ONE (09:00)
== END 2022-04-11 12:38 | disposition home or self-care (01) | DRG 544 ==
LOC: M LDO 07:11 → M LDI 07:52 → M OBS 17:00
PROVIDERS: ADMIT Specialist; ATTEND Specialist
PROC: 3E0P7GC Introduction of Other Therapeutic Substance into Female Reproductive, Via Natural or Artificial Opening (ICD-10-PCS; 2022-04-10)
PROC: 30233N1 Transfusion of Nonautologous Red Blood Cells into Peripheral Vein, Percutaneous Approach (ICD-10-PCS; 2022-04-10)
PROC: 10D17Z9 Manual Extraction of Products of Conception, Retained, Via Natural or Artificial Opening (ICD-10-PCS; principal; 2022-04-10 14:37)
DX: O73.0 Retained placenta without hemorrhage (principal); Z3A.20 20 weeks gestation of pregnancy

== ENCOUNTER 2022-08-14 06:38 | Inpatient (IN) | payer OTHER ==
[2022-08-14] VITALS (7 sets, daily range): BP systolic 135–154; BP diastolic 79–88
[~2022-08-14] VITALS: Ht 160 cm; Wt 63.6 kg
[~2022-08-14 06:38] MED LIST changes: +ACET-907 PO; +BENA25CA4 PO; +HYDR-643 PO; +LABE100T71 PO; +PREN1CHW4 PO; +REGL10TA6 PO
[2022-08-14] MEDS ORDERED: CARV6.25 PO (07:50)
[2022-08-14] MEDS ORDERED: LITH150C PO (07:50)
[2022-08-14] MEDS ORDERED: AMLO1TAB25 PO (07:50)
[2022-08-14] MEDS ORDERED: ATOM10CA PO (07:50)
[2022-08-14 08:09] LABS: BASO # 0.1 10^3/uL (0.0-0.2); BASO % 1.6 % (0.0-1.0); EOS # 0.3 10^3/uL (0.0-0.5); HEMATOCRIT 39.3 % (36.0-47.0); HEMOGLOBIN 11.9 g/dl (12.0-15.5); LYMPH # 1.1 10^3/uL (1.5-5.0); LYMPH % 25.3 % (24.0-44.0); MEAN CORPUSCULAR HGB CONC 30.3 g/dl (32.0-36.5); MEAN CORPUSCULAR VOLUME 72.5 fl (80.0-96.0); MONO # 0.4 10^3/uL (0.0-0.8); MONO % 9.3 % (2.0-8.0); NEUTROPHILS # 2.5 10^3/uL (1.5-8.5); NEUTROPHILS % 56.6 % (36.0-66.0); PLATELET COUNT, AUTOMATED 220 10^3/uL (150-450); RED BLOOD COUNT 5.42 10^6/uL (4.00-5.40); WHITE BLOOD COUNT 4.4 10^3/uL (4.0-10.0)
[2022-08-14 08:12] LABS: LIPASE 24 U/L (12-53)
[2022-08-14 08:15] LABS: ALBUMIN 3.8 G/DL (3.2-5.2); ALKALINE PHOSPHATASE 85 U/L (46-116); ALT/SGPT 17 U/L (7.0-40); AST/SGOT 21 U/L (<34); BILIRUBIN,DIRECT < 0.1 MG/DL (<0.4); BILIRUBIN,TOTAL 0.3 MG/DL (0.3-1.2); TOTAL PROTEIN 6.3 G/DL (5.7-8.2)
[2022-08-14] MEDS ORDERED: ONDANSETRON 4MG 2ML VIAL IV ONE (08:55)
[2022-08-14] MEDS ORDERED: MORPHINE 4 MG/ML 1ML VIAL IV ONE ×2 (08:55→11:05)
[2022-08-14] MEDS ORDERED: NS 1,000 ML IV ONE ×2 (08:55→13:35)
[2022-08-14] MEDS ORDERED: PANTOPRAZOLE 40MG VIAL IV ONE (08:55)
[2022-08-14] MEDS ORDERED: GI COCKTAIL 50ML BTL(HYOSCYAMINE/MAALOX/LIDOCAINE VISCOUS)(1:3:1) PO ONE (08:55)
[2022-08-14] MEDS ORDERED: SUCRALFATE 1 GM TAB PO ONE (08:55)
[2022-08-14 09:16] LABS: CK-MB VALUE MASS < 1.0 NG/ML (<3.6)
[2022-08-14 09:36] LABS: ETHYL ALCOHOL (ETHANOL) 0.019 % (0.000-0.010)
[2022-08-14 09:39] LABS: CPK CREATINE PHOSPHOKINASE 119 U/L (34-145); MB/CK RELATIVE INDEX 0.84 (< OR =4)
[2022-08-14] MEDS: GASTROGRAFIN SOLUTION 30ML PO SCH ×2 (10:03→10:15)
[2022-08-14] MEDS ORDERED: PROMETHAZINE 25MG/ML 1ML VIAL IV ONE (10:20)
[2022-08-14] MEDS ORDERED: ISOVUE-370 76% 100ML VIAL As Ordered ONE (11:07)
[2022-08-14 14:22] LABS: RSV AMPLIFICATION NEGATIVE (NEGATIVE)
[2022-08-14] MEDS ORDERED: HOME MED LIST COMPLETE! XX SCH (14:25)
[2022-08-14] MEDS: NS 1,000 ML IV SCH ×2 (14:55→22:55)
[2022-08-14] MEDS ORDERED: ONDANSETRON 4MG 2ML VIAL IV PRN ×2 (14:55→17:00)
[2022-08-14] MEDS ORDERED: ZOSYN 3.375GM VIAL As Ordered ONE (15:54)
[2022-08-14] MEDS ORDERED: BUPIVACAINE/EPIN 0.25% 30ML VIAL As Ordered ONE (15:55)
[2022-08-14] MEDS: PIPERACILLIN/TAZOBACTAM SOD 3.375 GM in D5W MINI-BAG PLUS 50 ML IV SCH ×2 (16:00→21:14)
[2022-08-14] MEDS ORDERED: LIDOCAINE 2% 100MG/5ML SDV (FOR ANES.) As Ordered ONE (16:18)
[2022-08-14] MEDS ORDERED: propofoL 200 MG/20 ML VIAL As Ordered ONE (16:18)
[2022-08-14] MEDS ORDERED: fentaNYL 250 MCG/5 ML INJECTION As Ordered ONE (16:18)
[2022-08-14] MEDS ORDERED: PHENYLephrine 500MCG 5ML (100MCG/ML) SYRINGE As Ordered ONE (16:18)
[2022-08-14] MEDS ORDERED: ROCURONIUM BROMIDE 50MG/5ML VIAL As Ordered ONE (16:18)
[2022-08-14] MEDS ORDERED: MIDAZOLAM INJ 2MG/2ML VIAL As Ordered ONE (16:18)
[2022-08-14] MEDS ORDERED: ONDANSETRON 4MG 2ML VIAL As Ordered ONE (16:18)
[2022-08-14] MEDS ORDERED: ACETAMINOPHEN 1000MG 100ML IV BAG As Ordered ONE (16:18)
[2022-08-14] MEDS ORDERED: SUGAMMADEX SODIUM 500 MG/5 ML VIAL (BRIDION) As Ordered ONE (16:26)
[2022-08-14] MEDS ORDERED: LORazepam 2 MG TAB PO PRN (16:55)
[2022-08-14] MEDS ORDERED: HYDROMORPHONE HCL 0.5 MG/ 0.5 ML SYRINGE IV PRN (17:00)
[2022-08-14] MEDS ORDERED: fentaNYL 100 MCG/2 ML INJECTION IV PRN (17:00)
[2022-08-14] MEDS ORDERED: MEPERIDINE 25 MG/ML 1ML VIAL IV PRN (17:00)
[2022-08-14] MEDS ORDERED: oxyCODONE 5MG TAB PO PRN (17:00)
[2022-08-14] MEDS ORDERED: LORazepam 2 MG/ML 1ML VIAL IV PRN (17:10)
[2022-08-14] MEDS: FLUCONAZOLE 200 MG in IV 1 EA IV SCH (18:55)
[2022-08-14] MEDS: PANTOPRAZOLE 40MG VIAL IV SCH (21:13)
[2022-08-15 02:45] VITALS: BP 140/80
[2022-08-15] MEDS: MORPHINE 2 MG/ML 1ML VIAL IV PRN (02:46)
[2022-08-15] MEDS: PIPERACILLIN/TAZOBACTAM SOD 3.375 GM in D5W MINI-BAG PLUS 50 ML IV SCH ×4 (03:46→22:32)
[2022-08-15] MEDS: NS 1,000 ML IV SCH ×3 (05:34→22:55)
[2022-08-15] MEDS: KETOROLAC 30 MG/ML 1ML VIAL IV PRN ×3 (05:34→20:37)
[2022-08-15 06:15] VITALS: BP 140/80
[2022-08-15 06:32] LABS: HEMATOCRIT 31.3 % (36.0-47.0); MEAN CORPUSCULAR HEMOGLOBIN 21.8 pg (27.0-33.0); MEAN CORPUSCULAR HGB CONC 29.4 g/dl (32.0-36.5); MEAN CORPUSCULAR VOLUME 74.2 fl (80.0-96.0); PLATELET COUNT, AUTOMATED 174 10^3/uL (150-450); RED BLOOD COUNT 4.22 10^6/uL (4.00-5.40); WHITE BLOOD COUNT 12.7 10^3/uL (4.0-10.0)
[2022-08-15 06:35] LABS: HEMOGLOBIN 9.2 g/dl (12.0-15.5)
[2022-08-15 06:45] VITALS: BP 138/82
[2022-08-15 07:02] LABS: ALBUMIN 2.7 G/DL (3.2-5.2); ALKALINE PHOSPHATASE 68 U/L (46-116); ALT/SGPT 21 U/L (7.0-40); AST/SGOT 21 U/L (<34); BILIRUBIN,TOTAL 0.5 MG/DL (0.3-1.2); BLOOD UREA NITROGEN 14 MG/DL (9-23); CALCIUM LEVEL 7.7 MG/DL (8.5-10.1); CARBON DIOXIDE LEVEL 24 MMOL/L (20-31); CHLORIDE LEVEL 107 MMOL/L (98-107); CREATININE FOR GFR 0.74 MG/DL (0.55-1.30); GLOMERULAR FILTRATION RATE > 60.0 (>60); GLUCOSE, FASTING 129 MG/DL (60-100); SODIUM LEVEL 139 MMOL/L (136-145); TOTAL PROTEIN 4.8 G/DL (5.7-8.2)
[2022-08-15] MEDS: PANTOPRAZOLE 40MG VIAL IV SCH ×2 (09:40→20:37)
[2022-08-15] MEDS: MULTIVITAMIN -ADULT INJECTION 10 ML, THIAMINE INJection 100 MG, FOLIC ACID 1 MG in NS 1... IV SCH (09:41)
[2022-08-15 14:00] VITALS: BP_SYST 141; BP_SYST 153; BP_DIAS 78; BP_DIAS 89
[2022-08-15] MEDS ORDERED: ULIPRISTAL ACETATE 30MG TAB (ELLA) PO ONE (16:00)
[2022-08-15 16:56] LABS: GC DNA AMPLIFICATION NEGATIVE (NEGATIVE)
[2022-08-15] MEDS: FLUCONAZOLE 200 MG in IV 1 EA IV SCH (17:48)
[2022-08-15 20:24] VITALS: BP 141/78
[2022-08-15 22:00] VITALS: BP 141/78
[2022-08-16 04:45] VITALS: BP 142/81
[2022-08-16] MEDS: PIPERACILLIN/TAZOBACTAM SOD 3.375 GM in D5W MINI-BAG PLUS 50 ML IV SCH ×4 (04:47→21:54)
[2022-08-16 05:10] VITALS: BP 142/71
[2022-08-16 06:37] LABS: HEMATOCRIT 28.1 % (36.0-47.0); HEMOGLOBIN 8.3 g/dl (12.0-15.5); MEAN CORPUSCULAR HEMOGLOBIN 21.9 pg (27.0-33.0); MEAN CORPUSCULAR HGB CONC 29.5 g/dl (32.0-36.5); MEAN CORPUSCULAR VOLUME 74.1 fl (80.0-96.0); PLATELET COUNT, AUTOMATED 147 10^3/uL (150-450); RED BLOOD COUNT 3.79 10^6/uL (4.00-5.40)
[2022-08-16 07:14] LABS: ALBUMIN 2.4 G/DL (3.2-5.2); ALKALINE PHOSPHATASE 64 U/L (46-116); ALT/SGPT 19 U/L (7.0-40); AST/SGOT 14 U/L (<34); BILIRUBIN,TOTAL 0.3 MG/DL (0.3-1.2); BLOOD UREA NITROGEN 16 MG/DL (9-23); CALCIUM LEVEL 7.6 MG/DL (8.5-10.1); CARBON DIOXIDE LEVEL 25 MMOL/L (20-31); CHLORIDE LEVEL 109 MMOL/L (98-107); CREATININE FOR GFR 0.71 MG/DL (0.55-1.30); GLOMERULAR FILTRATION RATE > 60.0 (>60); GLUCOSE, FASTING 87 MG/DL (60-100); POTASSIUM SERUM 3.6 MMOL/L (3.5-5.1); SODIUM LEVEL 140 MMOL/L (136-145); TOTAL PROTEIN 4.5 G/DL (5.7-8.2)
[2022-08-16 07:55] VITALS: BP 140/74
[2022-08-16] MEDS: PANTOPRAZOLE 40MG VIAL IV SCH ×2 (07:55→20:41)
[2022-08-16] MEDS: NS 1,000 ML IV SCH ×3 (07:55→21:54)
[2022-08-16] MEDS: MULTIVITAMIN -ADULT INJECTION 10 ML, THIAMINE INJection 100 MG, FOLIC ACID 1 MG in NS 1... IV SCH ×2 (09:00→09:53)
[2022-08-16] MEDS ORDERED: E-Z-GAS II EFFERVESCENT PACKET (SODIUM BICARB./CITRIC ACID/SIMETHICONE) As Ordered ONE (09:50)
[2022-08-16] MEDS ORDERED: E-Z-PAQUE 96% w/w SUSP 176GM BTL As Ordered ONE (09:50)
[2022-08-16] MEDS ORDERED: E-Z-HD 98% w/w 340GM SUSP BTL As Ordered ONE (09:50)
[2022-08-16] MEDS ORDERED: GASTROGRAFIN SOLUTION 30ML As Ordered ONE (10:19)
[2022-08-16 14:00] VITALS: BP 151/88
[2022-08-16] MEDS: FLUCONAZOLE 200 MG in IV 1 EA IV SCH (17:26)
[2022-08-16] MEDS: MORPHINE 2 MG/ML 1ML VIAL IV PRN (19:10)
[2022-08-16] MEDS: KETOROLAC 30 MG/ML 1ML VIAL IV PRN (21:54)
[2022-08-16 22:10] VITALS: BP_SYST 150; BP_DIAS 81; BP_DIAS 91
[2022-08-17] MEDS: PIPERACILLIN/TAZOBACTAM SOD 3.375 GM in D5W MINI-BAG PLUS 50 ML IV SCH ×2 (04:46→09:37)
[2022-08-17 05:20] VITALS: BP 133/73
[2022-08-17 06:09] LABS: HEMOGLOBIN 9.4 g/dl (12.0-15.5); MEAN CORPUSCULAR HEMOGLOBIN 22.2 pg (27.0-33.0); MEAN CORPUSCULAR HGB CONC 30.3 g/dl (32.0-36.5); MEAN CORPUSCULAR VOLUME 73.3 fl (80.0-96.0); PLATELET COUNT, AUTOMATED 174 10^3/uL (150-450); RED BLOOD COUNT 4.23 10^6/uL (4.00-5.40); WHITE BLOOD COUNT 8.7 10^3/uL (4.0-10.0)
[2022-08-17 06:52] LABS: ALBUMIN 2.7 G/DL (3.2-5.2); ALKALINE PHOSPHATASE 74 U/L (46-116); ALT/SGPT 14 U/L (7.0-40); AST/SGOT 13 U/L (<34); BILIRUBIN,TOTAL 0.4 MG/DL (0.3-1.2); BLOOD UREA NITROGEN 6 MG/DL (9-23); CALCIUM LEVEL 7.5 MG/DL (8.5-10.1); CARBON DIOXIDE LEVEL 26 MMOL/L (20-31); CHLORIDE LEVEL 104 MMOL/L (98-107); CREATININE FOR GFR 0.61 MG/DL (0.55-1.30); GLOMERULAR FILTRATION RATE > 60.0 (>60); GLUCOSE, FASTING 81 MG/DL (60-100); POTASSIUM SERUM 3.3 MMOL/L (3.5-5.1); SODIUM LEVEL 140 MMOL/L (136-145); TOTAL PROTEIN 4.9 G/DL (5.7-8.2)
[2022-08-17] MEDS ORDERED: POTASSIUM CHLORIDE 10% LIQ 20MEQ/15ML UDC PO ONE (07:00)
[2022-08-17] MEDS: MULTIVITAMIN -ADULT INJECTION 10 ML, THIAMINE INJection 100 MG, FOLIC ACID 1 MG in NS 1... IV SCH (09:00)
[2022-08-17] MEDS: PANTOPRAZOLE 40MG VIAL IV SCH (09:37)
[2022-08-17] MEDS ORDERED: AMOX875T2 PO (11:04)
[2022-08-17] MEDS ORDERED: OMEP20TA2 PO (11:04)
[2022-08-17] MEDS ORDERED: CARA1TAB6 PO (11:04)
== END 2022-08-17 13:30 | disposition home or self-care (01) | DRG 223 ==
LOC: EDBD 06:38 → M ED 06:38 → M ED INP 14:55 → M MS5PR 18:10
PROVIDERS: ADMIT Surgery; ATTEND Surgery
PROC: 8E0W4CZ Robotic Assisted Procedure of Trunk Region, Percutaneous Endoscopic Approach (ICD-10-PCS; 2022-08-14)
PROC: 0DUA47Z Supplement Jejunum with Autologous Tissue Substitute, Percutaneous Endoscopic Approach (ICD-10-PCS; principal; 2022-08-14 15:02)
DX: K28.5 Chronic or unspecified gastrojejunal ulcer with perforation (principal); D62 Acute posthemorrhagic anemia; F39 Unspecified mood [affective] disorder; F10.20 Alcohol dependence, uncomplicated; Z79.899 Other long term (current) drug therapy; Z72.51 High risk heterosexual behavior

== ENCOUNTER → 2022-11-30 | Outpatient (REF) | payer OTHER ==
[~2022-11-30] MED LIST changes: +AMLO1TAB25 PO; +AMOX875T2 PO; +ATOM10CA PO; +CARA1TAB6 PO; +CARV6.25 PO; +LITH150C PO; +OMEP20TA2 PO
[2022-11-30 20:02] LABS: BASO # 0.1 10^3/uL (0.0-0.2); BASO % 1.4 % (0.0-1.0); EOS # 0.3 10^3/uL (0.0-0.5); EOS % 5.6 % (0.0-3.0); HEMATOCRIT 33.2 % (36.0-47.0); HEMOGLOBIN 9.7 g/dl (12.0-15.5); LYMPH # 0.9 10^3/uL (1.5-5.0); LYMPH % 16.5 % (24.0-44.0); MEAN CORPUSCULAR HEMOGLOBIN 20.8 pg (27.0-33.0); MEAN CORPUSCULAR HGB CONC 29.2 g/dl (32.0-36.5); MEAN CORPUSCULAR VOLUME 71.1 fl (80.0-96.0); MONO # 0.5 10^3/uL (0.0-0.8); MONO % 7.9 % (2.0-8.0); NEUTROPHILS # 3.9 10^3/uL (1.5-8.5); NEUTROPHILS % 68.2 % (36.0-66.0); PLATELET COUNT, AUTOMATED 260 10^3/uL (150-450); RED BLOOD COUNT 4.67 10^6/uL (4.00-5.40); WHITE BLOOD COUNT 5.7 10^3/uL (4.0-10.0)
[2022-11-30 20:48] LABS: ALBUMIN 4.1 G/DL (3.2-5.2); ALKALINE PHOSPHATASE 89 U/L (46-116); ALT/SGPT 17 U/L (7.0-40); AST/SGOT 20 U/L (<34); BILIRUBIN,TOTAL 0.3 MG/DL (0.3-1.2); BLOOD UREA NITROGEN 16 MG/DL (9-23); CALCIUM LEVEL 9.4 MG/DL (8.5-10.1); CARBON DIOXIDE LEVEL 28 MMOL/L (20-31); CHLORIDE LEVEL 105 MMOL/L (98-107); CREATININE FOR GFR 0.73 MG/DL (0.55-1.30); GLOMERULAR FILTRATION RATE > 60.0 (>60); GLUCOSE, FASTING 69 MG/DL (60-100); SODIUM LEVEL 142 MMOL/L (136-145); TOTAL IRON BINDING CAPACITY 385 UG/DL (250-425); TOTAL PROTEIN 6.7 G/DL (5.7-8.2); VITAMIN B12 LEVEL 999 PG/ML (211-911)
[2022-11-30 20:56] LABS: FOLATE 19.8 NG/ML (>5.4); IRON (FE) < 5 UG/DL (50-170); PERCENT SATURATION 1.3 % (13.2-45.0)
[2022-11-30 22:04] LABS: HEMOGLOBIN A1c 5.8 % (4.0-6.0)
== END ==
LOC: M LAB REF 16:28
PROVIDERS: ATTEND Family Medicine Addiction Medicine
DX: D64.9 Anemia, unspecified (principal); R73.9 Hyperglycemia, unspecified

== ENCOUNTER 2023-01-27 12:15 | Day surgery (SDC) | payer OTHER ==
[~2023-01-27] VITALS: Ht 160 cm; Wt 59.9 kg
[~2023-01-27 12:15] MED LIST changes: +HYDR50TA70 PO; +LR 1,000 ML IV SCH
[2023-01-27 12:55] LABS: HEMATOCRIT 32.5 % (36.0-47.0); HEMOGLOBIN 9.3 g/dl (12.0-15.5); MEAN CORPUSCULAR HEMOGLOBIN 19.3 pg (27.0-33.0); MEAN CORPUSCULAR HGB CONC 28.6 g/dl (32.0-36.5); MEAN CORPUSCULAR VOLUME 67.6 fl (80.0-96.0); PLATELET COUNT, AUTOMATED 293 10^3/uL (150-450); RED BLOOD COUNT 4.81 10^6/uL (4.00-5.40); WHITE BLOOD COUNT 5.9 10^3/uL (4.0-10.0)
[2023-01-27] MEDS ORDERED: OXYC1TAB23 PO (14:20)
[2023-01-27] MEDS ORDERED: MIDAZOLAM INJ 2MG/2ML VIAL As Ordered ONE (14:34)
[2023-01-27] MEDS ORDERED: propofoL 200 MG/20 ML VIAL As Ordered ONE (14:34)
[2023-01-27] MEDS ORDERED: dexmedeTOMIDine (4MCG/ML)200MCG/50ML BTL (PRECEDEX) As Ordered ONE (14:34)
[2023-01-27] MEDS ORDERED: SUGAMMADEX SODIUM 500 MG/5 ML VIAL (BRIDION) As Ordered ONE (14:34)
[2023-01-27] MEDS ORDERED: ROCURONIUM BROMIDE 50MG/5ML VIAL As Ordered ONE (14:34)
[2023-01-27] MEDS ORDERED: LIDOCAINE 2% 100MG/5ML SDV (FOR ANES.) As Ordered ONE (14:34)
[2023-01-27] MEDS ORDERED: ONDANSETRON 4MG 2ML VIAL As Ordered ONE (14:34)
[2023-01-27] MEDS ORDERED: fentaNYL 100 MCG/2 ML INJECTION As Ordered ONE (14:34)
[2023-01-27] MEDS ORDERED: HYDROmorphone HCL 2MG/ML 1ML VIAL As Ordered ONE (14:34)
[2023-01-27] MEDS ORDERED: ACETAMINOPHEN 1000MG 100ML IV BAG As Ordered ONE (14:43)
[2023-01-27 17:13] VITALS: BP 134/70; TEMP 97.7; O2SAT 100
== END 2023-01-27 17:26 | disposition home or self-care (01) ==
LOC: M SDC 12:15
PROVIDERS: ATTEND Specialist
DX: Z30.2 Encounter for sterilization (principal); I10 Essential (primary) hypertension; K21.9 Gastro-esophageal reflux disease without esophagitis; F31.9 Bipolar disorder, unspecified; Z79.899 Other long term (current) drug therapy; Z98.84 Bariatric surgery status
CPT/HCPCS: 36415; 58661; 81025; 85027; 88302; J0131; J0665; J1100; J1170; J2250; J2405; J3010

== ENCOUNTER → 2023-06-09 | Outpatient (REF) | payer OTHER ==
[~2023-06-09] MED LIST changes: +LABE100T40 PO; -LABE100T71 PO; -LR 1,000 ML IV SCH; +OXYC1TAB23 PO
[2023-06-09 12:43] LABS: APPEARANCE, URINE HAZY (CLEAR); BACTERIA, URINE AUTO 2+ (NEGATIVE); BILIRUBIN, URINE AUTO NEGATIVE (NEGATIVE); BLOOD, URINE BLOOD NEGATIVE (NEGATIVE); COLOR, URINE YELLOW (YELLOW); GLUCOSE, URINE (UA) AUTO NEGATIVE (NEGATIVE); KETONE, URINE AUTO NEGATIVE (NEGATIVE); LEUKOCYTE ESTERASE, URINE AUTO TRACE (NEGATIVE); MUCUS, URINE SMALL (NEGATIVE); NITRITE, URINE AUTO NEGATIVE (NEGATIVE); PROTEIN, URINE AUTO 2+ mg/dL (NEGATIVE); RBC, URINE AUTO 2 /HPF (0-3); SPECIFIC GRAVITY URINE AUTO 1.017 (1.002-1.035); SQUAMOUS EPITHELIAL CELL UR AU 1 /HPF (0-6); UROBILINOGEN, URINE AUTO 0.2 mg/dL (0.0-2.0); WBC, URINE AUTO 51 /HPF (0-3)
== END ==
LOC: M LAB REF 11:53
PROVIDERS: ATTEND Physician Assistant
DX: N39.0 Urinary tract infection, site not specified (principal)

== ENCOUNTER 2023-10-26 20:19 | Inpatient (IN) | payer OTHER ==
[~2023-10-26] VITALS: Ht 160 cm; Wt 56.9 kg
[2023-10-26 21:07] LABS: BASO # 0.1 10^3/uL (0.0-0.2); BASO % 1.4 % (0.0-1.0); EOS # 0.2 10^3/uL (0.0-0.5); EOS % 2.5 % (0.0-3.0); LYMPH # 1.3 10^3/uL (1.5-5.0); LYMPH % 16.9 % (24.0-44.0); MEAN CORPUSCULAR HEMOGLOBIN 17.5 pg (27.0-33.0); MEAN CORPUSCULAR HGB CONC 27.6 g/dl (32.0-36.5); MEAN CORPUSCULAR VOLUME 63.5 fl (80.0-96.0); MONO # 0.6 10^3/uL (0.0-0.8); MONO % 7.6 % (2.0-8.0); NEUTROPHILS # 5.7 10^3/uL (1.5-8.5); NEUTROPHILS % 71.3 % (36.0-66.0); PLATELET COUNT, AUTOMATED 330 10^3/uL (150-450); RED BLOOD COUNT 4.57 10^6/uL (4.00-5.40); WHITE BLOOD COUNT 7.9 10^3/uL (4.0-10.0)
[2023-10-26 21:32] LABS: CK-MB VALUE MASS < 1.0 NG/ML (<3.6); LIPASE 30 U/L (12-53)
[2023-10-26 21:33] LABS: CPK CREATINE PHOSPHOKINASE 51 U/L (34-145); MB/CK RELATIVE INDEX 1.96 (< OR =4)
[2023-10-26 21:34] LABS: ALBUMIN 4.1 G/DL (3.2-5.2); ALKALINE PHOSPHATASE 81 U/L (46-116); ALT/SGPT 11 U/L (7.0-40); AST/SGOT 9 U/L (<34); BILIRUBIN,DIRECT 0.2 MG/DL (<0.4); BILIRUBIN,TOTAL 0.5 MG/DL (0.3-1.2); BLOOD UREA NITROGEN 15 MG/DL (9-23); CALCIUM LEVEL 9.7 MG/DL (8.5-10.1); CARBON DIOXIDE LEVEL 30 MMOL/L (20-31); CHLORIDE LEVEL 104 MMOL/L (98-107); CREATININE FOR GFR 0.68 MG/DL (0.55-1.30); GLOMERULAR FILTRATION RATE > 60.0 (>60); GLUCOSE, FASTING 102 MG/DL (60-100); POTASSIUM SERUM 4.2 MMOL/L (3.5-5.1); SODIUM LEVEL 139 MMOL/L (136-145); TOTAL PROTEIN 6.8 G/DL (5.7-8.2)
[2023-10-26] MEDS ORDERED: ISOVUE-370 76% 100ML VIAL As Ordered ONE (22:01)
[2023-10-26 22:32] LABS: LITHIUM LEVEL < 0.10 MMOL/L (1.0-1.20)
[2023-10-26] MEDS: MAALOX 30 ML SUSP *UDC PO ONE (22:46)
[2023-10-26] MEDS: LIDOCAINE VISCOUS 2% SOLN 15ML UDC PO ONE (22:46)
[2023-10-26 23:33] LABS: IRON (FE) 13 UG/DL (50-170); PERCENT SATURATION 3.1 % (13.2-45.0); TOTAL IRON BINDING CAPACITY 426 UG/DL (250-425)
[2023-10-26 23:35] LABS: HEMATOCRIT 26.1 % (36.0-47.0); HEMOGLOBIN 7.4 g/dl (12.0-15.5)
[2023-10-26] MEDS: PANTOPRAZOLE 40MG VIAL IV ONE (23:59)
[2023-10-27] VITALS (19 sets, daily range): BP systolic 143–186; BP diastolic 84–105; TEMP 97.3–98.1; O2SAT 97–100
[2023-10-27] MEDS: SUCRALFATE 1 GM TAB PO ONE (00:46)
[2023-10-27] MEDS ORDERED: OMEP1CAP73 PO (02:05)
[2023-10-27] MEDS ORDERED: CARA1TAB6 PO (02:05)
[2023-10-27] MEDS ORDERED: HOME MED LIST COMPLETE! XX SCH (02:10)
[2023-10-27] MEDS ORDERED: LORazepam 2 MG TAB PO PRN (02:45)
[2023-10-27] MEDS: hydrALAZINE 20MG/ML 1ML VIAL IV ONE (05:30)
[2023-10-27 06:27] LABS: HEMATOCRIT 28.3 % (36.0-47.0); HEMOGLOBIN 8.1 g/dl (12.0-15.5); MEAN CORPUSCULAR HEMOGLOBIN 18.9 pg (27.0-33.0); MEAN CORPUSCULAR HGB CONC 28.6 g/dl (32.0-36.5); PLATELET COUNT, AUTOMATED 255 10^3/uL (150-450); RED BLOOD COUNT 4.29 10^6/uL (4.00-5.40); WHITE BLOOD COUNT 6.5 10^3/uL (4.0-10.0)
[2023-10-27 06:59] LABS: FERRITIN < 0.9 NG/ML (7.3-270.7); FOLATE 16.27 NG/ML (>5.4); VITAMIN B12 LEVEL 1560 PG/ML (211-911)
[2023-10-27 08:21] LABS: BLOOD UREA NITROGEN 15 MG/DL (9-23); CALCIUM LEVEL 9.1 MG/DL (8.5-10.1); CARBON DIOXIDE LEVEL 28 MMOL/L (20-31); CHLORIDE LEVEL 106 MMOL/L (98-107); CREATININE FOR GFR 0.63 MG/DL (0.55-1.30); GLOMERULAR FILTRATION RATE > 60.0 (>60); GLUCOSE, FASTING 83 MG/DL (60-100); POTASSIUM SERUM 3.6 MMOL/L (3.5-5.1); SODIUM LEVEL 137 MMOL/L (136-145)
[2023-10-27] MEDS: MULTIVITAMINS/MINERALS THERAP 1 TAB PO SCH (08:46)
[2023-10-27] MEDS: THIAMINE 100 MG TAB PO SCH (08:47)
[2023-10-27] MEDS: SUCRALFATE 1 GM TAB PO SCH ×2 (08:47→16:40)
[2023-10-27] MEDS: PANTOPRAZOLE 40MG VIAL IV SCH (08:47)
[2023-10-27] MEDS: FOLIC ACID 1MG TAB PO SCH (08:47)
[2023-10-27] MEDS ORDERED: IRON SUCROSE 100MG 5ML VIAL IV ONE (10:00)
[2023-10-27] MEDS: ACETAMINOPHEN TAB 650MG DOSE (2X325MG) PO PRN (10:07)
[2023-10-27] MEDS: IRON SUCROSE 300 MG in NS 250 ML OVER 90 MIN. IV ONE (10:11)
[2023-10-27] MEDS: NICOTINE 21MG/24HR 1 EA TRANSDERMAL TD SCH (11:46)
[2023-10-27 13:02] LABS: HEMATOCRIT 33.2 % (36.0-47.0); HEMOGLOBIN 9.8 g/dl (12.0-15.5); MEAN CORPUSCULAR HGB CONC 29.5 g/dl (32.0-36.5); MEAN CORPUSCULAR VOLUME 67.8 fl (80.0-96.0); PLATELET COUNT, AUTOMATED 235 10^3/uL (150-450); WHITE BLOOD COUNT 6.2 10^3/uL (4.0-10.0)
[2023-10-27] MEDS ORDERED: LIDOCAINE 2% 100MG/5ML SDV (FOR ANES.) As Ordered ONE (13:03)
[2023-10-27] MEDS ORDERED: fentaNYL 100 MCG/2 ML INJECTION As Ordered ONE (13:03)
[2023-10-27] MEDS ORDERED: propofoL 200 MG/20 ML VIAL As Ordered ONE (13:03)
[2023-10-27] MEDS: amLODIPine 5 MG TAB PO SCH (20:22)
[2023-10-27 21:56] LABS: HEMATOCRIT 30.2 % (36.0-47.0); MEAN CORPUSCULAR HEMOGLOBIN 20.2 pg (27.0-33.0); MEAN CORPUSCULAR HGB CONC 29.8 g/dl (32.0-36.5); MEAN CORPUSCULAR VOLUME 67.9 fl (80.0-96.0); PLATELET COUNT, AUTOMATED 238 10^3/uL (150-450); RED BLOOD COUNT 4.45 10^6/uL (4.00-5.40); WHITE BLOOD COUNT 7.3 10^3/uL (4.0-10.0)
[2023-10-28] VITALS (7 sets, daily range): BP systolic 141–165; BP diastolic 81–91; TEMP 97.5–98.1; O2SAT 98–100
[2023-10-28 06:46] LABS: BASO # 0.2 10^3/uL (0.0-0.2); EOS # 0.6 10^3/uL (0.0-0.5); EOS % 8.4 % (0.0-3.0); HEMATOCRIT 32.2 % (36.0-47.0); HEMOGLOBIN 9.5 g/dl (12.0-15.5); LYMPH # 1.2 10^3/uL (1.5-5.0); LYMPH % 15.2 % (24.0-44.0); MEAN CORPUSCULAR HGB CONC 29.5 g/dl (32.0-36.5); MEAN CORPUSCULAR VOLUME 67.8 fl (80.0-96.0); MONO # 0.5 10^3/uL (0.0-0.8); MONO % 7.1 % (2.0-8.0); NEUTROPHILS # 5.1 10^3/uL (1.5-8.5); NEUTROPHILS % 67.2 % (36.0-66.0); PLATELET COUNT, AUTOMATED 231 10^3/uL (150-450); RED BLOOD COUNT 4.75 10^6/uL (4.00-5.40); WHITE BLOOD COUNT 7.6 10^3/uL (4.0-10.0)
[2023-10-28 07:04] LABS: ALBUMIN 3.5 G/DL (3.2-5.2); ALKALINE PHOSPHATASE 72 U/L (46-116); ALT/SGPT < 9 U/L (7.0-40); AST/SGOT < 8 U/L (<34); BILIRUBIN,TOTAL 0.7 MG/DL (0.3-1.2); BLOOD UREA NITROGEN 13 MG/DL (9-23); CALCIUM LEVEL 9.1 MG/DL (8.5-10.1); CARBON DIOXIDE LEVEL 25 MMOL/L (20-31); CHLORIDE LEVEL 107 MMOL/L (98-107); CREATININE FOR GFR 0.61 MG/DL (0.55-1.30); GLOMERULAR FILTRATION RATE > 60.0 (>60); GLUCOSE, FASTING 63 MG/DL (60-100); MAGNESIUM LEVEL 1.7 MG/DL (1.8-2.4); POTASSIUM SERUM 3.5 MMOL/L (3.5-5.1); SODIUM LEVEL 138 MMOL/L (136-145); TOTAL PROTEIN 5.9 G/DL (5.7-8.2)
[2023-10-28] MEDS: MAGNESIUM OXIDE 400MG TAB (MAG-OX) PO SCH (08:48)
[2023-10-28] MEDS: CAFFEINE CITRATE 60MG/3ML *ORAL SOLUTION PO SCH (09:00)
[2023-10-28] MEDS: MIRALAX *UNIT DOSE* 17GM PACKET PO SCH (16:26)
[2023-10-28 16:55] LABS: HEMATOCRIT 31.4 % (36.0-47.0); HEMOGLOBIN 9.2 g/dl (12.0-15.5); MEAN CORPUSCULAR HEMOGLOBIN 19.7 pg (27.0-33.0); MEAN CORPUSCULAR HGB CONC 29.3 g/dl (32.0-36.5); MEAN CORPUSCULAR VOLUME 67.4 fl (80.0-96.0); PLATELET COUNT, AUTOMATED 234 10^3/uL (150-450); RED BLOOD COUNT 4.66 10^6/uL (4.00-5.40); WHITE BLOOD COUNT 6.5 10^3/uL (4.0-10.0)
[2023-10-29] VITALS (8 sets, daily range): BP systolic 148–162; BP diastolic 90–100; TEMP 97.5–98.6; O2SAT 98–99
[2023-10-29 06:58] LABS: BASO # 0.1 10^3/uL (0.0-0.2); EOS # 0.6 10^3/uL (0.0-0.5); EOS % 9.3 % (0.0-3.0); HEMATOCRIT 33.1 % (36.0-47.0); HEMOGLOBIN 9.5 g/dl (12.0-15.5); LYMPH # 1.3 10^3/uL (1.5-5.0); LYMPH % 21.6 % (24.0-44.0); MEAN CORPUSCULAR HEMOGLOBIN 19.4 pg (27.0-33.0); MEAN CORPUSCULAR HGB CONC 28.7 g/dl (32.0-36.5); MEAN CORPUSCULAR VOLUME 67.7 fl (80.0-96.0); MONO # 0.6 10^3/uL (0.0-0.8); MONO % 9.7 % (2.0-8.0); NEUTROPHILS # 3.4 10^3/uL (1.5-8.5); NEUTROPHILS % 57.1 % (36.0-66.0); PLATELET COUNT, AUTOMATED 253 10^3/uL (150-450); RED BLOOD COUNT 4.89 10^6/uL (4.00-5.40)
[2023-10-29 07:21] LABS: BLOOD UREA NITROGEN 9 MG/DL (9-23); CALCIUM LEVEL 9.2 MG/DL (8.5-10.1); CARBON DIOXIDE LEVEL 28 MMOL/L (20-31); CHLORIDE LEVEL 107 MMOL/L (98-107); CREATININE FOR GFR 0.63 MG/DL (0.55-1.30); GLOMERULAR FILTRATION RATE > 60.0 (>60); GLUCOSE, FASTING 73 MG/DL (60-100); POTASSIUM SERUM 3.8 MMOL/L (3.5-5.1); SODIUM LEVEL 140 MMOL/L (136-145)
[2023-10-29 08:22] LABS: INR 1.15; PARTIAL THROMBOPLASTIN TIME 29.9 SECONDS (24.8-34.2); PROTHROMBIN TIME 14.4 SECONDS (12.5-14.5)
[2023-10-29] MEDS: SENNA 8.6 MG TAB (SENOKOT) PO SCH (12:20)
[2023-10-29 17:27] LABS: HEMATOCRIT 32.9 % (36.0-47.0); HEMOGLOBIN 9.6 g/dl (12.0-15.5); MEAN CORPUSCULAR HEMOGLOBIN 19.7 pg (27.0-33.0); MEAN CORPUSCULAR HGB CONC 29.2 g/dl (32.0-36.5); MEAN CORPUSCULAR VOLUME 67.4 fl (80.0-96.0); PLATELET COUNT, AUTOMATED 260 10^3/uL (150-450); RED BLOOD COUNT 4.88 10^6/uL (4.00-5.40); WHITE BLOOD COUNT 7.3 10^3/uL (4.0-10.0)
[2023-10-30] VITALS (8 sets, daily range): BP systolic 148–162; BP diastolic 78–103; TEMP 97.3–97.9; O2SAT 96–100
[2023-10-30 05:55] LABS: BASO # 0.1 10^3/uL (0.0-0.2); BASO % 1.9 % (0.0-1.0); EOS # 0.5 10^3/uL (0.0-0.5); EOS % 9.3 % (0.0-3.0); HEMATOCRIT 32.9 % (36.0-47.0); HEMOGLOBIN 9.5 g/dl (12.0-15.5); LYMPH # 1.3 10^3/uL (1.5-5.0); LYMPH % 24.9 % (24.0-44.0); MEAN CORPUSCULAR HEMOGLOBIN 19.5 pg (27.0-33.0); MEAN CORPUSCULAR HGB CONC 28.9 g/dl (32.0-36.5); MEAN CORPUSCULAR VOLUME 67.6 fl (80.0-96.0); MONO # 0.5 10^3/uL (0.0-0.8); MONO % 9.3 % (2.0-8.0); NEUTROPHILS # 2.9 10^3/uL (1.5-8.5); NEUTROPHILS % 54.4 % (36.0-66.0); PLATELET COUNT, AUTOMATED 240 10^3/uL (150-450); RED BLOOD COUNT 4.87 10^6/uL (4.00-5.40); WHITE BLOOD COUNT 5.4 10^3/uL (4.0-10.0)
[2023-10-30 06:16] LABS: INR 1.15; PARTIAL THROMBOPLASTIN TIME 31.2 SECONDS (24.8-34.2); PROTHROMBIN TIME 14.4 SECONDS (12.5-14.5)
[2023-10-30] MEDS: NS 1,000 ML IV SCH ×2 (06:55→09:30)
[2023-10-30] MEDS ORDERED: LIDOCAINE 1% MDV 20ML VIAL As Ordered ONE (07:24)
[2023-10-30] MEDS ORDERED: ISOVUE-300 61% 100ML VIAL As Ordered ONE (07:24)
[2023-10-30] MEDS ORDERED: MIDAZOLAM INJ 2MG/2ML VIAL As Ordered ONE (07:37)
[2023-10-30] MEDS ORDERED: GLUCAGON INJ 1MG VIAL As Ordered ONE (08:30)
[2023-10-30] MEDS ORDERED: ONDANSETRON 4MG 2ML VIAL As Ordered ONE (08:36)
[2023-10-30] MEDS ORDERED: ATROPINE SULF 1MG/10ML SYRINGE As Ordered ONE (09:13)
[2023-10-30] MEDS ORDERED: ONDANSETRON 4MG 2ML VIAL IV PRN (09:30)
[2023-10-30] MEDS ORDERED: AMLO1TAB25 PO (13:01)
[2023-10-30] MEDS ORDERED: CARA1TAB6 PO (13:01)
[2023-10-30] MEDS ORDERED: OMEP40CA4 PO (13:01)
[2023-10-30] MEDS ORDERED: NICO21PAT TD (13:01)
[2023-10-30] MEDS: amLODIPine 5 MG TAB PO ONE (13:07)
== END 2023-10-30 17:00 | disposition home or self-care (01) | DRG 241 ==
LOC: M ED 20:19 → M ED INP 10-27 02:11 → M MS5PR 10-27 07:50
PROVIDERS: ADMIT Internal Medicine; ATTEND Student in an Organized Health Care Education/Training Program
PROC: 0DB58ZX Excision of Esophagus, Via Natural or Artificial Opening Endoscopic, Diagnostic (ICD-10-PCS; 2023-10-27)
PROC: 0W3P8ZZ Control Bleeding in Gastrointestinal Tract, Via Natural or Artificial Opening Endoscopic (ICD-10-PCS; principal; 2023-10-27 17:30)
PROC: B414ZZZ Fluoroscopy of Superior Mesenteric Artery (ICD-10-PCS; 2023-10-30)
DX: K25.4 Chronic or unspecified gastric ulcer with hemorrhage (principal); E83.42 Hypomagnesemia; Z98.84 Bariatric surgery status; F39 Unspecified mood [affective] disorder; F10.21 Alcohol dependence, in remission; F17.200 Nicotine dependence, unspecified, uncomplicated; D50.9 Iron deficiency anemia, unspecified; K20.90 Esophagitis, unspecified without bleeding; D62 Acute posthemorrhagic anemia; Z79.899 Other long term (current) drug therapy

== ENCOUNTER → 2024-01-12 | Outpatient (CLI) | payer OTHER ==
[~2024-01-12] MED LIST changes: +NICO21PAT TD; +OMEP1CAP73 PO
[2024-01-12 10:24] LABS: BASO # 0.1 10^3/uL (0.0-0.2); EOS # 0.3 10^3/uL (0.0-0.5); EOS % 5.9 % (0.0-3.0); HEMOGLOBIN 12.3 g/dl (12.0-15.5); LYMPH # 1.1 10^3/uL (1.5-5.0); LYMPH % 24.4 % (24.0-44.0); MEAN CORPUSCULAR HEMOGLOBIN 22.5 pg (27.0-33.0); MEAN CORPUSCULAR VOLUME 75.1 fl (80.0-96.0); MONO # 0.4 10^3/uL (0.0-0.8); MONO % 7.8 % (2.0-8.0); NEUTROPHILS # 2.7 10^3/uL (1.5-8.5); NEUTROPHILS % 59.7 % (36.0-66.0); PLATELET COUNT, AUTOMATED 242 10^3/uL (150-450); RED BLOOD COUNT 5.46 10^6/uL (4.00-5.40); WHITE BLOOD COUNT 4.6 10^3/uL (4.0-10.0)
[2024-01-12 10:52] LABS: HEMOGLOBIN A1c 5.1 % (4.0-6.0)
[2024-01-12 10:53] LABS: ALBUMIN 3.8 G/DL (3.2-5.2); ALKALINE PHOSPHATASE 77 U/L (35-104); ALT/SGPT 12 U/L (7.0-40); AST/SGOT 9 U/L (<34); BILIRUBIN,TOTAL 0.6 MG/DL (0.3-1.2); BLOOD UREA NITROGEN 20 MG/DL (9-23); CALCIUM LEVEL 9.5 MG/DL (8.5-10.1); CARBON DIOXIDE LEVEL 28 MMOL/L (20-31); CHLORIDE LEVEL 108 MMOL/L (98-107); CHOLESTEROL LEVEL 154 MG/DL (<200); CHOLESTEROL RISK RATIO 3.07 (<5); CREATININE FOR GFR 0.75 MG/DL (0.55-1.30); GLOMERULAR FILTRATION RATE > 60.0 (>60); GLUCOSE, FASTING 90 MG/DL (60-100); HDL CHOLESTEROL 50.1 MG/DL (>40); LDL CHOLESTEROL 82.5 MG/DL (<100); MAGNESIUM LEVEL 2.2 MG/DL (1.8-2.4); NON-HDL-C 103.9 MG/DL; POTASSIUM SERUM 4.3 MMOL/L (3.5-5.1); SODIUM LEVEL 140 MMOL/L (136-145); TOTAL PROTEIN 6.5 G/DL (5.7-8.2); TRIGLYCERIDES LEVEL 107 MG/DL (<150)
[2024-01-12 10:55] LABS: FREE T4 1.13 NG/DL (0.89-1.76)
== END ==
LOC: M LAB 09:42
PROVIDERS: ATTEND Nurse Practitioner Psychiatric/Mental Health
DX: F31.32 Bipolar disorder, current episode depressed, moderate (principal)

== ENCOUNTER → 2024-02-24 | Outpatient (CLI) | payer OTHER ==
[~2024-02-24] MED LIST changes: +OMEP-611 PO; -OMEP20TA2 PO
[2024-02-24 11:47] LABS: ALBUMIN 3.7 G/DL (3.2-5.2); ALKALINE PHOSPHATASE 71 U/L (35-104); ALT/SGPT 14 U/L (7.0-40); AST/SGOT 12 U/L (<34); BILIRUBIN,TOTAL 0.4 MG/DL (0.3-1.2); BLOOD UREA NITROGEN 17 MG/DL (9-23); CALCIUM LEVEL 9.6 MG/DL (8.5-10.1); CARBON DIOXIDE LEVEL 31 MMOL/L (20-31); CHLORIDE LEVEL 106 MMOL/L (98-107); CREATININE FOR GFR 0.84 MG/DL (0.55-1.30); GLOMERULAR FILTRATION RATE > 60.0 (>60); GLUCOSE, FASTING 79 MG/DL (60-100); LITHIUM LEVEL 0.82 MMOL/L (1.0-1.20); POTASSIUM SERUM 4.3 MMOL/L (3.5-5.1); SODIUM LEVEL 140 MMOL/L (136-145); TOTAL PROTEIN 6.6 G/DL (5.7-8.2)
[2024-02-24 11:49] LABS: THYROID STIMULATING HORMONE 2.294 uIU/ML (0.55-4.78)
== END ==
LOC: M LAB 08:46
PROVIDERS: ATTEND Nurse Practitioner Psychiatric/Mental Health
DX: F31.32 Bipolar disorder, current episode depressed, moderate (principal)

== ENCOUNTER → 2024-04-22 | Outpatient (CLI) | payer OTHER ==
[2024-04-22 12:09] LABS: LITHIUM LEVEL 0.68 MMOL/L (1.0-1.20)
[2024-04-22 12:10] LABS: ALBUMIN 3.8 G/DL (3.2-5.2); ALKALINE PHOSPHATASE 68 U/L (35-104); ALT/SGPT < 9 U/L (7.0-40); AST/SGOT 10 U/L (<34); BILIRUBIN,TOTAL 0.4 MG/DL (0.3-1.2); BLOOD UREA NITROGEN 20 MG/DL (9-23); CALCIUM LEVEL 9.2 MG/DL (8.5-10.1); CARBON DIOXIDE LEVEL 30 MMOL/L (20-31); CHLORIDE LEVEL 107 MMOL/L (98-107); CREATININE FOR GFR 0.82 MG/DL (0.55-1.30); GLOMERULAR FILTRATION RATE > 60.0 (>60); GLUCOSE, FASTING 73 MG/DL (60-100); POTASSIUM SERUM 4.6 MMOL/L (3.5-5.1); SODIUM LEVEL 141 MMOL/L (136-145); THYROID STIMULATING HORMONE 2.161 uIU/ML (0.55-4.78); TOTAL PROTEIN 6.4 G/DL (5.7-8.2)
[2024-04-22 12:12] LABS: TOTAL 25(OH) VITAMIN D 26.3 NG/ML (20.0-100.0)
== END ==
LOC: M LAB 08:35
PROVIDERS: ATTEND Nurse Practitioner Psychiatric/Mental Health
DX: F31.32 Bipolar disorder, current episode depressed, moderate (principal)

== ENCOUNTER → 2024-05-23 | Outpatient (CLI) | payer OTHER ==
[2024-05-23 09:52] LABS: BLOOD UREA NITROGEN 17 MG/DL (9-23); CALCIUM LEVEL 9.8 MG/DL (8.5-10.1); CARBON DIOXIDE LEVEL 30 MMOL/L (20-31); CHLORIDE LEVEL 104 MMOL/L (98-107); CREATININE FOR GFR 0.86 MG/DL (0.55-1.30); GLOMERULAR FILTRATION RATE > 60.0 (>60); GLUCOSE, FASTING 80 MG/DL (60-100); LITHIUM LEVEL 1.04 MMOL/L (1.0-1.20); POTASSIUM SERUM 4.3 MMOL/L (3.5-5.1); SODIUM LEVEL 140 MMOL/L (136-145)
== END ==
LOC: M LAB 08:26
PROVIDERS: ATTEND Nurse Practitioner Psychiatric/Mental Health
DX: F31.32 Bipolar disorder, current episode depressed, moderate (principal)

== ENCOUNTER → 2024-09-23 | Outpatient (REF) | payer OTHER ==
[2024-09-23 22:25] LABS: APPEARANCE, URINE CLOUDY (CLEAR); BACTERIA, URINE AUTO 2+ (NEGATIVE); BILIRUBIN, URINE AUTO NEGATIVE (NEGATIVE); BLOOD, URINE BLOOD NEGATIVE (NEGATIVE); GLUCOSE, URINE (UA) AUTO NEGATIVE (NEGATIVE); KETONE, URINE AUTO TRACE mg/dL (NEGATIVE); LEUKOCYTE ESTERASE, URINE AUTO 3+ (NEGATIVE); MUCUS, URINE SMALL (NEGATIVE); NITRITE, URINE AUTO POSITIVE (NEGATIVE); PROTEIN, URINE AUTO 2+ mg/dL (NEGATIVE); RBC, URINE AUTO 26 /HPF (0-3); SPECIFIC GRAVITY URINE AUTO 1.020 (1.002-1.035); SQUAMOUS EPITHELIAL CELL UR AU 0 /HPF (0-6); UROBILINOGEN, URINE AUTO 2.0 mg/dL (0.0-2.0); WBC, URINE AUTO TNTC /HPF (0-3)
== END ==
LOC: M LAB REF 21:22
PROVIDERS: ATTEND Physician Assistant Medical
DX: N39.0 Urinary tract infection, site not specified (principal)

== ENCOUNTER 2024-10-12 17:43 | Emergency (ER) | payer OTHER ==
[~2024-10-12] VITALS: Ht 160 cm; Wt 63.0 kg
[2024-10-12 18:35] LABS: PLATELET COUNT, AUTOMATED 260 10^3/uL (150-450)
[2024-10-12] MEDS ORDERED: LITH300T2 (18:40)
[2024-10-12] MEDS ORDERED: VITA200032 (18:40)
[2024-10-12] MEDS ORDERED: LURA40TA2 (18:40)
[2024-10-12] MEDS ORDERED: DOCU100C16 (18:40)
[2024-10-12] MEDS ORDERED: METH1TAB13 (18:40)
[2024-10-12] MEDS ORDERED: METH5TAB76 (18:40)
[2024-10-12 19:01] LABS: ETHYL ALCOHOL (ETHANOL) < 0.003 % (0.000-0.010)
[2024-10-12 19:03] LABS: SALICYLATE LEVEL < 3.0 MG/DL (<30)
[2024-10-12 19:04] LABS: ALT/SGPT 10 U/L (7.0-40); AST/SGOT 13 U/L (<34); CALCIUM LEVEL 8.8 MG/DL (8.5-10.1); CARBON DIOXIDE LEVEL 26 MMOL/L (20-31); CHLORIDE LEVEL 107 MMOL/L (98-107); CREATININE FOR GFR 0.78 MG/DL (0.55-1.30); GLOMERULAR FILTRATION RATE > 90.0 (>58); POTASSIUM SERUM 3.9 MMOL/L (3.5-5.1); SODIUM LEVEL 143 MMOL/L (136-145)
[2024-10-12 19:28] LABS: HCG, SERUM QUALITATIVE NEGATIVE (NEGATIVE)
[2024-10-12 20:50] VITALS: BP 167/83; TEMP 97.9; O2SAT 96
== END 2024-10-12 20:52 | disposition home or self-care (01) ==
LOC: M ED 17:43
DX: F43.0 Acute stress reaction (principal); I10 Essential (primary) hypertension; F31.30 Bipolar disorder, current episode depressed, mild or moderate severity, unspecified; Z98.84 Bariatric surgery status; F17.200 Nicotine dependence, unspecified, uncomplicated; Z79.899 Other long term (current) drug therapy

== ENCOUNTER → 2024-11-08 | Outpatient (REF) | payer OTHER ==
[~2024-11-08] MED LIST changes: +DOCU100C16; +LITH300T2; +LURA40TA2; +METH1TAB13; +METH5TAB76; +VITA200032
[2024-11-08 20:25] LABS: AMORPHOUS SEDIMENT SMALL (NEGATIVE); APPEARANCE, URINE CLOUDY (CLEAR); BACTERIA, URINE AUTO NEGATIVE (NEGATIVE); BILIRUBIN, URINE AUTO NEGATIVE (NEGATIVE); BLOOD, URINE BLOOD NEGATIVE (NEGATIVE); GLUCOSE, URINE (UA) AUTO NEGATIVE (NEGATIVE); KETONE, URINE AUTO NEGATIVE (NEGATIVE); LEUKOCYTE ESTERASE, URINE AUTO NEGATIVE (NEGATIVE); NITRITE, URINE AUTO NEGATIVE (NEGATIVE); PROTEIN, URINE AUTO NEGATIVE (NEGATIVE); RBC, URINE AUTO 0 /HPF (0-3); SPECIFIC GRAVITY URINE AUTO 1.010 (1.002-1.035); SQUAMOUS EPITHELIAL CELL UR AU 0 /HPF (0-6); UROBILINOGEN, URINE AUTO 0.2 mg/dL (0.0-2.0); WBC, URINE AUTO 0 /HPF (0-3)
[2024-11-08 21:29] LABS: Trichomonas vaginalis (AMP) NOT DETECTED (NEGATIVE)
[2024-11-08 21:53] LABS: GC DNA AMPLIFICATION NEGATIVE (NEGATIVE)
== END ==
LOC: M LAB REF 20:09
PROVIDERS: ATTEND Physician Assistant
DX: N39.0 Urinary tract infection, site not specified (principal); Z20.2 Contact with and (suspected) exposure to infections with a predominantly sexual mode of transmission

== ENCOUNTER → 2025-01-24 | Outpatient (CLI) | payer OTHER ==
[2025-01-24 07:35] LABS: BASO # 0.1 10^3/uL (0.0-0.2); BASO % 1.3 % (0.0-1.0); EOS # 0.4 10^3/uL (0.0-0.5); EOS % 8.0 % (0.0-3.0); LYMPH # 1.2 10^3/uL (1.5-5.0); LYMPH % 21.0 % (24.0-44.0); MONO # 0.5 10^3/uL (0.0-0.8); MONO % 8.6 % (2.0-8.0); NEUTROPHILS # 3.3 10^3/uL (1.5-8.5); NEUTROPHILS % 60.9 % (36.0-66.0); PLATELET COUNT, AUTOMATED 225 10^3/uL (150-450)
[2025-01-24 08:07] LABS: ALT/SGPT 10.0 U/L (7.0-40); AST/SGOT 12.0 U/L (<34); CALCIUM LEVEL 9.5 MG/DL (8.5-10.1); CARBON DIOXIDE LEVEL 31.0 MMOL/L (20-31); CHLORIDE LEVEL 108.0 MMOL/L (98-107); CHOLESTEROL LEVEL 145.0 MG/DL (<200); CHOLESTEROL RISK RATIO 2.87 (<5); CREATININE FOR GFR 0.91 MG/DL (0.55-1.30); GLOMERULAR FILTRATION RATE 81.8 (>58); LDL CHOLESTEROL 82.5 MG/DL (<100); NON-HDL-C 94.5 MG/DL; POTASSIUM SERUM 3.7 MMOL/L (3.5-5.1); SODIUM LEVEL 144.0 MMOL/L (136-145); TRIGLYCERIDES LEVEL 60.0 MG/DL (<150)
[2025-01-24 08:09] LABS: LITHIUM LEVEL 0.56 MMOL/L (1.0-1.20)
[2025-01-24 08:11] LABS: TOTAL 25(OH) VITAMIN D 32.0 NG/ML (20.0-100.0)
[2025-01-24 10:01] LABS: ESTIMATED AVERAGE GLUCOSE 108.0 MG/DL (60-110)
== END ==
LOC: M LAB 07:06
PROVIDERS: ATTEND Nurse Practitioner Psychiatric/Mental Health
DX: F31.32 Bipolar disorder, current episode depressed, moderate (principal)

== ENCOUNTER 2025-02-26 00:57 | Inpatient (IN) | payer OTHER ==
[~2025-02-26] VITALS: Ht 152.4 cm; Wt 68.2 kg
[~2025-02-26 00:57] MED LIST changes: -BACTDSTA PO; -LITH300T2; -LURA40TA2; +LURA40TA2 PO; +SULF-8 PO; -VITA200032; +VITA200032 PO
[2025-02-26] MEDS: ONDANSETRON 4MG TAB PO ONE (01:50)
[2025-02-26 01:58] LABS: PLATELET COUNT, AUTOMATED 217 10^3/uL (150-450)
[2025-02-26 02:21] LABS: ETHYL ALCOHOL (ETHANOL) < 0.003 % (0.000-0.010)
[2025-02-26 02:22] LABS: SALICYLATE LEVEL < 3.0 MG/DL (<30)
[2025-02-26 02:23] LABS: ALT/SGPT 10 U/L (7.0-40); AST/SGOT 16 U/L (<34); CALCIUM LEVEL 10.0 MG/DL (8.5-10.1); CARBON DIOXIDE LEVEL 29 MMOL/L (20-31); CHLORIDE LEVEL 104 MMOL/L (98-107); CREATININE FOR GFR 0.82 MG/DL (0.55-1.30); GLOMERULAR FILTRATION RATE > 90.0 (>58); POTASSIUM SERUM 3.7 MMOL/L (3.5-5.1); SODIUM LEVEL 138 MMOL/L (136-145)
[2025-02-26 04:01] LABS: MAGNESIUM LEVEL 2.0 MG/DL (1.8-2.4)
[2025-02-26] MEDS ORDERED: KCL 20MEQ in NS 1000ML 1,000 ML IV SCH (06:20)
[2025-02-26] MEDS: MAG SULF 1GM/100ML (MAG RUN) 1 GM in IV 1 EA IV ONE (06:30)
[2025-02-26] MEDS ORDERED: MAG SULF 1GM/100ML (MAG RUN) 1 GM in IV 1 EA IV ONE (08:00)
[2025-02-26] MEDS ORDERED: PROP60CA PO (09:31)
[2025-02-26] MEDS ORDERED: VENTAER INH (09:31)
[2025-02-26] MEDS ORDERED: AMLO1TAB25 PO (09:31)
[2025-02-26] MEDS ORDERED: LITH150C PO (09:31)
[2025-02-26] MEDS ORDERED: METH27TA16 PO (09:31)
[2025-02-26] MEDS ORDERED: METH-1022 PO (09:31)
[2025-02-26] MEDS ORDERED: HOME MED LIST COMPLETE! XX SCH (09:35)
[2025-02-26 10:21] LABS: AMPHETAMINES LEVEL URINE NEGATIVE (NEGATIVE); BARBITURATES URINE NEGATIVE (NEGATIVE); BENZODIAZEPINES URINE NEGATIVE (NEGATIVE); CANNABINOIDS URINE NEGATIVE (NEGATIVE); COCAINE METABOLITE URINE NEGATIVE (NEGATIVE); METHADONE URINE NEGATIVE (NEGATIVE); OPIATES URINE NEGATIVE (NEGATIVE); PHENCYCLIDINE URINE NEGATIVE (NEGATIVE)
[2025-02-26] MEDS ORDERED: LORazepam 1 MG TAB PO PRN (12:15)
[2025-02-26] MEDS ORDERED: ACETAMINOPHEN 325 MG TAB PO PRN (12:15)
[2025-02-26] MEDS ORDERED: MOM 30 ML SUSPENSION UDC PO PRN (12:15)
[2025-02-26] MEDS ORDERED: MAALOX 30 ML SUSP *UDC PO PRN (12:15)
[2025-02-26] MEDS ORDERED: HALOPERIDOL 5 MG TAB PO PRN (12:15)
[2025-02-26] MEDS ORDERED: OLANZapine 5 MG TAB PO PRN (12:15)
[2025-02-26] MEDS ORDERED: IBUPROFEN 400 MG TAB PO PRN (12:15)
[2025-02-26] MEDS ORDERED: traZODone 50 MG TAB PO PRN (12:15)
[2025-02-26] MEDS ORDERED: ALBUTEROL 90 MCG/ACT 8 GM HFA INHALER INH PRN (12:15)
[2025-02-26 13:25] VITALS: BP 122/59; TEMP 99.1; O2SAT 96
[2025-02-26] MEDS: NICOTINE 14 MG/24 HR TRANSDERMAL TD SCH (14:27)
[2025-02-26] MEDS: LURASIDONE HCL 40 MG TAB PO SCH (17:59)
[2025-02-26] MEDS: PROPRANOLOL 60MG LA CAP PO SCH (21:00)
[2025-02-26] MEDS: LITHIUM CARBONATE 150 MG CAP PO SCH (21:00)
[2025-02-26] MEDS: amLODIPine 10 MG TAB PO SCH (21:00)
[2025-02-26] MEDS: LITHIUM CARBONATE 300 MG CAP PO SCH (21:00)
[2025-02-27 06:45] VITALS: BP 138/73; TEMP 98.4; O2SAT 96
[2025-02-27 15:07] VITALS: BP 144/72; TEMP 98.9; O2SAT 95
[2025-02-28 06:20] VITALS: BP 140/75; TEMP 98.6; O2SAT 96
[2025-02-28 16:34] VITALS: BP 144/90; TEMP 97.2; O2SAT 99
[2025-03-01 06:35] VITALS: BP 126/69; TEMP 97.1; O2SAT 97
[2025-03-01 14:32] VITALS: BP 130/68; TEMP 98.4; O2SAT 99
[2025-03-02 06:05] VITALS: BP 107/63; TEMP 97; O2SAT 97
[2025-03-02 14:37] VITALS: BP 129/63; TEMP 98.1; O2SAT 98
[2025-03-02 20:13] VITALS: BP 129/63
[2025-03-03 06:33] VITALS: BP 121/62; TEMP 97.2; O2SAT 99
== END 2025-03-03 13:14 | disposition home or self-care (01) | DRG 753 ==
LOC: M ED 00:57 → M ED INP 12:12 → M PSY 13:37
PROVIDERS: ADMIT Internal Medicine; ATTEND Psychiatry & Neurology Psychiatry
DX: F31.9 Bipolar disorder, unspecified (principal); R45.851 Suicidal ideations; T43.592A Poisoning by other antipsychotics and neuroleptics, intentional self-harm, initial encounter; F41.9 Anxiety disorder, unspecified; Z91.51 Personal history of suicidal behavior; Z63.5 Disruption of family by separation and divorce; Z79.899 Other long term (current) drug therapy